=== PATIENT | male | born 1940 | race Caucasian/White ===

== ENCOUNTER → 2019-05-21 10:40 | Outpatient (CLI) | payer MEDICARE, OTHER, SELFPAY ==
[2018-10-28 12:39] VITALS: BMI 29.8
--- NOTE | 2019-05-21 10:56 | MRI_ITS ---
STUDY: MRI LUMBAR SPINE WITHOUT CONTRAST REASON FOR EXAM: Male, 78 years old. back pain radiating into R leg x 4 months TECHNIQUE: Standardized fat and water weighted pulse sequences were obtained in the sagittal and axial planes. COMPARISON: None FINDINGS: T12-L1: Normal endplates. Normal disc height, hydration and morphology. Normal bilateral facet joints. Normal central canal and bilateral lateral recesses. Normal bilateral intervertebral neural foramina. Normal lumbar lordosis. There is no substantial scoliosis. Normal conus medullaris that terminates at the L1. L1-2: Mild bilobed disc protrusion produces mild spinal stenosis and mild bilateral neural foraminal stenosis. L2-3: Markedly loss of disc height but no disc protrusion, spinal stenosis, or neural foraminal stenosis. L3-4: Mild bilateral facet hypertrophy and moderate ligament flavum hypertrophy. Mild broad disc protrusion produces mild spinal stenosis with mild bilateral lateral recess stenosis and mild bilateral neural foraminal stenosis. L4-5: Moderate bilateral facet hypertrophy and severe ligament flavum hypertrophy. Moderate broad disc protrusion produces moderate spinal stenosis with moderate bilateral lateral recess stenosis with abutment of the L5 nerve roots bilaterally and moderate bilateral neural foraminal stenosis with abutment of the exiting L4 nerve roots bilaterally. L5-S1: Moderate bilateral facet hypertrophy. Moderate broad disc protrusion produces moderate spinal stenosis with moderate bilateral lateral recess stenosis with abutment of the S1 nerve roots bilaterally and moderate bilateral neural foraminal stenosis with abutment of the exiting L5 nerve roots bilaterally. Normal visualized sacral ala. Normal visualized paraspinous soft tissue structures. MRI/Spine Lumbar (Routine) IMPRESSION: Multilevel degenerative changes, as described above. Electronically Signed: Teja Gomes MD at 16:03 EST Tel , Service support ,
== END ==
PROVIDERS: Referring Provider Orthopaedic Surgery Orthopaedic Surgery of the Spine; Visit Provider Orthopaedic Surgery Orthopaedic Surgery of the Spine
DX: M51.36 Other intervertebral disc degeneration, lumbar region (principal)
CPT/HCPCS: 72148

== ENCOUNTER 2021-12-07 11:18 | Day surgery (SDC) | payer MEDICARE, OTHER, SELFPAY ==
[2021-12-07] VITALS (9 sets, daily range): BP systolic 112–149; BP diastolic 63–75; PULSE 54–62; RESP 16; TEMP 36.2–36.4; O2SAT 99–100; BMI 27.3
[2021-12-07] MEDS: Lactated Ringers 1,000 ML 15 ML IV (11:55)
--- NOTE | 2021-12-07 11:57 | HP.PCM_ITS ---
History and Physical Date of Admission: 12/07/21 HISTORY AND PHYSICAL ? José Luis Gonsalez 1940 ? ? REFERRING PHYSICIAN: Juan Antonio Oakes, DO ? CHIEF COMPLAINT: Consult (Port placement) ? HPI: The patient is a 81 year old male with a diagnosis of Malignant neoplasm of stomach, unspecified location (hcc) (primary encounter diagnosis). José Luis is currently scheduled to undergo chemotherapy and needs vascular access for treatment. The patient denies a prior history of central venous access. ? The patient is right hand dominant. ? The patient is being seen by me today at the request of Dr. Oakes for my opinion and advice regarding Malignant neoplasm of stomach, unspecified location (hcc) (primary encounter diagnosis). ? ? PAST MEDICAL HISTORY PAST MEDICAL HISTORY Diagnosis Date ? Arthritis ? ? Betancur esophagus ? ? Diabetes (HCC) ? ? Lumbar stenosis ? ? ? PAST SURGICAL HISTORY PAST SURGICAL HISTORY Procedure Laterality Date ? EGD DIAGNOSTIC ? 11/17/2021 ? PAST SURGICAL HISTORY OF ? ? ? spine injections for pain management ? REVISE MEDIAN N/CARPAL TUNNEL SURG Bilateral 01/31/2021 ? Bilateral carpal tunnel release ? ? ? CURRENT MEDICATIONS Current Outpatient Medications Medication Sig Dispense Refill ? tamsulosin (FLOMAX) 0.4 mg Take 1 capsule by mouth daily at bedtime. 30 capsule 5 ? ondansetron orally disintegrating (ZOFRAN ODT) 4 mg disintegrating tablet Take 1 tablet by mouth every 6 hours as needed for nausea/vomiting. 30 tablet 2 ? predniSONE (DELTASONE) 2.5 mg tablet Take 4 tablets by mouth once daily. ? ? ? pantoprazole DR (PROTONIX) 40 mg tablet Take 1 tablet by mouth twice daily. 60 tablet 0 ? jtywzki-lidgwcvgj-cacadof D3 (CALCIUM 500+D) 500 mg-5 mcg (200 unit) per tablet Take 1 tablet by mouth twice daily with meals. 60 tablet 1 ? hydrocortisone 2.5 % cream Apply 1 application to affected area as needed. ? ? ? LORazepam (ATIVAN) 0.5 mg Take 0.5 mg by mouth three times daily as needed. ? ? ? aluminum & magnesium hydroxide-simethicone (MAALOX PLUS EXTRA STRENGTH) 400-400-40 mg/5 mL suspension Take 15 mL by mouth every 6 hours as needed (stomach upset). 120 mL 1 ? No current facility-administered medications for this visit. ? ? ALLERGIES: Patient has no known allergies. ? PERSONAL HISTORY: SOCIAL HISTORY Social History ? Tobacco Use ? Smoking status: Former ? ? Packs/day: 0.50 ? ? Years: 6.00 ? ? Pack years: 3.00 ? ? Types: Cigarettes ? ? Quit date: 03/24/1990 ? ? Years since quittin.7 ? Smokeless tobacco: Never Vaping Use ? Vaping Use: Never used Substance Use Topics ? Alcohol use: Yes ? ? Alcohol/week: 5.6 standard drinks ? ? Types: 3 Cans of Beer (12oz), 2 Mixed Drinks per week ? ? Comment: occ. ? Drug use: No ? FAMILY HISTORY: FAMILY HISTORY FAMILY HISTORY Problem Relation Age of Onset ? Heart disease Mother ? ? Hypertension Mother ? ? Cancer Mother ? ? Stroke Brother ? ? other (tumor on back of his tongue) Brother ? ? other (Throat Cancer) Half-brother ? ? ? REVIEW OF SYMPTOMS: The review of systems data was entered by the nurse and reviewed by me ? Nursing Notes: Lor Pritchard RN 12/04/2021 2:28 PM Signed REVIEW OF SYSTEMS: General: The patient NOTES fatigue, NOTES weight loss, denies weight gain, denies feeling hot, and denies feelings of cold. Eyes: The patient denies glaucoma, denies eye injury/surgery, does not wear glasses or contacts. Ear/Nose/Throat: The patient denies allergies, denies hayfever, denies ear infections, and denies bloody noses. Cardiovascular: The patient denies chest pain, denies heart disease, denies high blood pressure,denies cardiac stent, denies prior heart attack, denies irregular heart beat, denies high cholesterol, denies poor circulation, denies heart failure, other cardiac issues, denies claudication, denies cold feet, denies peripheral arterial stent. Respiratory: The patient denies tuberculosis, denies pneumonia, denies frequent cough, denies pulmonary embolism, denies shortness of breath, and denies coughing up blood. Gastrointestinal: The patient NOTES difficulty swallowing, denies acid reflux, denies ulcers, denies vomiting, denies jaundice/hepatitis, denies gallbladder problems, denies black or tarry stools, denies hemorrhoids, denies bleeding from rectum, denies diverticulitis, denies constipation, denies diarrhea, denies loss of stool control, and denies hernias. Kidney/Bladder: The patient denies kidney stones, denies urine infections, and denies bloody urine. Skin: The patient denies a history of skin cancer, denies bleeding/changing moles, and denies a history of skin rash. Neurologic: The patient denies a history of epilepsy/convulsions, denies headaches, denies head/spinal injuries, and denies stroke/TIA. Psychiatric: The patient denies psychiatric medications, denies depression, and denies voices, denies substance abuse. Endocrine: The patient denies thyroid disorders, NOTES diabetes, and denies hormonal problems. Hematologic: The patient denies a history of bruising, denies bleeding, and denies anemia, denies blood clots. Infections: The patient denies a history of measles and mumps, denies rheumatic fever, and denies sexually transmitted diseases. Musculoskeletal: The patient denies back pain/injury, NOTES back problems, denies sciatica, denies knee/foot trouble, NOTES arthritis, or denies gout. ? ? When was patient's last Mammogram screening? N/A ? Last Colonoscopy: 2009 ? Lor Pritchard RN PHYSICAL EXAMINATION: ? General: The patient is 81 year old male, well nourished, well hydrated in no acute distress. The patient is oriented to time, place, and person. ? VITALS: Blood pressure 116/70, pulse 73, temperature 36.8 ?C (98.3 ?F), height 177.8 cm (5' 10), weight 87.6 kg (193 lb 3.2 oz), SpO2 99 %. Body mass index is 27.72 kg/m?. ? HEENT: Normal cephalic, ataumatic, pupils are equally round, sclera are anicteric, mucous membranes are moist, oropharynx is clear. Neck has no masses, asymmetry or lymphadenopathy. Thyroid is unremarkable. ? Respiratory: Clear to auscultation and percussion. Normal respiratory excursion and pattern. ? Cardiac: Examination is regular rate and rhythm. ? Abdominal exam: Soft, nontender, with no palpable masses. No hepatosplenomegaly. No palpable hernias. ? Rectal exam: exam deferred ? Extremities: no clubbing, cyanosis or edema. No adenopathy. ? Other: ? ? LABORATORY VALUES: As Noted ? RADIOLOGIC STUDIES: As Noted ? Assessment IMPRESSION: Malignant neoplasm of stomach, unspecified location (hcc) (primary encounter diagnosis), need for IV access ? PLAN: I plan to perform a right internal jugular Port-A-Cath placement. The planned surgical procedure was discussed extensively with the patient. The risks, benefits, anticipated outcomes and possible complications were mentioned. My staff has also explained the procedure in understandable terms and the patient was given the option to take printed material concerning the planned procedure. The patient had the opportunity to ask questions concerning the planned procedure. The patient freely consents to the planned procedure. ? Planned Procedure: right Internal Jugular Portacath - [id number], Ultrasound for vascular access - 79166-113-56, and Fluoroscopic for vascular access - 82454-559-78 ? Patient Weight Last 1 Encounter Wt Readings: Date: Wt: 12/04/2021 87.6 kg (193 lb 3.2 oz) ? Antibiotic: Ancef 2gm IVPB contact lens blocker to OR ? Planned Anesthetic: MAC with local ? I will not plan to access the port at the time of surgery. ? Diagnoses: (C16.9) Malignant neoplasm of stomach, unspecified location (HCC) (primary encounter diagnosis) ? ? ? The patient is being seen by me today at the request of Dr. Oakes for my opinion and advice regarding Malignant neoplasm of stomach, unspecified location (hcc) (primary encounter diagnosis). ? COVID (Procedure Consent) Procedure Criteria ? Procedure Criteria: Yes Elective The surgeon/proceduralist and patient have discussed in detail the risk of exposure to and/or potential harm posed by the COVID-19 virus with having a surgery/procedure at this time versus the risk of? delaying the surgery/procedure. It is not possible to know either the risk of delaying the surgery or procedure or chance of getting an infection with perfect accuracy, but a joint decision was made between the patient and the surgeon/proceduralist ?to proceed at this time with the scheduled surgery/procedure as indicated on the consent form. ? Nelson Bernardo III, MD I have re-examined the patient. There are no clinical changes since date of exam.
[2021-12-07] MEDS: Bupivacaine 0.25% 30 ML Vial (12:38)
[2021-12-07] MEDS: Cefazolin 2 GM in 0.9% Normal Saline 100 ML IV (13:10)
[2021-12-07] MEDS: Lidocaine 1% (20 ml mdv) 20 ML Vial (13:38)
[2021-12-07 13:40] LABS: Bedside Glucose 125 mg/dL (74-106)
--- NOTE | 2021-12-07 13:43 | OP.PCM_ITS ---
Problems Associated Problem List Diagnoses (1) Adenocarcinoma of stomach: Report of Operation Date of Procedure: 12/07/21 Pre-Operative Diagnosis: Malignant neoplasia of stomach Post-Operative Diagnosis: Same Surgery/Procedure Performed:: Placement of a right IJ PowerPort Surgeon: Nelson Bernardo friction welding machine operator: Ghassan Cee Type of Anesthesia: Local MAC Anesthesiologist: Osito El Description of Procedure: Patient was brought into the operating room. Placed in the supine position. Under excellent MAC anesthetic I ultrasound the right neck identified the internal jugular vein marked the neck and chest appropriately. The neck and chest were then sterilely prepped and draped in the usual fashion. Local was injected into the neck. Seldinger's technique was used to gain access to the internal jugular vein on the first stick. Guidewire was placed over the needle the needle was removed. Fluoroscopy was used to confirm proper placement of the guidewire. Local was injected into the chest. Incision was made electrocautery was used to create a pocket for the port. Skin hesham was made in the neck. Dilator and sheath were placed over the guidewire removing the dilator and guidewire. Single-lumen catheter was placed over the sheath that sheath was removed fluoroscopy was used to confirm proper length. It flushed and irrigated well I tunneled from the pocket created over the collarbone into the neck and brought the catheter down. I cut the catheter to length placed the locking hub on the catheter placed the port onto the catheter and secured the tube with a locking hub. It flushed and irrigated well and was flushed with 5 cc of hep flush. The port was sutured into the pocket with 2 sutures of 2-0 Prolene. Skin incisions were brought together with deep dermal stitches of 3-0 Vicryl then a running 4-0 Monocryl. Dermabond was applied silver dressings were applied and the patient tolerated the procedure well. Portable chest x-ray was ordered. Admit VTE Documentation VTE Present on Admission: No VTE Mechan Device Prophylaxis: SCD's VTE Pharm Prophylaxis ordered?: No Reason prophylaxis not ordered:: Treatment Not Indicated
--- NOTE | 2021-12-07 13:49 | DCINST_ITS ---
Discharge Instructions Procedure Port-A-Cath Diet Discharge Diet: No restrictions (Pain medication may cause nausea. You should typically eat light foods as you take your pain medication.) Activity Discharge Activity: May Shower (with the bandage in place 1-2 days after surgery. DO NOT SHOWER WHEN YOUR PORT IS ACCESSED.) Additional Activity Instructions:: May not drive, work with heavy equipment, or sign legal documents for [address]. [address] if you are no longer taking narcotic pain medications. You may drive when you are no longer taking pain medications. Dressing / Incision Additional Dressing/Incision Instructions:: Leave the bandage on for 2-3 days. When you remove the bandage, leave the steri-strips intact until they fall off. Follow Up Care Please Follow Up With: Mahi Knapp PA-C When: Call office to schedule an appointment to be seen in 7 days. Test Results: Test results from this visit will be discussed in further detail at your follow- up appointment, if applicable. Discharge Plan Admission Attending Provider: Nelson Bernardo Primary Care Provider: Cecelia Villasenor Discharge Orders/Prescriptions Prescriptions: New oxycodone-acetaminophen [Percocet] 5-325 mg tablet 1 tab PO Q4H PRN (Reason: pain) 5 Days Qty: 20 0RF No Action prednisone 10 mg tablet 10 mg PO DAILY Label Comments: TAKE 2 TABLETS BY MOUTH ONCE DAILY ondansetron HCl 4 mg tablet 4 mg PO Q8H PRN PRN (Reason: Nausea) Label Comments: TAKE 1 TABLET BY MOUTH EVERY 8 HOURS NEEDED FOR NAUSEA AND VOMITING temazepam [Restoril] 15 mg Capsule 15 mg PO QHS PRN (Reason: Sleep) pantoprazole [Protonix] 40 mg Tablet,Delayed Release (Dr/Ec) 40 mg PO BID calcium carbonate-vitamin D3 [Oyster Shell + D3] 250 mg-3.125 mcg (125 unit) Tablet 2 tab PO BID tamsulosin 0.4 mg capsule 4 mg PO QHS Label Comments: TAKE 1 CAPSULE BY MOUTH ONCE DAILY AT BEDTIME Referrals / Follow Up: Cecelia Villasenor DO [Primary Care Provider] - Disposition Disposition (needs filled in before D/C Order can be placed): Home, Self Care
--- NOTE | 2021-12-07 14:05 | RAD_ITS ---
STUDY: X-RAY CHEST REASON FOR EXAM: Male, 81 years old. Port placement. TECHNIQUE: Single AP portable view of the chest. COMPARISON: None. FINDINGS: A right-sided portacatheter has been inserted. The tip is at the junction of the superior vena cava and right atrium. EKG electrodes are seen. The lungs are clear and expanded. There is no demonstrated pleural abnormality. Normal size heart. Normal mediastinum and darleen. Normal visualized pulmonary arteries. There is atherosclerotic calcification of the aortic arch with tortuosity. There are diffuse degenerative changes of the visualized thoracic spine. Normal visualized ribs, clavicles, and shoulders. There is no demonstrated abnormality of the visualized soft tissue structures of the upper abdomen. RAD/Chest 1 View (Portable) IMPRESSION: The tip of the right niles catheter is at the junction of the superior vena cava and right atrium. Electronically Signed: Zackary Shi MD at 14:22 EDT ,
== END 2021-12-07 15:10 | disposition home or self-care (01) ==
LOC: SDC 11:22 → AC 11:22
PROVIDERS: PCP Family Medicine; Referring Provider Surgery; Visit Provider Surgery
PROC: (CPT 36561; principal; 2021-12-07 12:45)
DX: Z45.2 Encounter for adjustment and management of vascular access device (principal); C16.9 Malignant neoplasm of stomach, unspecified; M35.3 Polymyalgia rheumatica; E11.9 Type 2 diabetes mellitus without complications; F17.210 Nicotine dependence, cigarettes, uncomplicated; Z87.19 Personal history of other diseases of the digestive system; K21.9 Gastro-esophageal reflux disease without esophagitis
CPT/HCPCS: 36561; 00532; 71045; 77001; 82962; J7120; C1788; J2405

== ENCOUNTER 2021-12-26 07:40 | Emergency (ER) | payer MEDICARE, OTHER, SELFPAY ==
[2021-12-26 07:41] VITALS: BP 126/80; PULSE 102; RESP 18; TEMP 36.4; O2SAT 98; BMI 27.3
--- NOTE | 2021-12-26 07:54 | ED.VIS.GI ---
HPI HPI - GI History of Present Illness Chief Complaint: GI Bleed Detail of Chief Complaint: Abdominal pain, diarrhea, and rectal bleeding Informant: patient Abdominal Pain/Flank Pain Current Severity: 10/31 Narrative Narrative: Patient presents to the emergency department complaint of diarrhea that started yesterday approximately 11 AM. Patient had frequent watery stools. He had some nausea but no vomiting. Patient complains of abdominal pain. Patient states that this morning he had 2 bowel movements that were purely blood. Patient has history of stomach cancer and is not a surgical candidate but is receiving chemotherapy. Last chemotherapy was 1 week ago. Patient describes some upper abdomen and chest pain as well. No prior abdominal surgeries. No recent antibiotic usage. No recent travel. Denies fever or recent illness otherwise. Prior similar symptoms: No PFSH PFSH Medical History (Updated 12/26/21 @ 11:[address] Katt Amaya, DO) Acute pain of right knee Arthritis Betancur's esophagus without dysplasia Bilateral low back pain with sciatica Cancer Diabetes mellitus Difficulty swallowing Dyspnea Dyspnea on exertion Erectile dysfunction Former smoker Gastric reflux History of steroid therapy History of stress test Injury of head and neck Myalgia Polymyalgia rheumatica Throat discomfort Wears dentures Wears hearing aid Home Medications calcium carbonate 250 mg-vitamin D3 3.125 mcg (125 unit) tablet (Oyster Shell + D3) 2 tab PO BID 12/06/21 [History Last Taken Unknown] ondansetron HCl 4 mg tablet 4 mg PO Q8H PRN PRN Nausea 12/06/21 [History Last Taken Unknown] pantoprazole 40 mg tablet,delayed release (Protonix) 40 mg PO BID GERD 12/06/21 [History Last Taken 12/07/21 07:00] prednisone 10 mg tablet 10 mg PO DAILY 12/06/21 [History Last Taken Unknown] tamsulosin 0.4 mg capsule 4 mg PO QHS urine flow 12/06/21 [History Last Taken Unknown] temazepam 15 mg capsule (Restoril) 15 mg PO QHS PRN Sleep 12/06/21 [History Last Taken Unknown] oxycodone-acetaminophen 5 mg-325 mg tablet (Percocet) 1 tab PO Q4H PRN pain 5 days #20 tabs 12/07/21 [Rx Last Taken Unknown] Allergy/AdvReac Type Severity Reaction Status Date / Time No Known Allergies Allergy Verified 12/26/21 07:42 Family History (Updated 10/28/18 @ 12:56 by Fide Marcelino) Mother CVA (cerebral vascular accident) Cancer kidney Surgical History History of carpal tunnel release of both wrists History of esophagogastroduodenoscopy (EGD) Social History (Updated 10/28/18 @ 13:[address] Juan Miguel Hodge, DO) Smoking Status: Former smoker Tobacco: How many years used: 25 how long ago did patient quit smokin, 0.5ppd second hand exposure: Yes ROS ROS ED Review of Systems ROS Unobtainable: other Constitutional Constitutional ED: Reports lethargy; Denies chills, fever(s), sweats or weight loss Eyes Eyes: Denies blurry vision, change in vision or diplopia ENT ENT ED: Denies rhinorrhea or sore throat Cardiovascular Cardiovascular: Reports chest pain; Denies orthopnea or racing heartbeat Respiratory/Chest Respiratory/Chest: Denies cough, dyspnea, dyspnea on exertion, orthopnea or sputum Gastrointestinal Gastrointestinal: Reports abdominal pain, diarrhea, nausea and other Details: Bright red blood per rectum ; Denies vomiting Genitourinary Genitourinary ED: Denies dysuria, hematuria or urinary frequency Musculoskeletal Musculoskeletal: Denies arthralgias, back pain, myalgias or neck pain Integumentary Denies abscess, Abrasions or rash Neurologic Neurologic: Denies headache(s) or weakness Psychiatric Psychiatric: Denies anxiety, depression or suicidal thoughts Endocrine Endocrinology: Denies polydipsia, polyphagia or polyuria Hematologic/Lymphatic Hematologic/Lymphatic: Denies easy bleeding, easy bruising or lymphadenopathy Allergic/Immunologic Allergic/Immunologic ED: Denies mouth swelling, tongue swelling or urticaria EXAM Physical Exam Const Vital Signs: 12/26/21 07:41 12/26/21 08:40 12/26/21 09:29 Temperature 97.6 F L Temperature Source Temporal Pulse Rate 102 H 72 82 Respiratory Rate 18 16 16 Blood Pressure 126/80 H 139/88 H 140/79 H Blood Pressure Mean 95 105 99 Pulse Ox 98 99 97 Oxygen Delivery Method Room Air Room Air Room Air Positive well nourished and well developed General Appearance ED: well developed and NAD HEENT Reports TM's clear and moist mucous membranes normocephalic and atraumatic; Negative for trauma or tenderness Tympanic Membrane ED: Yes TM's clear Eyes PERRL and EOMs intact bilaterally General Eye ED: Negative for pale conjunctiva or scleral icterus Neck no lymphadenopathy, supple and no JVD General: Negative for tenderness Chest Wall inspection of chest normal and palpation of chest normal Chest: Negative for tenderness Resp normal respiratory effort and clear to auscultation bilaterally Effort and Inspection: Negative for respiratory distress or pain with movement Auscultation: Negative for rhonchi, wheezes or diminished lung sounds Cardio regular rate, regular rhythm, S1 normal heart sound, S2 normal heart sound and no murmurs Peripheral Pulses: pulses 2+ throughout GI normal to inspection, nondistended, normoactive bowel sounds, soft to palpation, non-distended and no masses GI Narrative: Diffuse tenderness to palpation throughout. There is guarding. There is no rebound or rigidity noted. Back/Spine no CVA tenderness and no thoracic nor lumbar tenderness Extremity normal to inspection General Extremety ED: Negative for edema General Extremity: Negative for edema Neuro oriented x3, CN's II-XII intact bilaterally, no sensory deficits noted and gait normal Sensorium / Orientation: awake, alert, oriented to person, oriented to place and oriented to time Motor Exam: strength 5/5 throughout and strength abnormal Psych mental status grossly normal Skin no rashes or lesions noted and no wounds MDM MDM MDM Narrative Medical decision making narrative: IV line established on arrival. Patient placed on normal saline. Lab work-up showed a normal white count with a hemoglobin of 16. His lactate was elevated 5.9. CT CT scan of the abdomen pelvis with IV contrast ordered and was read by radiology as findings suggestive of small bowel necrosis with gas and portal venous system in the liver with free intraperitoneal air. Case was immediately discussed with general surgeon on-call Dr. Franics who will present to the emergency department to evaluate patient. I was asked to transfer for tertiary care center. I discussed case with [facility] and accepted transfer the patient to their facility. The surgeon there was made aware and patient will be transferred to their emergency department. I spoke with the emergency room physician there as well. Lab Data Attestation: I reviewed the patient's lab results. Labs: Laboratory Results - last 24 hr 12/26/21 12/26/21 12/26/21 08:11 08:11 08:11 WBC 7.6 RBC 5.44 Hgb 16.5 Hct 48.5 MCV 89.2 MCH 30.3 MCHC 34.0 RDW Std Deviation 40.0 RDW Coeff of Nancy 12.3 Plt Count 345 MPV 10.0 Immature Gran % (Auto) 0.100 Neut % (Auto) 86.6 H Lymph % (Auto) 6.4 L [place] % (Auto) 6.1 Eos % (Auto) 0.3 Baso % (Auto) 0.5 Absolute Neuts (auto) 6.6 Absolute Lymphs (auto) 0.49 L Nucleated RBC % 0 Platelet Estimate ADEQUATE RBC Morphology NORM C+C Sodium 136 Potassium 4.4 Chloride 104 Carbon Dioxide 19.0 L Anion Gap 13 BUN 50 H Creatinine 1.96 H Estim Creat Clear Calc 31.55 Est GFR (MDRD) Af Amer 43 L Est GFR (MDRD) Non-Af 35 L BUN/Creatinine Ratio 25.5 H Glucose 277 H Lactic Acid 5.9 H* Calcium 9.7 Total Bilirubin 0.60 AST 15 ALT 30 Alkaline Phosphatase 66 Troponin I High Sens 32 Total Protein 6.6 Albumin 3.0 L Globulin 3.6 Albumin/Globulin Ratio 0.8 L Lipase 47 L Urine Color Urine Clarity Urine pH Ur Specific [place] Urine Protein Urine Glucose (UA) Urine Ketones Urine Occult Blood Urine Nitrite Urine Bilirubin Urine Urobilinogen Ur Leukocyte Esterase Urine RBC Urine WBC Ur Squamous Epith Cells Urine Bacteria Hyaline Casts Urine Mucus 12/26/21 08:53 WBC RBC Hgb Hct MCV MCH MCHC RDW Std Deviation RDW Coeff of Nancy Plt Count MPV Immature Gran % (Auto) Neut % (Auto) Lymph % (Auto) [place] % (Auto) Eos % (Auto) Baso % (Auto) Absolute Neuts (auto) Absolute Lymphs (auto) Nucleated RBC % Platelet Estimate RBC Morphology Sodium Potassium Chloride Carbon Dioxide Anion Gap BUN Creatinine Estim Creat Clear Calc Est GFR (MDRD) Af Amer Est GFR (MDRD) Non-Af BUN/Creatinine Ratio Glucose Lactic Acid Calcium Total Bilirubin AST ALT Alkaline Phosphatase Troponin I High Sens Total Protein Albumin Globulin Albumin/Globulin Ratio Lipase Urine Color MARLEY Urine Clarity Clear Urine pH 5.0 Ur Specific [place] 1.025 Urine Protein 30 H Urine Glucose (UA) 100 H Urine Ketones 5 H Urine Occult Blood 10 H Urine Nitrite Negative Urine Bilirubin 1 H Urine Urobilinogen Normal Ur Leukocyte Esterase 25 H Urine RBC 0-5 SEEN Urine WBC 0-5 SEEN Ur Squamous Epith Cells 0-5 SEEN Urine Bacteria 2+ Hyaline Casts 0-5 SEEN Urine Mucus 0 SEEN Radiography Diagnostic Testing: Clinical Impression(s) from Imaging Studies Abdomen/Pelvis CT 12/26/21 09:00 IMPRESSION: Findings suggestive of a small bowel necrosis with gas in the portal venous system in the liver. Free intraperitoneal and retroperitoneal air. Free fluid in the pelvis. N.B. : The above Results were Read Back by Zackary Shi MD to Katt Amaya MD, and understanding confirmed on 12/26/2021 09:47:57 (ET). Electronically Signed: Zackary Shi MD at 9:49 EDT , ADDENDUM: 12/26/21 0956 IMPRESSION: Findings suggestive of a small bowel necrosis with gas in the portal venous system in the liver. Free intraperitoneal and retroperitoneal air. Free fluid in the pelvis. N.B. : The above Results were Read Back by Zackary Shi MD to Katt Amaya MD, and understanding confirmed on 12/26/2021 09:47:57 (ET). Electronically Signed: Zackary Shi MD at 9:49 EDT , ADDENDUM: 12/26/21 1009 IMPRESSION: undefined EKG Initial EKG: Attestation: I personally reviewed and interpreted this EKG as follows: Comments: Sinus rhythm with a ventricular rate of 90 bpm with right bundle branch block Critical Care Time Critical care time (excluding procedures): 30-74 minutes, Including time spent:, Discussing w/Patient &/or Family/Shoe Caser, Discussing w/Consultants, Arranging Admission or Transfer, Performing Direct Patient Care at Bedside and - (30 minutes) Discharge Plan Triage Chief Complaint: GI Bleed ED Provider: Katt Amaya Dx/Rx/DC Orders Clinical Impression: Abdominal pain, Perforated small intestine, GI bleed, History of diabetes mellitus, Gastric cancer Prescriptions: No Action prednisone 10 mg tablet 10 mg PO DAILY Label Comments: TAKE 2 TABLETS BY MOUTH ONCE DAILY ondansetron HCl 4 mg tablet 4 mg PO Q8H PRN PRN (Reason: Nausea) Label Comments: TAKE 1 TABLET BY MOUTH EVERY 8 HOURS NEEDED FOR NAUSEA AND VOMITING temazepam [Restoril] 15 mg Capsule 15 mg PO QHS PRN (Reason: Sleep) pantoprazole [Protonix] 40 mg Tablet,Delayed Release (Dr/Ec) 40 mg PO BID calcium carbonate-vitamin D3 [Oyster Shell + D3] 250 mg-3.125 mcg (125 unit) Tablet 2 tab PO BID tamsulosin 0.4 mg capsule 4 mg PO QHS Label Comments: TAKE 1 CAPSULE BY MOUTH ONCE DAILY AT BEDTIME oxycodone-acetaminophen [Percocet] 5-325 mg tablet 1 tab PO Q4H PRN (Reason: pain) 5 Days Qty: 20 0RF Primary Care Provider: Cecelia Villasenor Referrals: Cecelia Villasenor DO [Primary Care Provider] - Disposition Disposition: DC/Tx to Another Type of HCF
--- NOTE | 2021-12-26 07:57 | NURSING ---
NO OLD EKGS
[2021-12-26] MEDS: Morphine 4 MG/ML Syringe IV ×2 (08:07→10:47)
[2021-12-26] MEDS: Ondansetron 4 MG/2 ML Vial IV ×2 (08:07→12:08)
[2021-12-26] MEDS: 0.9% Normal Saline 1,000 ML 125 ML IV (08:08)
[2021-12-26 08:26] LABS: Absolute Lymphocyte Count 0.49 X10^3/uL (0.83-4.51); Absolute Neutrophil Count 6.6 X10^3/uL (2.0-7.7); Basophil# 0.04 X10^3/uL; Basophil% 0.5 % (0-1); Eosinophil# 0.02 X10^3/uL; Eosinophils% 0.3 % (0-5); Hematocrit 48.5 % (40-54); Hemoglobin 16.5 g/dL (13.0-16.5); Lymphocyte # 0.49 X10^3/ul (0.83-4.51); Lymphocyte % 6.4 % (19-41); Mean Corpuscular Hgb 30.3 pg (27.0-32.0); Mean Corpuscular Volume 89.2 fL (80-94); Monocyte# 0.46 X10^3/uL; Monocyte% 6.1 % (0-10); NRBC Flagged by Analyzer 0 % (0-5); Neutrophil # 6.58 X10^3/uL (2.7-7.7); Neutrophil % 86.6 % (47-70); POSITIVE DIFFERENTIAL YES; Platelet Count 345 K/mm3 (150-450); RBC Distribution Width CV 12.3 % (11.6-14.6); Red Blood Count 5.44 M/mm3 (4.6-6.2); White Blood Count 7.6 K/mm3 (4.4-11.0)
[2021-12-26 08:31] LABS: Differential Indicated SCAN CRITERIA MET
[2021-12-26 08:40] VITALS: BP 139/88; PULSE 72; RESP 16; O2SAT 99
[2021-12-26 08:48] LABS: ALB/GLOB Ratio 0.8 RATIO (0.9-2.4); AST(SGOT) 15 U/L (15-37); Alanine Aminotransfer ALT/SGPT 30 U/L (16-61); Alkaline Phosphatase 66 U/L (45-117); Anion Gap 13 (5-15); BUN 50 mg/dL (7-18); BUN/Creat Ratio 25.5 RATIO (10-20); Calcium,Total 9.7 mg/dL (8.5-10.1); Chloride 104 mmol/L (98-107); Creatinine, Serum 1.96 mg/dL (0.70-1.30); EST Glomerular Filtration Rate 35 mL/min (>60); Est Glom Filt Rate - Afr Amer 43 mL/min (>60); Estimated Creatinine Clearance 31.55 ml/min; Globulin 3.6 g/dL (2.2-4.2); Glucose 277 mg/dL (74-106); Lipase 47 U/L (73-393); Potassium 4.4 mmol/L (3.5-5.1); Protein, Total 6.6 g/dL (6.4-8.2); Sodium Level 136 mmol/L (136-145); Troponin-I HS 32 pg/mL (3.0-78.0)
[2021-12-26 08:49] LABS: Lactic Acid 5.9 mmol/L (0.4-1.9)
[2021-12-26 08:55] LABS: Platelet Estimate ADEQUATE (ADEQ); Red Cell Morphology NORM C+C NORMAL (NORM C&C)
[2021-12-26 08:59] LABS: Mucous, Urine 0 SEEN /hpf (<or=2+)
--- NOTE | 2021-12-26 09:00 | CT_ITS ---
STUDY: CT ABDOMEN AND PELVIS WITH CONTRAST REASON FOR EXAM: Male, 81 years old. History of colon carcinoma. Currently on oral chemotherapy. RADIATION DOSAGE (If Supplied By Facility): CTDIvol = ( 14.08 ) mGy, DLP = ( 862.99 ) mGycm TECHNIQUE: Transaxial images were obtained from the dome of the diaphragm to the symphysis pubis without oral contrast. IV 100mL Isovue-300 was administered. Sagittal and coronal images were reconstructed. Individualized dose optimization techniques were used for this CT. COMPARISON: None. FINDINGS: There is evidence of a atelectasis at the lung bases. There is evidence of a pneumomediastinum. An air-fluid level is seen within the esophagus. Coronary artery calcification. There is evidence of free intraperitoneal and retroperitoneal air. Gas is seen within the periphery of the liver suggestive of a portal venous gas from a bilateral infarction. There is evidence of a abnormal small bowel loops with air in the wall in keeping with diffuse small bowel necrosis. Gas and fecal material is seen in the colon. Normal gallbladder and extrahepatic biliary system. Normal spleen. Normal pancreas. Normal bilateral adrenal glands. Normal right kidney. Normal left kidney. Normal visualized stomach. Normal small intestine. There are multiple colonic diverticula consistent with diverticulosis. There is a calcified appendicolith. There is diffuse atherosclerotic calcification of the abdominal aorta, without a demonstrated aneurysm. Normal inferior vena cava. Normal retroperitoneum. Normal urinary bladder. Free fluid in the pelvis. Bilateral inguinal hernias worse on the right side. Air is seen within the hernias. Normal osseous structures. CT/Abdomen/Pelvis W IV Cont ONLY IMPRESSION: Findings suggestive of a small bowel necrosis with gas in the portal venous system in the liver. Free intraperitoneal and retroperitoneal air. Free fluid in the pelvis. N.B. : The above Results were Read Back by Zackary Shi MD to Katt Amaya MD, and understanding confirmed on 12/26/2021 09:47:57 (ET). Electronically Signed: Zackary Shi MD at 9:49 EDT ,
[2021-12-26 09:08] LABS: Color, Urine AMBER (Yellow); Glucose, Dipstick 100 mg/dl (Normal); Ketone-Dipstick 5 mg/dl (Negative); Leukocyte Esterase-Dipstick 25 /ul (Negative); Nitrite-Dipstick Negative (Negative); Occult Blood-Urine 10 /ul (Negative); Protein-Dipstick 30 mg/dl (Negative); Specific Gravity, Urine 1.025 (1.002-1.030); Urine Bilirubin Dipstick 1 mg/dL (Negative); Urine Clarity Clear (Clear); Urine Urobilinogen Normal (Normal)
[2021-12-26 09:22] LABS: Bacteria 2+ /hpf (None Seen); Hyaline Cast 0-5 SEEN /lpf (0-5); Red Blood Cells-Urine 0-5 SEEN /hpf (0-5); Squamous Epithelial Cells - UA 0-5 SEEN /hpf (0-5); White Blood Cells 0-5 SEEN /hpf (0-5)
[2021-12-26 09:29] VITALS: BP 140/79; PULSE 82; RESP 16; O2SAT 97
--- NOTE | 2021-12-26 10:15 | PCM.HP.STD ---
[facility] - General General Date of Service: 12/26/21 Chief Complaint: Right red blood per rectum [facility] Narrative TRISTAN GONSALEZ, is a 81 M with history of diabetes mellitus, polymyalgia rheumatica on chronic prednisone, Betancur's esophagus, and gastric adenocarcinoma currently receiving chemotherapy who presents to [facility] with complaints of abdominal pain, diarrhea, and bright red blood per rectum. Patient presents with his who provides majority of the history. She states that yesterday her began with diarrhea at approximately 11 AM. She notified his oncology office of this change and was advised to begin some Imodium. Patient then had additional episode at 11 PM and this was associated with some bright red blood per rectum. On seeing this, she became concerned but her seem to be otherwise okay and a retired to bed for the night. On awakening this morning he described more abdominal pain it was at this point they decided to present for further evaluation. Patient's ER work-up is notable for normal white blood cell count but left shift is present. Lactic acid is elevated at 5.9. CT imaging of the abdomen pelvis found pneumoperitoneum, portal venous gas, pneumomediastinum, pneumoretroperitoneum, pneumo intestinalis, and free fluid within the abdomen. Mrs. Gonsalez states that her was first diagnosed with gastric adenocarcinoma 4 to 5 weeks ago after complaints of difficulty swallowing. It initially been suspected to be related to his pre-existing diagnosis of Betancur's esophagus, but EGD confirmed the former on biopsy. Additionally, during staging he was told he is not a surgical candidate because the cancer was too advanced. We thus underwent a laparoscopic J-tube placement and port placement last month to begin enteral nutrition and palliative chemotherapy. Patient's states that this chemotherapy was initiated 1 week ago. She also reports that her 's prednisone dose was doubled secondary to more complaints with his polymyalgia and that he is now taking 20 mg daily. Patient's prior surgical history consists of carpal tunnel release and EGD. [facility] Medical History (Updated 12/26/21 @ 11:[address] Myles Francis MD) Acute pain of right knee Arthritis Betancur's esophagus without dysplasia Bilateral low back pain with sciatica Cancer Diabetes mellitus Difficulty swallowing Dyspnea Dyspnea on exertion Erectile dysfunction Former smoker Gastric reflux History of steroid therapy History of stress test Injury of head and neck Myalgia Polymyalgia rheumatica Throat discomfort Wears dentures Wears hearing aid Home Medications calcium carbonate 250 mg-vitamin D3 3.125 mcg (125 unit) tablet (Oyster Shell + D3) 2 tab PO BID 12/06/21 [History Last Taken Unknown] ondansetron HCl 4 mg tablet 4 mg PO Q8H PRN PRN Nausea 12/06/21 [History Last Taken Unknown] pantoprazole 40 mg tablet,delayed release (Protonix) 40 mg PO BID GERD 12/06/21 [History Last Taken 12/07/21 07:00] prednisone 10 mg tablet 10 mg PO DAILY 12/06/21 [History Last Taken Unknown] tamsulosin 0.4 mg capsule 4 mg PO QHS urine flow 12/06/21 [History Last Taken Unknown] temazepam 15 mg capsule (Restoril) 15 mg PO QHS PRN Sleep 12/06/21 [History Last Taken Unknown] oxycodone-acetaminophen 5 mg-325 mg tablet (Percocet) 1 tab PO Q4H PRN pain 5 days #20 tabs 12/07/21 [Rx Last Taken Unknown] Allergy/AdvReac Type Severity Reaction Status Date / Time No Known Allergies Allergy Verified 12/26/21 07:42 Family History (Updated 10/28/18 @ 12:56 by Fide Marcelino) Mother CVA (cerebral vascular accident) Cancer kidney Surgical History History of carpal tunnel release of both wrists History of esophagogastroduodenoscopy (EGD) Social History (Updated 10/28/18 @ 13:[address] Juan Miguel Hodge, DO) Smoking Status: Former smoker Tobacco: How many years used: 25 how long ago did patient quit smokin, 0.5ppd second hand exposure: Yes ROS Constitutional Constitutional: Denies fever(s) Cardiovascular Cardiovascular: Denies chest pain Gastrointestinal Gastrointestinal: Reports abdominal pain, diarrhea and hematochezia Integumentary Integumentary: Denies rash Vital Signs Vital Signs Vital Signs: 12/26/21 07:41 12/26/21 08:40 12/26/21 09:29 Temperature 97.6 F L Temperature Source Temporal Pulse Rate 102 H 72 82 Respiratory Rate 18 16 16 Blood Pressure 126/80 H 139/88 H 140/79 H Blood Pressure Mean 95 105 99 Pulse Ox 98 99 97 Oxygen Delivery Method Room Air Room Air Room Air Weight Weight: 190 lb 7.67 oz Body Mass Index (BMI) 27.3 Physical Exam Const alert and oriented x3 General Appearance: cooperative Chest Chest Narrative: No crepitus palpable along sternum Resp normal respiratory effort GI GI Narrative: Patient with well approximated port site incisions from her recent laparoscopy and jejunostomy is secured at the skin with a nylon suture in the left abdomen. There is a small amount of erythema around this tube. Patient's abdomen is nondistended. He is overall soft, but with very focal tenderness in the supraumbilical position with palpation. Results Lab / Micro Data Result Diagrams: 12/26/21 08:11 12/26/21 08:11 Labs: Laboratory Results - last 24 hr 12/26/21 08:11: WBC 7.6, RBC 5.44, Hgb 16.5, Hct 48.5, MCV 89.2, MCH 30.3, MCHC 34.0, RDW Std Deviation 40.0, RDW Coeff of Nancy 12.3, Plt Count 345, MPV 10.0, Immature Gran % (Auto) 0.100, Neut % (Auto) 86.6 H, Lymph % (Auto) 6.4 L, [place] % (Auto) 6.1, Eos % (Auto) 0.3, Baso % (Auto) 0.5, Absolute Neuts (auto) 6.6, Absolute Lymphs (auto) 0.49 L, Nucleated RBC % 0, Platelet Estimate ADEQUATE, RBC Morphology NORM C+C 12/26/21 08:11: Sodium 136, Potassium 4.4, Chloride 104, Carbon Dioxide 19.0 L, Anion Gap 13, BUN 50 H, Creatinine 1.96 H, Estim Creat Clear Calc 31.55, Est GFR (MDRD) Af Amer 43 L, Est GFR (MDRD) Non-Af 35 L, BUN/Creatinine Ratio 25.5 H, Glucose 277 H, Calcium 9.7, Total Bilirubin 0.60, AST 15, ALT 30, Alkaline Phosphatase 66, Troponin I High Sens 32, Total Protein 6.6, Albumin 3.0 L, Globulin 3.6, Albumin/Globulin Ratio 0.8 L, Lipase 47 L 12/26/21 08:11: Lactic Acid 5.9 H* 12/26/21 08:53: Urine Color MARLEY, Urine Clarity Clear, Urine pH 5.0, Ur Specific [place] 1.025, Urine Protein 30 H, Urine Glucose (UA) 100 H, Urine Ketones 5 H, Urine Occult Blood 10 H, Urine Nitrite Negative, Urine Bilirubin 1 H, Urine Urobilinogen Normal, Ur Leukocyte Esterase 25 H, Urine RBC 0-5 SEEN, Urine WBC 0-5 SEEN, Ur Squamous Epith Cells 0-5 SEEN, Urine Bacteria 2+, Hyaline Casts 0-5 SEEN, Urine Mucus 0 SEEN Micro: Microbiology 12/26/21 08:00 Stool Stool Occult Blood (SONI) - Final Occult Blood Positive Radiology Impression Abdomen/Pelvis CT 12/26/21 09:00 IMPRESSION: Findings suggestive of a small bowel necrosis with gas in the portal venous system in the liver. Free intraperitoneal and retroperitoneal air. Free fluid in the pelvis. N.B. : The above Results were Read Back by Zackary Shi MD to Katt Amaya MD, and understanding confirmed on 12/26/2021 09:47:57 (ET). Electronically Signed: Zackary Shi MD at 9:49 EDT , ADDENDUM: 12/26/21 0956 IMPRESSION: Findings suggestive of a small bowel necrosis with gas in the portal venous system in the liver. Free intraperitoneal and retroperitoneal air. Free fluid in the pelvis. N.B. : The above Results were Read Back by Zackary Shi MD to Katt Amaya MD, and understanding confirmed on 12/26/2021 09:47:57 (ET). Electronically Signed: Zackary Shi MD at 9:49 EDT , ADDENDUM: 12/26/21 1009 IMPRESSION: undefined Assessment & Plan Assessment/Plan (1) Adenocarcinoma of stomach: (2) Diabetes mellitus: (3) Chronic use of steroids: (4) Pneumoperitoneum: (5) Pneumatosis intestinalis: PLAN: Plan This is an elderly gentleman with complex past medical history?including recent diagnosis of gastric adenocarcinoma actively receiving palliative chemotherapy who presents with signs and symptoms of perforated viscus. He is currently hemodynamically stable, but his emergency room work-up and exam are very concerning for a significant intraperitoneal insult. With a history of gastric adenocarcinoma, presence of pneumatosis intestinalis on CT, and a history of bright red blood per rectum all 3 portions of patient's GI tract are implicated. Additionally, with concurrent chemotherapy use, chronic steroid use, and history of diabetes he is at a very high risk for anastomotic failure. With the degree of small bowel involved on CT imaging, patient would be at a very high risk for requiring total parenteral nutrition. I have advised the patient's , who is a retired RN, of this impression and that patient would require a emergency exploratory laparotomy with probable bowel resection and possible open abdomen management. She clearly states this is something they would like done. She questions whether it is best to be done here at [place] or at [facility] where he has had his prior care. I have suggested the latter may be a better option given his numerous risk factors and foreseeable need for ongoing intensive care management plus special dietary needs. This impression is also been shared to emergency medicine. They will begin to seek emergent transfer at this time. In the interim I recommend ongoing IV fluid support and initiation of empiric antibiotic therapy with intensive hemodynamic monitoring. Charges/Coding Visit Charges Inpatient E&M: 34179 Init Hosp L2
[2021-12-26] MEDS: 0.9% Normal Saline 1,000 ML 200 ML IV (11:10)
--- NOTE | 2021-12-26 11:10 | NURSING ---
CALLED [facility], TALKED TO MATTIE. SHE WILL REPAGE THE SURGEON AND CALL US BACK
--- NOTE | 2021-12-26 11:35 | NURSING ---
CALLED [facility], ETA IS 20 MIN LIGHT AND KELY
[2021-12-26 11:58] VITALS: BP 151/78; PULSE 84; RESP 16; TEMP 36.8; O2SAT 97
[2021-12-26 12:18] LABS: Reflex Lactate? Y
== END 2021-12-26 12:09 | disposition other institution (70) ==
PROVIDERS: Emergency Provider Emergency Medicine; PCP Family Medicine; Visit Provider Emergency Medicine
DX: R10.9 Unspecified abdominal pain (principal); C16.9 Malignant neoplasm of stomach, unspecified; M35.3 Polymyalgia rheumatica; E11.9 Type 2 diabetes mellitus without complications; K63.89 Other specified diseases of intestine; R19.7 Diarrhea, unspecified; K92.2 Gastrointestinal hemorrhage, unspecified; R18.8 Other ascites; Z87.891 Personal history of nicotine dependence; R11.0 Nausea
CPT/HCPCS: 74177; 80053; 81001; 82274; 83605; 83690; 84484; 85025; 87811; 93005; 96361; 96365; 96375; 96376; 99285; J7030; Q9967; A4216; J2405

== ENCOUNTER 2022-02-27 11:18 | Emergency (ER) | payer MEDICARE, OTHER, SELFPAY ==
[2022-02-27 11:18] VITALS: BP 92/45; PULSE 84; RESP 16; TEMP 37.2; O2SAT 99; BMI 26.5
--- NOTE | 2022-02-27 12:06 | EDS_ITS ---
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 Oakes with oncology because of reported fever. They state that early this morning, patient had a fever as high as 102 ?F. He was administered Tylenol. His states that he was confused earlier this morning and may have lost control of his bladder, but has returned to normal. He was supposed to undergo his fifth dose of chemotherapy tomorrow that he receives every 2 to 3 weeks. Patient denies shortness of breath but has had a cough. He saw oncology yesterday and was told this is secondary to the chemotherapy. He denies any dysuria or hematuria. No other symptoms currently. His confusion has reportedly resolved. 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 Bilateral low back pain with sciatica Cancer Diabetes mellitus Difficulty swallowing Dyspnea Dyspnea on exertion Erectile dysfunction Former smoker Gastric reflux History of steroid therapy History of stress test Injury of head and neck Myalgia Polymyalgia rheumatica Throat discomfort Wears dentures Wears hearing aid Home Medications calcium carbonate 250 mg-vitamin D3 3.125 mcg (125 unit) tablet (Oyster Shell + D3) 2 tab PO BID 12/06/21 [History Last Taken Unknown] ondansetron HCl 4 mg tablet 4 mg PO Q8H PRN PRN Nausea 12/06/21 [History Last Taken Unknown] pantoprazole 40 mg tablet,delayed release (Protonix) 40 mg PO BID GERD 12/06/21 [History Last Taken 12/07/21 07:00] prednisone 10 mg tablet 10 mg PO DAILY 12/06/21 [History Last Taken Unknown] tamsulosin 0.4 mg capsule 4 mg PO QHS urine flow 12/06/21 [History Last Taken Unknown] temazepam 15 mg capsule (Restoril) 15 mg PO QHS PRN Sleep 12/06/21 [History Last Taken Unknown] oxycodone-acetaminophen 5 mg-325 mg tablet (Percocet) 1 tab PO Q4H PRN pain 5 days #20 tabs 12/07/21 [Rx Last Taken Unknown] levofloxacin 750 mg tablet 750 mg PO DAILY #10 tabs 02/27/22 [Rx Last Taken Unknown] levofloxacin 750 mg tablet 750 mg PO DAILY #7 tabs 02/27/22 [Rx Last Taken Unknown] Allergy/AdvReac Type Severity Reaction Status Date / Time No Known Allergies Allergy Verified 02/27/22 11:21 Family History Mother CVA (cerebral vascular accident) Cancer kidney Surgical History History of carpal tunnel release of both wrists History of esophagogastroduodenoscopy (EGD) Social History Smoking Status: Former smoker Tobacco: How many years used: 25 how long ago did patient quit smokin, 0.5ppd second hand exposure: Yes ROS ROS ED ROS Narrative Constitutional: Positive fever, no chills. HEENT: No sore throat. No neck pain. No loss of vision. No rhinorrhea. Cardiovascular: No chest pain. No palpitations. No pedal edema. Respiratory: Positive dry cough, no shortness of breath. Abdominal: No abdominal pain. No nausea. No vomiting. Genitourinary: No dysuria. No hematuria. Lost control of bladder this morning, resolved. Musculoskeletal: No myalgias. No arthralgias. Neurologic: No headaches. No dizziness. No lightheadedness. Skin: No rash. No change in color. Psychiatric: No depression. No anxiety. Reported confusion-resolved EXAM Physical Exam Narrative Exam Narrative: Afebrile. Vital signs noted. Nontoxic-appearing. HEENT: Normocephalic. Atraumatic. PERRL, EOMI. Neck soft and supple. No point tenderness or step off. Cardiovascular: Regular rate and rhythm. No murmurs, rubs, or gallops appreciated. Respiratory: No tachypnea. Lungs clear to auscultation bilaterally. Slightly diminished sounds right lower lobe. Gastrointestinal: Abdomen soft, nontender, with normoactive bowel sounds. No rebound or guarding. Neurological: Awake. Alert. Oriented. Nonfocal, nonlateralizing. Skin: No rash. Normal color. No pallor. Musculoskeletal: No pedal edema. Full range of motion extremities. Const Vital Signs: 02/27/22 11:18 02/27/22 12:20 02/27/22 12:20 Temperature 98.9 F 98.3 F 98.3 F Temperature Source Temporal Oral Oral Pulse Rate 84 70 70 Respiratory Rate 16 19 H 19 H Blood Pressure 92/45 L 98/53 L 98/53 L Blood Pressure Mean 60 68 68 Pulse Ox 99 97 97 Oxygen Delivery Method Room Air Room Air Room Air 02/27/22 13:07 02/27/22 13:53 Temperature 98.4 F 98.2 F Temperature Source Oral Temporal Pulse Rate 64 65 Respiratory Rate 18 19 H Blood Pressure 100/52 L 106/53 L Blood Pressure Mean 68 70 Pulse Ox 97 99 Oxygen Delivery Method Room Air Room Air MDM MDM MDM Narrative Medical decision making narrative: Neutropenic fever work-up was pursued. Patient has an elevated white count of 20.8, hemoglobin stable at 10.3, platelet count normal at 203. Respiratory swabs are negative. Electrolyte panel is grossly unremarkable. Although he has a slightly elevated lactate of 2.3, I do feel this may be secondary to slight dehydration. He was bolused normal saline 1 L intravenously and now has normal blood pressure above 100 systolic. Chest x-ray interpreted by myself shows a right-sided pneumonia and right upper and lower lobe. Urinalysis shows 10-25 WBCs. He had been given a dose of Zosyn initially intravenously. I believe the source of his fever is his pneumonia on the right side. Patient feels well and does not want admission. I am not concerned for septic shock although he has slightly elevated white count of 20 and elevated lactic acid. He is afebrile here. He is not tachycardic. 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 I discussed the patient with Dr. Parker who agrees with outpatient treatment of his pneumonia and postponing his chemotherapy. He will contact Dr. Oakes next week to see when he will receive his next dose. Pulse ox is 99% on room air without evidence of hypoxia. I do feel he can be discharged safely home with follow-up. He states he will be more comfortable at home. Return instructions were reviewed. Disposition is discharged home in stable condition. Lab Data Attestation: I reviewed the patient's lab results. Labs: Laboratory Results - last 24 hr 02/27/22 02/27/22 02/27/22 12:03 12:03 12:03 WBC 20.8 H RBC 3.52 L Hgb 10.3 L Hct 32.3 L MCV 91.8 MCH 29.3 MCHC 31.9 L RDW Std Deviation 47.8 H RDW Coeff of Nancy 14.4 Plt Count 203 MPV 9.6 Immature Gran % (Auto) 0.700 Neut % (Auto) 89.6 H Lymph % (Auto) 3.2 L [place] % (Auto) 6.3 Eos % (Auto) 0.0 Baso % (Auto) 0.2 Absolute Neuts (auto) 18.6 H Absolute Lymphs (auto) 0.67 L Nucleated RBC % 0 Sodium 139 Potassium 3.7 Chloride 107 Carbon Dioxide 27.0 Anion Gap 5 BUN 20 H Creatinine 1.06 Estim Creat Clear Calc 60.18 Est GFR (MDRD) Af Amer 87 Est GFR (MDRD) Non-Af 72 BUN/Creatinine Ratio 18.9 Glucose 171 H Lactic Acid 2.3 H* Calcium 8.9 Total Bilirubin 0.50 AST 13 L ALT 18 Alkaline Phosphatase 54 Total Protein 5.6 L Albumin 3.0 L Globulin 2.6 Albumin/Globulin Ratio 1.2 Urine Color Urine Clarity Urine pH Ur Specific [place] Urine Protein Urine Glucose (UA) Urine Ketones Urine Occult Blood Urine Nitrite Urine Bilirubin Urine Urobilinogen Ur Leukocyte Esterase Urine RBC Urine WBC Ur Squamous Epith Cells Urine Bacteria Urine Mucus 02/27/22 12:15 WBC RBC Hgb Hct MCV MCH MCHC RDW Std Deviation RDW Coeff of Nancy Plt Count MPV Immature Gran % (Auto) Neut % (Auto) Lymph % (Auto) [place] % (Auto) Eos % (Auto) Baso % (Auto) Absolute Neuts (auto) Absolute Lymphs (auto) Nucleated RBC % Sodium Potassium Chloride Carbon Dioxide Anion Gap BUN Creatinine Estim Creat Clear Calc Est GFR (MDRD) Af Amer Est GFR (MDRD) Non-Af BUN/Creatinine Ratio Glucose Lactic Acid Calcium Total Bilirubin AST ALT Alkaline Phosphatase Total Protein Albumin Globulin Albumin/Globulin Ratio Urine Color Yellow Urine Clarity Sl. Cloudy Urine pH 5.0 Ur Specific [place] 1.025 Urine Protein 30 H Urine Glucose (UA) Normal Urine Ketones 5 H Urine Occult Blood 250 H Urine Nitrite Negative Urine Bilirubin 1 H Urine Urobilinogen 1 H Ur Leukocyte Esterase 100 H Urine RBC 25-50 SEEN Urine WBC 10-25 SEEN Ur Squamous Epith Cells 0-5 SEEN Urine Bacteria 0 SEEN Urine Mucus 2+ Radiography Diagnostic Testing: Clinical Impression(s) from Imaging Studies Chest X-Ray 02/27/22 12:25 IMPRESSION: Patchy infiltrate in the right upper and right lower lobes. Follow-up is recommended. Electronically Signed: Zackary Shi MD at 12:46 EST , Discharge Plan Triage Chief Complaint: Fever ED Provider: Nick Alcocer Dx/Rx/DC Orders Clinical Impression: Pneumonia, Adenocarcinoma of stomach Prescriptions: New levofloxacin 750 mg tablet 750 mg PO DAILY Qty: 7 0RF levofloxacin 750 mg tablet 750 mg PO DAILY Qty: 10 0RF No Action prednisone 10 mg tablet 10 mg PO DAILY Label Comments: TAKE 2 TABLETS BY MOUTH ONCE DAILY ondansetron HCl 4 mg tablet 4 mg PO Q8H PRN PRN (Reason: Nausea) Label Comments: TAKE 1 TABLET BY MOUTH EVERY 8 HOURS NEEDED FOR NAUSEA AND VOMITING temazepam [Restoril] 15 mg Capsule 15 mg PO QHS PRN (Reason: Sleep) pantoprazole [Protonix] 40 mg Tablet,Delayed Release (Dr/Ec) 40 mg PO BID calcium carbonate-vitamin D3 [Oyster Shell + D3] 250 mg-3.125 mcg (125 unit) Tablet 2 tab PO BID tamsulosin 0.4 mg capsule 4 mg PO QHS Label Comments: TAKE 1 CAPSULE BY MOUTH ONCE DAILY AT BEDTIME oxycodone-acetaminophen [Percocet] 5-325 mg tablet 1 tab PO Q4H PRN (Reason: pain) 5 Days Qty: 20 0RF Primary Care Provider: Cecelia Villasenor Referrals: Cecelia Villasenor DO [Primary Care Provider] - Juan Antonio Oakes DO [Med Staff - Active Staff] - 1 Week Activity Restrictions/Additional Instructions: No chemotherapy tomorrow. Contact Dr. Oakes in the future next week to see when your next dose should be. Disposition Disposition: Home, Self Care
[2022-02-27] MEDS: 0.9% Normal Saline 1,000 ML 999 ML IV ×2 (12:10→13:36)
[2022-02-27 12:15] LABS: Absolute Lymphocyte Count 0.67 X10^3/uL (0.83-4.51); Absolute Neutrophil Count 18.6 X10^3/uL (2.0-7.7); Basophil# 0.04 X10^3/uL; Basophil% 0.2 % (0-1); Hematocrit 32.3 % (40-54); Hemoglobin 10.3 g/dL (13.0-16.5); Lymphocyte # 0.67 X10^3/ul (0.83-4.51); Lymphocyte % 3.2 % (19-41); Mean Corp Hgb Conc 31.9 g/dL (32-36); Mean Corpuscular Hgb 29.3 pg (27.0-32.0); Mean Corpuscular Volume 91.8 fL (80-94); Mean Platelet Vol. 9.6 fl (6.2-12.0); Monocyte% 6.3 % (0-10); NRBC Flagged by Analyzer 0 % (0-5); Neutrophil # 18.64 X10^3/uL (2.7-7.7); Neutrophil % 89.6 % (47-70); Platelet Count 203 K/mm3 (150-450); RBC Distribution Width CV 14.4 % (11.6-14.6); RBC Distribution Width SD 47.8 fl (35.1-43.9); Red Blood Count 3.52 M/mm3 (4.6-6.2); White Blood Count 20.8 K/mm3 (4.4-11.0)
[2022-02-27 12:20] VITALS: BP 98/53; PULSE 70; RESP 19; TEMP 36.8; O2SAT 97
--- NOTE | 2022-02-27 12:25 | RAD_ITS ---
STUDY: X-RAY CHEST REASON FOR EXAM: Male, 81 years old. Fever TECHNIQUE: PA and lateral views of the chest. COMPARISON: Comparison is made with prior study dated 12/07/2021. FINDINGS: A right-sided portacatheter is seen with the tip at the junction of the superior vena cava and right atrium. EKG electrodes are seen. There now is evidence of patchy infiltrates in the right upper and right lower. Left lung is clear. There is no demonstrated pleural abnormality. Normal size heart. Normal mediastinum and darleen. Normal visualized pulmonary arteries. There is atherosclerotic calcification of the aortic arch with tortuosity. There are diffuse degenerative changes of the visualized thoracic spine. Normal visualized ribs, clavicles, and shoulders. There is no demonstrated abnormality of the visualized soft tissue structures of the upper abdomen. RAD/Chest PA and Lateral IMPRESSION: Patchy infiltrate in the right upper and right lower lobes. Follow-up is recommended. Electronically Signed: Zackary Shi MD at 12:46 EST ,
[2022-02-27 12:27] LABS: ALB/GLOB Ratio 1.2 RATIO (0.9-2.4); AST(SGOT) 13 U/L (15-37); Alanine Aminotransfer ALT/SGPT 18 U/L (16-61); Alkaline Phosphatase 54 U/L (45-117); Anion Gap 5 (5-15); BUN 20 mg/dL (7-18); BUN/Creat Ratio 18.9 RATIO (10-20); Calcium,Total 8.9 mg/dL (8.5-10.1); Chloride 107 mmol/L (98-107); Creatinine, Serum 1.06 mg/dL (0.70-1.30); EST Glomerular Filtration Rate 72 mL/min (>60); Est Glom Filt Rate - Afr Amer 87 mL/min (>60); Estimated Creatinine Clearance 60.18 ml/min; Globulin 2.6 g/dL (2.2-4.2); Glucose 171 mg/dL (74-106); Potassium 3.7 mmol/L (3.5-5.1); Protein, Total 5.6 g/dL (6.4-8.2); Sodium Level 139 mmol/L (136-145)
[2022-02-27 12:29] LABS: Bacteria 0 SEEN /hpf (None Seen)
[2022-02-27 12:36] LABS: Color, Urine Yellow (Yellow); Glucose, Dipstick Normal (Normal); Ketone-Dipstick 5 mg/dl (Negative); Leukocyte Esterase-Dipstick 100 /ul (Negative); Nitrite-Dipstick Negative (Negative); Occult Blood-Urine 250 /ul (Negative); Protein-Dipstick 30 mg/dl (Negative); Specific Gravity, Urine 1.025 (1.002-1.030); Urine Bilirubin Dipstick 1 mg/dL (Negative); Urine Clarity Sl. Cloudy (Clear); Urine Urobilinogen 1 mg/dl (Normal)
[2022-02-27 12:42] LABS: Mucous, Urine 2+ /hpf (<or=2+); Red Blood Cells-Urine 25-50 SEEN /hpf (0-5); Squamous Epithelial Cells - UA 0-5 SEEN /hpf (0-5); White Blood Cells 10-25 SEEN /hpf (0-5)
[2022-02-27 12:43] LABS: Lactic Acid 2.3 mmol/L (0.4-1.9)
--- NOTE | 2022-02-27 12:50 | ED.RN ---
CALLED PHARMACY ABOUT ZOSYN ORDER, STILL NOT IN ED
[2022-02-27 13:07] VITALS: BP 100/52; PULSE 64; RESP 18; TEMP 36.9; O2SAT 97
[2022-02-27 13:53] VITALS: BP 106/53; PULSE 65; RESP 19; TEMP 36.8; O2SAT 99
[2022-02-27 15:34] VITALS: BP 112/67; PULSE 68; PULSE 74; RESP 16; TEMP 36.8; O2SAT 98; O2SAT 99
[2022-02-27 16:07] LABS: Reflex Lactate? Y
== END 2022-02-27 15:38 | disposition home or self-care (01) ==
PROVIDERS: Emergency Provider Emergency Medicine; PCP Family Medicine; Visit Provider Emergency Medicine
DX: J18.9 Pneumonia, unspecified organism (principal); C16.9 Malignant neoplasm of stomach, unspecified; E11.9 Type 2 diabetes mellitus without complications; R50.81 Fever presenting with conditions classified elsewhere; Z87.891 Personal history of nicotine dependence; Z92.21 Personal history of antineoplastic chemotherapy
CPT/HCPCS: 36591; 71046; 80053; 81001; 83605; 85025; 87040; 87086; 87088; 87428; 87807; 96361; 96365; 99284; J7030; J7050; A4216

== ENCOUNTER 2022-04-18 22:32 | Inpatient (IN) | payer MEDICARE, OTHER, SELFPAY ==
[2022-04-18 22:33] VITALS: BP 182/91; PULSE 103; RESP 18; TEMP 36.8; O2SAT 100; BMI 25.7
[2022-04-18 23:28] LABS: Mucous, Urine 0 SEEN /hpf (<or=2+); Squamous Epithelial Cells - UA 0 SEEN /hpf (0-5)
[2022-04-18 23:37] LABS: Glucose, Dipstick NEGATIVE (Normal); Ketone-Dipstick Negative (Negative); Leukocyte Esterase-Dipstick 25 /ul (Negative); Protein-Dipstick 30 mg/dl (Negative); Urine Bilirubin Dipstick Negative (Negative); Urine Urobilinogen Normal (Normal)
[2022-04-18 23:38] LABS: Color, Urine Yellow (Yellow); Occult Blood-Urine 250 /ul (Negative); Urine Clarity Cloudy (Clear)
[2022-04-18 23:43] LABS: Bacteria 4+ /hpf (None Seen); Nitrite-Dipstick Positive (Negative); Red Blood Cells-Urine 25-50 SEEN /hpf (0-5); White Blood Cells 10-25 SEEN /hpf (0-5)
[2022-04-19] VITALS (9 sets, daily range): BP systolic 103–146; BP diastolic 44–63; PULSE 72–100; RESP 16–18; TEMP 36.9–39.5; O2SAT 94–98; BMI 26.5
--- NOTE | 2022-04-19 00:06 | CT_ITS ---
INDICATION: confusion EXAMINATION: CT BRAIN - CT Head or Brain W/O Contrast Injection TECHNIQUE: Multiple axial images were obtained of the head without intravenous contrast. A radiation dose optimization technique was used for this scan. IV Contrast dosage and agent: None. COMPARISON: None FINDINGS: BRAIN PARENCHYMA: No intra- or extra-axial hemorrhage. No evidence of acute infarct. No intracranial mass or mass effect. Posterior fossa structures are unremarkable. Volume loss with low attenuation of the periventricular white matter typical of chronic small vessel disease. CSF SPACES: Appropriate for age. No hydrocephalus. Basal cisterns are patent. CALVARIUM, SKULL BASE, PARANASAL SINUSES AND MASTOID AIR CELLS: Clear. No discrete lytic or blastic abnormalities. CT/Brain/Head without Contrast IMPRESSION: Volume loss with chronic white matter changes. No acute intracranial findings. Electronically Signed: Pb Orlando MD at 0:46 EST ,
[2022-04-19 00:30] LABS: Absolute Lymphocyte Count 1.88 X10^3/uL (0.83-4.51); Absolute Neutrophil Count 10.5 X10^3/uL (2.0-7.7); Basophil# 0.03 X10^3/uL; Basophil% 0.2 % (0-1); Eosinophil# 0.06 X10^3/uL; Eosinophils% 0.4 % (0-5); Hemoglobin 11.1 g/dL (13.0-16.5); Lymphocyte # 1.88 X10^3/ul (0.83-4.51); Lymphocyte % 14.1 % (19-41); Mean Corp Hgb Conc 31.7 g/dL (32-36); Mean Corpuscular Hgb 28.5 pg (27.0-32.0); Mean Platelet Vol. 9.3 fl (6.2-12.0); Monocyte# 0.72 X10^3/uL; Monocyte% 5.4 % (0-10); NRBC Flagged by Analyzer 0.1 % (0-5); Neutrophil # 10.47 X10^3/uL (2.7-7.7); Neutrophil % 78.6 % (47-70); Platelet Count 232 K/mm3 (150-450); RBC Distribution Width CV 14.8 % (11.6-14.6); Red Blood Count 3.89 M/mm3 (4.6-6.2); White Blood Count 13.3 K/mm3 (4.4-11.0)
[2022-04-19] MEDS: Ceftriaxone 1 GM/50 ML BAG IV ×2 (00:45→23:57)
[2022-04-19] MEDS: Acetaminophen 500 MG Tablet 1000 MG PO (00:51)
[2022-04-19 00:53] LABS: Lactic Acid 1.7 mmol/L (0.4-1.9)
[2022-04-19 01:00] LABS: Anion Gap 7 (5-15); BUN 20 mg/dL (7-18); BUN/Creat Ratio 17.5 RATIO (10-20); Calcium,Total 8.1 mg/dL (8.5-10.1); Chloride 107 mmol/L (98-107); Creatinine, Serum 1.14 mg/dL (0.70-1.30); EST Glomerular Filtration Rate 66 mL/min (>60); Est Glom Filt Rate - Afr Amer 80 mL/min (>60); Estimated Creatinine Clearance 55.96 ml/min; Glucose 115 mg/dL (74-106); Potassium 4.2 mmol/L (3.5-5.1); Sodium Level 141 mmol/L (136-145); Thyroid Stim Hormone (TSH) 3.66 uIU/mL (0.358-3.74)
--- NOTE | 2022-04-19 01:17 | HP.PCM.HOS_ITS ---
HPI - General General Date of Admission: 04/19/22 Date of Service: 04/19/22 Chief Complaint: Acute on chronic urinary retention, Confusion. HPI Narrative The patient is a 81 y/o M w/ PMHx: Polymyalgia rheumatica on chronic prednisone, GERD w/ Betancur's esophagus, BPH, Adenocarcinoma of the stomach s/p port placement 12/07/21 and initiation of chemotherapy at that time, Former tobacco use who presents to the [facility] ED on 04/19/22 with history of chronic urinary retention with neurogenic bladder requiring straight catheterization (TID since Friday); however, tonight he was only able to do so with progressively worsening urinary retention, pain and onset of confusion 42 hours prior to ED presentation per spouse with last chemotherapy per report approximately 1 week prior to current presentation prompting to bring him in for evaluation. Work-up in the ED included T98.2-->T max onset in the ED 103, heart rate 103, BP 182/91, respiratory rate 18, 100% on room air, urinalysis with specific remedy 1.020, protein 30, positive nitrite, leukocyte Estrace 25, urine RBC 25-50, urine WC is 10-25 with 4+ urine bacteria, urine culture pending per ED with no prior urine cultures upon review of past microbiology results with marked growth, CBC with WC 13.3, hemoglobin 11.1, platelet 232 with left shift, BMP not marked appearing aside BUN/Cr 20/1.14, glucose 115, Ca 8.1, ammonia 13, TSH 3.66, lactic acid 1.7, CT of the head with volume loss with chronic white matter changes with no acute intracranial findings, blood culture x 2 also pending per ED. In the ED patient ministered IV Rocephin, tylenol 1,[address] [facility] Medical History (Updated 04/19/22 @ 01:[address] Francisca Yan MD) Arthritis Betancur's esophagus without dysplasia Bilateral low back pain with sciatica Cancer Diabetes mellitus Difficulty swallowing Erectile dysfunction Former smoker Gastric reflux History of steroid therapy Polymyalgia rheumatica Wears dentures Wears hearing aid Home Medications ondansetron HCl 4 mg tablet 8 mg PO Q8H PRN PRN Nausea 12/06/21 [History Last Taken Unknown] pantoprazole 40 mg tablet,delayed release (Protonix) 40 mg PO BID GERD 12/06/21 [History Last Taken 12/07/21 07:00] prednisone 10 mg tablet 10 mg PO DAILY 12/06/21 [History Last Taken Unknown] tamsulosin 0.4 mg capsule 4 mg PO QHS urine flow 12/06/21 [History Last Taken Unknown] temazepam 15 mg capsule (Restoril) 15 mg PO QHS PRN Sleep 12/06/21 [History Last Taken Unknown] olanzapine 10 mg tablet (Zyprexa) 10 mg PO DAILY 04/19/22 [History Last Taken Unknown] Allergy/AdvReac Type Severity Reaction Status Date / Time No Known Allergies Allergy Verified 04/18/22 22:33 Family History Mother CVA (cerebral vascular accident) Cancer kidney other (Patient father in WWII, no medical history prior to this including HD, DM, CA.) Surgical History History of carpal tunnel release of both wrists History of esophagogastroduodenoscopy (EGD) Social History (Updated 04/19/22 @ 01:[address] Francisca Yan MD) household members: spouse Smoking Status: Former smoker Tobacco: How many years used: 25 how long ago did patient quit smokin, 0.5ppd second hand exposure: Yes ROS Review of Systems ROS Unobtainable: due to encephalopathy Vital Signs Vital Signs Vital Signs: 04/18/22 22:33 04/19/22 00:24 Temperature 98.2 F 103 F H Temperature Source Temporal Oral Pulse Rate 103 H Respiratory Rate 18 Blood Pressure 182/91 H Blood Pressure Mean 121 Pulse Ox 100 Oxygen Delivery Method Room Air Weight Weight: 185 lb Body Mass Index (BMI) 25.7 Physical Exam Narrative Physical Examination: General: Awakens to some stimuli, not markedly alert, unable to answer orientation questions, significantly encephalopathic, not following commands currently, seated upright in ED bed, ill-appearing. Skin: Normal color, normal turgor, no icterus, no cyanosis except occasional staged ecchymoses. HEENT: AT/NC, EOM unable to be assessed well given encephalopathy, PERRLA, dry MM, no carotid bruits or JVD noted, frequent throat clearing during evaluation which is chronic for patient. Lungs: Diminished, greater bases, no obvious evidence of any distress, no rales, ronchi or wheezing. Heart: Currently regular rate and rhythm; no gallop, rub audible. Abdomen: Soft, overweight, NTTP, not markedly distended, mildly tympanitic, mildly hyperactive BS, no HSM. Extremities: No cyanosis, clubbing, or edema. Neurological: Awakens to some stimuli, not markedly alert, unable to answer orientation questions, significantly encephalopathic, not following commands currently, seated upright in ED bed, ill-appearing, cognitive function not baseline intact; pupils equally reactive to light and accommodation, cranial nerves difficult to assess given encephalopathy but appear grossly normal, moving all 4 extremities, strength severely global decrease secondary to acute presentation. Psychiatric: Affect appears flat, ill-appearing, no acute evidence of depressive or anxiety feelings. Results Lab / Micro Data Result Diagrams: 04/19/22 00:20 04/19/22 00:20 Labs: Laboratory Results - last 24 hr 04/18/22 23:25: Urine Color Yellow, Urine Clarity Cloudy, Urine pH 5.0, Ur Specific [place] 1.020, Urine Protein 30 H, Urine Glucose (UA) NEGATIVE, Urine Ketones Negative, Urine Occult Blood 250, Urine Nitrite Positive H, Urine Bilirubin Negative, Urine Urobilinogen Normal, Ur Leukocyte Esterase 25 H, Urine RBC 25-50 SEEN, Urine WBC 10-25 SEEN, Ur Squamous Epith Cells 0 SEEN, Urine Bacteria 4+, Urine Mucus 0 SEEN 04/19/22 00:20: WBC 13.3 H, RBC 3.89 L, Hgb 11.1 L, Hct 35.0 L, MCV 90.0, MCH 28.5, MCHC 31.7 L, RDW Std Deviation 48.0 H, RDW Coeff of Nancy 14.8 H, Plt Count 232, MPV 9.3, Immature Gran % (Auto) 1.300 H, Neut % (Auto) 78.6 H, Lymph % (Auto) 14.1 L, [place] % (Auto) 5.4, Eos % (Auto) 0.4, Baso % (Auto) 0.2, Absolute Neuts (auto) 10.5 H, Absolute Lymphs (auto) 1.88, Nucleated RBC % 0.1 04/19/22 00:20: Sodium 141, Potassium 4.2, Chloride 107, Carbon Dioxide 27.0, Anion Gap 7, BUN 20 H, Creatinine 1.14, Estim Creat Clear Calc 55.96, Est GFR (MDRD) Af Amer 80, Est GFR (MDRD) Non-Af 66, BUN/Creatinine Ratio 17.5, Glucose 115 H, Calcium 8.1 L, TSH 3.66 04/19/22 00:20: Ammonia 13.0 04/19/22 00:20: Lactic Acid 1.[address] 04/19/22 00:06 IMPRESSION: Volume loss with chronic white matter changes. No acute intracranial findings. Electronically Signed: Pb Orlando MD at 0:46 EST , Assessment & Plan Assessment/Plan (1) Urinary retention: (2) Complicated UTI (urinary tract infection): (3) Acute encephalopathy: PLAN: Plan The patient is a 81 y/o M w/ PMHx: Polymyalgia rheumatica on chronic prednisone, GERD w/ Betancur's esophagus, BPH, Adenocarcinoma of the stomach s/p port placement 12/07/21 and initiation of chemotherapy at that time, Former tobacco use who presents to the [facility] ED on 04/19/22 with history of chronic urinary retention with neurogenic bladder requiring straight catheterization however tonight he was only able to do so with progressively worsening urinary retention, pain and onset of confusion 42 hours prior to ED presentation per spouse with last chemotherapy per report approximately 1 week prior to current presentation prompting to bring him in for evaluation. #1. Acute infectious encephalopathy secondary to acute urinary retention with associated acute complicated urinary tract infection with underlying history of neurogenic bladder with self-catheterization: We will admit to medical surgical floor, will maintain Ortiz catheter in place given recent history with de- escalation as able to self-catheterization once infection treated and urinary retention has abated, UA upon ED evaluation remarkable, pending UCx, will contin ue IVFs, monitor I/Os, continue IV Rocephin w/ transition as able pending sensitivities and speciation. PT/OT/case management consultation for discharge planning. #2. Adenocarcinoma of the stomach: Patient following with [facility], status post port placement following diagnosis 12/07/2021 with initiation of chemotherapy at that time, last chemotherapy approximately 1 week prior to current presentation, encourage continued outpatient follow-up with oncology, magnesium and phosphorus levels requested with supplementation if appropriate. #3. Anxiety and depression/chronic insomnia: We will continue patient home olanzapine and temazepam regimen. From review of prior medication list patient had in the past utilized Ativan as needed for anxiety. #4. Chronic anemia, associate with ongoing chemotherapy: Admission hemoglobin 11.1, baseline hemoglobin noted prior 02/28/2020 to 10.3, will continue to trend. #5. Polymyalgia rheumatica: Given history will continue low-dose steroids to avoid relapse. #6. BPH: We will continue patient on Flomax and finasteride regimen. #7. GERD with history of Betancur's esophagus: We will continue patient on PPI. #8. Former tobacco use: Encourage continued tobacco cessation. #9. DVT prophylaxis: SCDs, lovenox. #10. CODE status: Patient HCPOA is the patient's who is present and living will is currently in place. Discussed CODE status at length including difference between FULL code, DNR-CCA and DNR-CC status. Following discussions about the differences in these status, requested DNR-CCA, no intubation, no aggressive interventions. Advanced Care Planning Face to Face Time: 16 minutes. Admission Evaluation Time spent evaluating chart, patient history, patient evaluation, care planning and discussion with specialists: 75 minutes. Charges/Coding Visit Charges Inpatient E&M: 09212 Init Hosp L3 Procedures Hospitalists Procedures: 97651 Advncd Care Plan 30 Min
[2022-04-19 01:36] LABS: Magnesium 1.4 mg/dL (1.6-2.6); Phosphorus 2.5 mg/dL (2.5-4.9)
--- NOTE | 2022-04-19 01:40 | EDS_ITS ---
HPI History of Present Illness Chief Complaint: Complaint Narrative Narrative: Patient is a 81-year-old male with past medical history of polymyalgia rheumatica diabetes and adenocarcinoma of the stomach. He has been doing chemotherapy now for approximately 6 rounds. Patient and report in the past week he has been unable to urinate on his own and so she has been performing self catheterizations on him 3 times a day which she states she started doing on Friday. Today she had difficulty getting the catheter in this evening and then noted that the patient was having confusion. She states that he has had chemo brain before but this is different than those episodes and s econdary to his inability urinate and the change in mental status he was brought in for evaluation. [facility] Medical History (Updated 04/19/22 @ 01:[address] Sylvain Goodwin DO) Arthritis Betancur's esophagus without dysplasia Bilateral low back pain with sciatica Cancer Diabetes mellitus Difficulty swallowing Erectile dysfunction Former smoker Gastric reflux History of steroid therapy Polymyalgia rheumatica Wears dentures Wears hearing aid Home Medications ondansetron HCl 4 mg tablet 8 mg PO Q8H PRN PRN Nausea 12/06/21 [History Last Taken Unknown] pantoprazole 40 mg tablet,delayed release (Protonix) 40 mg PO BID GERD 12/06/21 [History Last Taken 12/07/21 07:00] prednisone 10 mg tablet 10 mg PO DAILY 12/06/21 [History Last Taken Unknown] tamsulosin 0.4 mg capsule 4 mg PO QHS urine flow 12/06/21 [History Last Taken Unknown] temazepam 15 mg capsule (Restoril) 15 mg PO QHS PRN Sleep 12/06/21 [History Last Taken Unknown] olanzapine 10 mg tablet (Zyprexa) 10 mg PO DAILY 04/19/22 [History Last Taken Unknown] Allergy/AdvReac Type Severity Reaction Status Date / Time No Known Allergies Allergy Verified 04/18/22 22:33 Family History Mother CVA (cerebral vascular accident) Cancer kidney Surgical History History of carpal tunnel release of both wrists History of esophagogastroduodenoscopy (EGD) Social History (Updated 04/19/22 @ 01:[address] Francisca Yan MD) household members: spouse Smoking Status: Former smoker Tobacco: How many years used: 25 how long ago did patient quit smokin, 0.5ppd second hand exposure: Yes ROS ROS ED ROS Narrative Please note review of systems may be unreliable as patient has confusion Constitutional Constitutional ED: Denies chills or fever(s) ENT ENT ED: Denies sore throat Cardiovascular Cardiovascular: Denies chest pain Respiratory/Chest Respiratory/Chest: Denies cough or dyspnea Gastrointestinal Gastrointestinal: Reports abdominal pain; Denies diarrhea, nausea or vomiting Genitourinary Genitourinary ED: Reports other Details: Positive urinary retention ; Denies dysuria Musculoskeletal Musculoskeletal: Denies myalgias Integumentary Denies rash Neurologic Neurologic: Denies headache(s) Hematologic/Lymphatic Hematologic/Lymphatic: Denies easy bleeding or easy bruising EXAM Physical Exam Const Vital Signs: 04/18/22 22:33 04/19/22 00:24 Temperature 98.2 F 103 F H Temperature Source Temporal Oral Pulse Rate 103 H Respiratory Rate 18 Blood Pressure 182/91 H Blood Pressure Mean 121 Pulse Ox 100 Oxygen Delivery Method Room Air Positive well nourished and well developed General Appearance ED: well developed HEENT Reports dry mucous membranes Mouth ED: Yes dry mucous membranes Mouth: dry mucous membranes Eyes PERRL and EOMs intact bilaterally Neck supple Neck Narrative: No nuchal rigidity or meningeal signs noted Resp normal respiratory effort and clear to auscultation bilaterally Cardio regular rate and regular rhythm Rate: other Other Details: Radial pulses are +2-4 bilaterally are equal and symmetric GI GI Narrative: Abdomen is distended with organomegaly in the lower mid abdomen consistent with a distended bladder. The area of the abdomen above this is soft and nontender and bowel sounds are normoactive. No pulsatile mass or fluid wave noted. Auscultation: normoactive bowel sounds Palpation: soft Narrative: No blood or discharge noted from the urethral meatus no secondary soft tissue changes to suggest Leticia's gangrene Extremity normal to inspection Neuro oriented x3 and CN's II-XII intact bilaterally Neuro Narrative: Patient is awake alert and oriented to person place and time. However he has difficulty following simple commands such as [id number] or sticking out his tongue and events such as trying to sit on the bedside toilet are difficult for him to perform. However his stroke scale score remains 0 as he technically is awake alert and oriented person place and time without obvious focal neurologic deficit Sensorium / Orientation: alert Psych Psych Narrative: Patient has a depressed/flat affect Skin no rashes or lesions noted MDM MDM MDM Narrative Medical decision making narrative: Patient presented to the ER hypertensive but afebrile. His exam is consistent with acute urinary retention and therefore Ortiz catheter was placed. Initially because of the mild confusion a urine sample was obtained which did show changes consistent with infection. On reevaluation the patient's mental status seems to be declining more than when upon arrival and repeat vitals now show his temperature is elevated. Secondary to the worsening mental status and now fever and history of chemo there is concern for neutropenic fever as well as possible metastatic cancer leading to brain tumor so a CT of the head was obtained along with blood work. CT showed no acute findings and labs revealed no clinically significant findings such as elevated lactic acid value acute kidney injury or severe electrolyte derangement. Patient was started on Rocephin secondary to UTI and with his immunosuppression and now development of fever as well as worse megan mental status he will be admitted to the hospital for further care. The case was discussed with the patient and his who agreed to hospitalization for treatment and therefore medicine was contacted and will accept the patient for further care Lab Data Attestation: I reviewed the patient's lab results. Labs: Laboratory Results - last 24 hr 04/18/22 04/19/22 04/19/22 23:25 00:20 00:20 WBC 13.3 H RBC 3.89 L Hgb 11.1 L Hct 35.0 L MCV 90.0 MCH 28.5 MCHC 31.7 L RDW Std Deviation 48.0 H RDW Coeff of Nancy 14.8 H Plt Count 232 MPV 9.3 Immature Gran % (Auto) 1.300 H Neut % (Auto) 78.6 H Lymph % (Auto) 14.1 L [place] % (Auto) 5.4 Eos % (Auto) 0.4 Baso % (Auto) 0.2 Absolute Neuts (auto) 10.5 H Absolute Lymphs (auto) 1.88 Nucleated RBC % 0.1 Sodium 141 Potassium 4.2 Chloride 107 Carbon Dioxide 27.0 Anion Gap 7 BUN 20 H Creatinine 1.14 Estim Creat Clear Calc 55.96 Est GFR (MDRD) Af Amer 80 Est GFR (MDRD) Non-Af 66 BUN/Creatinine Ratio 17.5 Glucose 115 H Lactic Acid Calcium 8.1 L Phosphorus Magnesium Ammonia TSH 3.66 Urine Color Yellow Urine Clarity Cloudy Urine pH 5.0 Ur Specific [place] 1.020 Urine Protein 30 H Urine Glucose (UA) NEGATIVE Urine Ketones Negative Urine Occult Blood 250 Urine Nitrite Positive H Urine Bilirubin Negative Urine Urobilinogen Normal Ur Leukocyte Esterase 25 H Urine RBC 25-50 SEEN Urine WBC 10-25 SEEN Ur Squamous Epith Cells 0 SEEN Urine Bacteria 4+ Urine Mucus 0 SEEN 04/19/22 04/19/22 04/19/22 00:20 00:20 00:20 WBC RBC Hgb Hct MCV MCH MCHC RDW Std Deviation RDW Coeff of Nancy Plt Count MPV Immature Gran % (Auto) Neut % (Auto) Lymph % (Auto) [place] % (Auto) Eos % (Auto) Baso % (Auto) Absolute Neuts (auto) Absolute Lymphs (auto) Nucleated RBC % Sodium Potassium Chloride Carbon Dioxide Anion Gap BUN Creatinine Estim Creat Clear Calc Est GFR (MDRD) Af Amer Est GFR (MDRD) Non-Af BUN/Creatinine Ratio Glucose Lactic Acid 1.7 Calcium Phosphorus 2.5 Magnesium 1.4 L Ammonia 13.0 TSH Urine Color Urine Clarity Urine pH Ur Specific [place] Urine Protein Urine Glucose (UA) Urine Ketones Urine Occult Blood Urine Nitrite Urine Bilirubin Urine Urobilinogen Ur Leukocyte Esterase Urine RBC Urine WBC Ur Squamous Epith Cells Urine Bacteria Urine Mucus Radiography Diagnostic Testing: Clinical Impression(s) from Imaging Studies Brain CT 04/19/22 00:06 IMPRESSION: Volume loss with chronic white matter changes. No acute intracranial findings. Electronically Signed: Pb Orlando MD at 0:46 EST , Discharge Plan Triage Chief Complaint: Complaint Other Complaint: Confusion ED Provider: Sylvain Goodwin Dx/Rx/DC Orders Clinical Impression: Urinary tract infection, Diabetes mellitus, Adenocarcinoma of stomach, Acute metabolic encephalopathy, Acute urinary retention Primary Care Provider: Cecelia Villasenor Disposition Disposition: [facility] Care [facility]
[2022-04-19] MEDS: 0.9% Normal Saline 1,000 ML 100 ML IV (03:11)
[2022-04-19 06:10] LABS: Absolute Lymphocyte Count 2.48 X10^3/uL (0.83-4.51); Absolute Neutrophil Count 9.5 X10^3/uL (2.0-7.7); Basophil# 0.03 X10^3/uL; Basophil% 0.2 % (0-1); Eosinophil# 0.05 X10^3/uL; Eosinophils% 0.4 % (0-5); Hematocrit 31.9 % (40-54); Hemoglobin 10.1 g/dL (13.0-16.5); Lymphocyte # 2.48 X10^3/ul (0.83-4.51); Lymphocyte % 18.7 % (19-41); Mean Corp Hgb Conc 31.7 g/dL (32-36); Mean Corpuscular Hgb 28.7 pg (27.0-32.0); Mean Corpuscular Volume 90.6 fL (80-94); Mean Platelet Vol. 9.8 fl (6.2-12.0); Monocyte# 1.04 X10^3/uL; Monocyte% 7.9 % (0-10); NRBC Flagged by Analyzer 0 % (0-5); Neutrophil # 9.47 X10^3/uL (2.7-7.7); Neutrophil % 71.6 % (47-70); Platelet Count 221 K/mm3 (150-450); RBC Distribution Width CV 15.1 % (11.6-14.6); Red Blood Count 3.52 M/mm3 (4.6-6.2); White Blood Count 13.2 K/mm3 (4.4-11.0)
[2022-04-19 06:35] LABS: ALB/GLOB Ratio 1.3 RATIO (0.9-2.4); AST(SGOT) 13 U/L (15-37); Alanine Aminotransfer ALT/SGPT 16 U/L (16-61); Albumin, Serum 2.7 g/dL (3.2-5.0); Alkaline Phosphatase 60 U/L (45-117); Anion Gap 7 (5-15); BUN 21 mg/dL (7-18); BUN/Creat Ratio 20.8 RATIO (10-20); Calcium,Total 7.6 mg/dL (8.5-10.1); Chloride 107 mmol/L (98-107); Creatinine, Serum 1.01 mg/dL (0.70-1.30); EST Glomerular Filtration Rate 76 mL/min (>60); Est Glom Filt Rate - Afr Amer 92 mL/min (>60); Estimated Creatinine Clearance 63.16 ml/min; Globulin 2.1 g/dL (2.2-4.2); Glucose 101 mg/dL (74-106); Potassium 3.6 mmol/L (3.5-5.1); Protein, Total 4.8 g/dL (6.4-8.2); Sodium Level 140 mmol/L (136-145)
[2022-04-19] MEDS: Menthol/Lanolin/Calamine/Znox 113 GM Tube 1 APPLIC TOPICAL ×2 (08:42→23:51)
[2022-04-19] MEDS: Pantoprazole Sodium 40 MG Tablet PO (08:42)
[2022-04-19] MEDS: predniSONE 10 MG Tablet PO (08:42)
[2022-04-19] MEDS: Enoxaparin 40 MG/0.4 ML Syringe SC (08:43)
--- NOTE | 2022-04-19 09:17 | PCM.PN.HOSP ---
Subjective Subjective Patient is a 81-year-old gentleman admitted with altered mental status. Diagnosed with acute cystitis please on a monitored bed for further management Objective Data Objective Data Vital Signs: Vital Signs Temp Pulse Resp BP Pulse Ox O2 Del Method 100 F H 82 18 125/55 H 95 Room Air 04/19/22 02:50 04/19/22 02:50 04/19/22 02:50 04/19/22 02:50 04/19/22 06:58 04/19/22 06:58 Oxygen Delivery Method Room Air Weight: 86.4 kg Body Mass Index (BMI) 26.5 Intake & Output: Intake and Output for Last 24 Hours 04/17/22 04/18/22 04/19/22 23:59 23:59 23:59 Intake Total 50 / 50 Output Total 1150 / 1150 Balance -1100 / -1100 Lab / Micro Data Result Diagrams: 04/19/22 04:54 04/19/22 04:54 Labs: Laboratory Results - last 24 hr 04/18/22 23:25: Urine Color Yellow, Urine Clarity Cloudy, Urine pH 5.0, Ur Specific Leon 1.020, Urine Protein 30 H, Urine Glucose (UA) NEGATIVE, Urine Ketones Negative, Urine Occult Blood 250, Urine Nitrite Positive H, Urine Bilirubin Negative, Urine Urobilinogen Normal, Ur Leukocyte Esterase 25 H, Urine RBC 25-50 SEEN, Urine WBC 10-25 SEEN, Ur Squamous Epith Cells 0 SEEN, Urine Bacteria 4+, Urine Mucus 0 SEEN 04/19/22 00:20: WBC 13.3 H, RBC 3.89 L, Hgb 11.1 L, Hct 35.0 L, MCV 90.0, MCH 28.5, MCHC 31.7 L, RDW Std Deviation 48.0 H, RDW Coeff of Nancy 14.8 H, Plt Count 232, MPV 9.3, Immature Gran % (Auto) 1.300 H, Neut % (Auto) 78.6 H, Lymph % (Auto) 14.1 L, [place] % (Auto) 5.4, Eos % (Auto) 0.4, Baso % (Auto) 0.2, Absolute Neuts (auto) 10.5 H, Absolute Lymphs (auto) 1.88, Nucleated RBC % 0.1 04/19/22 00:20: Sodium 141, Potassium 4.2, Chloride 107, Carbon Dioxide 27.0, Anion Gap 7, BUN 20 H, Creatinine 1.14, Estim Creat Clear Calc 55.96, Est GFR (MDRD) Af Amer 80, Est GFR (MDRD) Non-Af 66, BUN/Creatinine Ratio 17.5, Glucose 115 H, Calcium 8.1 L, TSH 3.66 04/19/22 00:20: Ammonia 13.0 04/19/22 00:20: Lactic Acid 1.7 04/19/22 00:20: Phosphorus 2.5, Magnesium 1.4 L 04/19/22 04:54: WBC 13.2 H, RBC 3.52 L, Hgb 10.1 L, Hct 31.9 L, MCV 90.6, MCH 28.7, MCHC 31.7 L, RDW Std Deviation 49.0 H, RDW Coeff of Nancy 15.1 H, Plt Count 221, MPV 9.8, Immature Gran % (Auto) 1.200 H, Neut % (Auto) 71.6 H, Lymph % (Auto) 18.7 L, [place] % (Auto) 7.9, Eos % (Auto) 0.4, Baso % (Auto) 0.2, Absolute Neuts (auto) 9.5 H, Absolute Lymphs (auto) 2.48, Nucleated RBC % 0 04/19/22 04:54: Sodium 140, Potassium 3.6, Chloride 107, Carbon Dioxide 26.0, Anion Gap 7, BUN 21 H, Creatinine 1.01, Estim Creat Clear Calc 63.16, Est GFR (MDRD) Af Amer 92, Est GFR (MDRD) Non-Af 76, BUN/Creatinine Ratio 20.8 H, Glucose 101, Calcium 7.6 L, Total Bilirubin 0.30, AST 13 L, ALT 16, Alkaline Phosphatase 60, Total Protein 4.8 L, Albumin 2.7 L, Globulin 2.1 L, Albumin/Globulin Ratio 1.3 Radiography Diagnostic Testing: Radiology Impression Brain CT 04/19/22 00:06 IMPRESSION: Volume loss with chronic white matter changes. No acute intracranial findings. Electronically Signed: Pb Orlando MD at 0:46 EST , Physical Exam Narrative GENERAL: cooperative HEENT: Atraumatic; normocephalic EYES; Anicteric, Normal Conjunctiva NECK; supple, normal thyroid, RESPIRATORY: Diminished to auscultation CARDIOVASCULAR: Regular S1 S2, GI: soft, normoactive bowel sounds, : No Renal angle tenderness; EXTREMITIES: No edema, no clubbing, MUSCULOSKELETAL: no muscle wasting NEURO: Awake; no lateralizing signs. SKIN: No Rash PSYCH; Flat affect Assessment & Plan Assessment/Plan (1) Urinary retention: (2) Complicated UTI (urinary tract infection): (3) Acute encephalopathy: PLAN: Plan Patient is a 81-year-old gentleman admitted with altered mental status. Diagnosed with acute cystitis please on a monitored bed for further management 1. Acute metabolic encephalopathy ? Secondary to acute cystitis admitted to a monitored bed with treatment of the underlying condition 2. Acute cystitis Psych secondary to self-catheterization. Patient apparently went into urinary retention prior to being admitted. Urine culture sent patient started on broad-spectrum antibiotic therapy with Rocephin 3. Adenocarcinoma of the stomach ? Currently undergoing chemotherapy at the [facility] last chemo was a week prior to his admission 4. Anemia - Secondary to chronic disorder monitoring H&H and transfuse if patient becomes symptomatic or hemoglobin falls below 7 5. Polymyalgia rheumatica ? Patient is on low-dose prednisone did continue 6. BPH ? Patient is on tamsulosin as well as finasteride did continue 7. GERD with complications including Betancur's esophagus ? Patient is on PPI did continue 8.Chronic back pain ? With history of lumbar degenerative joint disease 9. Diabetes mellitus type 2 ? Per history managed with diet 10. DVT prophylaxis ? SC Lovenox Time spent in the patient's overall evaluation,decision-making process, review of diagnostic data, adjustment of management, discussion with other providers, nursing nursing and ancillary staff involved in patient's care documentation, as well as discussion with patient's family?; 55 Minutes Charges/Coding Visit Charges Inpatient E&M: 10762 [facility] Hosp L3
--- NOTE | 2022-04-19 12:15 | CASEMGMT ---
RN?CM?PANEL EDGE SEALER?CM?to room to meet with patient and for initial transition planning/care coordination?assessment.?RN?CM?introduced self and role at [facility].? Pt resting in bed. Initially pt was awake, but then he fell asleep shortly after assess started. answere all of the following questions.? Care providers, pharmacy, and demographics verified/updated at this time. PCP: Cecelia Villasenor Specialists: Dr Oakes-oncology, RENE Pittman, -urology/Megha Preferred Pharmacy: [facility] Insurance: [facility] Prescription Benefit:?Yes Living Will/HPOA:?Has both LW and HCPOA, who is his , Kristyn LNOK: , Kristyn. Son, Jose. 2 other children. Living Arrangements: Lives w/ in bi-level home. FFSU, but does have 12-14 steps to enter. Independent w/ADL's and IADL's @ baseline. Does not use AD to ambulate. Pt straight caths himself @ home. Supplies are delivered to the home and they have all the supplies needed. Transportation:?Pt and both drive. DME: Has grab bars in shower. Uses no AD to ambulate. HHC/SNF: No hx SNF. Had [facility] in the past when he had J-tube. states they do want wish for pt to go to a SNF, stating, We wouldn't do that. She states they have a great support system. She is a retired nurse and son, Jose, is a [employer]. They also have grandchildren that can assist, if needed. She stated initially they may be interested in HHC for nurse for straight cathing. QUINTON REA informed her that SN would mostly come weekly and therapy would be 2-3 x's/week. She states then that she is hoping pt will return close to his baseline and if so, does not think pt will need HHC. She states if he did need therapy, she thinks she would be able to take him to OP therapy, but she is not sure if he will even need that. She is aware PT/OT evals are pending. QUINTON REA informed her, if HHC is desired, it cannot be set up over the w/e and if pt discharges home over the weekend and she decides, once he returns home, they would like HHC, to contact PCP. She voices understanding. PLAN:??Home. Follow PT/OT evals. Possible HHC vs OP therapy. Juanpablo JENNINGSN?RN?CM
[2022-04-19] MEDS: guaiFENesin/Codeine 5 ML UDC 10 ML PO (17:18)
--- NOTE | 2022-04-19 19:00 | NURSING ---
emergency documentation effective since 04/19/2022, 1900
[2022-04-20 03:45] VITALS: BP 113/50; PULSE 73; RESP 20; TEMP 37.6; O2SAT 95
[2022-04-20 03:47] VITALS: RESP 20
--- NOTE | 2022-04-20 05:55 | RAD_ITS ---
STUDY: X-RAY CHEST REASON FOR EXAM: Male, 81 years old. Dyspnea TECHNIQUE: Single AP portable view of the chest. COMPARISON: February 27, 2022 chest x-ray FINDINGS: There is a right-sided portacatheter tip is in the superior vena cava. Interstitial markings are mildly prominent in the right lung base probably similar to the prior study. There is no demonstrated pleural abnormality. Normal size heart. Normal mediastinum and darleen. Normal visualized pulmonary arteries. Normal visualized aortic arch and descending thoracic aorta. There are diffuse degenerative changes of the visualized thoracic spine. Normal visualized ribs, clavicles, and shoulders. There is no demonstrated abnormality of the visualized soft tissue structures of the upper abdomen. RAD/Chest 1 View (Portable) IMPRESSION: Relatively stable lung markings. Findings suggest minimal atelectasis and/or fibrotic change versus scarring. Right-sided Port-A-Cath tip in the superior vena cava. Electronically Signed: Davina Chavez MD at 7:40 EST ,
[2022-04-20 07:07] LABS: Absolute Lymphocyte Count 1.86 X10^3/uL (0.83-4.51); Absolute Neutrophil Count 14.4 X10^3/uL (2.0-7.7); Basophil# 0.04 X10^3/uL; Basophil% 0.2 % (0-1); Eosinophil# 0.09 X10^3/uL; Eosinophils% 0.5 % (0-5); Hematocrit 33.6 % (40-54); Hemoglobin 10.6 g/dL (13.0-16.5); Lymphocyte # 1.86 X10^3/ul (0.83-4.51); Lymphocyte % 10.6 % (19-41); Mean Corp Hgb Conc 31.5 g/dL (32-36); Mean Corpuscular Hgb 28.6 pg (27.0-32.0); Mean Corpuscular Volume 90.6 fL (80-94); Mean Platelet Vol. 9.8 fl (6.2-12.0); Monocyte% 6.2 % (0-10); NRBC Flagged by Analyzer 0 % (0-5); Neutrophil # 14.42 X10^3/uL (2.7-7.7); Neutrophil % 81.9 % (47-70); Platelet Count 191 K/mm3 (150-450); RBC Distribution Width SD 49.4 fl (35.1-43.9); Red Blood Count 3.71 M/mm3 (4.6-6.2); White Blood Count 17.6 K/mm3 (4.4-11.0)
[2022-04-20 07:31] VITALS: O2SAT 98
[2022-04-20 07:47] LABS: AST(SGOT) 11 U/L (15-37); Alanine Aminotransfer ALT/SGPT 16 U/L (16-61); Albumin, Serum 2.7 g/dL (3.2-5.0); Alkaline Phosphatase 51 U/L (45-117); Anion Gap 9 (5-15); BUN 19 mg/dL (7-18); Bilirubin, Direct 0.15 mg/dL (0.00-0.30); Calcium,Total 8.4 mg/dL (8.5-10.1); Chloride 106 mmol/L (98-107); EST Glomerular Filtration Rate 77 mL/min (>60); Est Glom Filt Rate - Afr Amer 93 mL/min (>60); Globulin 3.1 g/dL (2.2-4.2); Glucose 115 mg/dL (74-106); Magnesium 1.9 mg/dL (1.6-2.6); Phosphorus 3.8 mg/dL (2.5-4.9); Protein, Total 5.8 g/dL (6.4-8.2); Sodium Level 140 mmol/L (136-145)
--- NOTE | 2022-04-20 08:50 | PN.HOSP_ITS ---
Subjective Subjective Patient continues to spike fever with temperature maximum over the past 24 hours being 103.1. Objective Data Objective Data Vital Signs: Vital Signs Temp Pulse Resp BP Pulse Ox O2 Del Method 99.7 F H 73 20 H 113/50 L 98 Room Air 04/20/22 03:45 04/20/22 03:45 04/20/22 03:47 04/20/22 03:45 04/20/22 07:31 04/20/22 07:31 Oxygen Delivery Method Room Air Weight: 87.3 kg Body Mass Index (BMI) 26.5 Intake & Output: Intake and Output for Last 24 Hours 04/18/22 04/19/22 04/20/22 23:59 23:59 23:59 Intake Total 1490 / 1490 50 / 50 Output Total 2700 / 2700 250 / 250 Balance -1210 / -1210 -200 / -200 Lab / Micro Data Result Diagrams: 04/20/22 06:23 04/20/22 06:23 Labs: Laboratory Results - last 24 hr 04/20/22 06:23: WBC 17.6 H, RBC 3.71 L, Hgb 10.6 L, Hct 33.6 L, MCV 90.6, MCH 28.6, MCHC 31.5 L, RDW Std Deviation 49.4 H, RDW Coeff of Nancy 15.0 H, Plt Count 191, MPV 9.8, Immature Gran % (Auto) 0.600, Neut % (Auto) 81.9 H, Lymph % (Auto) 10.6 L, [place] % (Auto) 6.2, Eos % (Auto) 0.5, Baso % (Auto) 0.2, Absolute Neuts (auto) 14.4 H, Absolute Lymphs (auto) 1.86, Nucleated RBC % 0 04/20/22 06:23: Sodium 140, Potassium 4.0, Chloride 106, Carbon Dioxide 25.0, Anion Gap 9, BUN 19 H, Creatinine 1.00, Estim Creat Clear Calc 63.80, Est GFR (M DRD) Af Amer 93, Est GFR (MDRD) Non-Af 77, BUN/Creatinine Ratio 19.0, Glucose 115 H, Calcium 8.4 L, Phosphorus 3.8, Magnesium 1.9, Total Bilirubin 0.80, D irect Bilirubin 0.15, AST 11 L, ALT 16, Alkaline Phosphatase 51, Total Protein 5.8 L, Albumin 2.7 L, Globulin 3.1 Radiography Diagnostic Testing: Radiology Impression Chest X-Ray 04/20/22 05:55 IMPRESSION: Relatively stable lung markings. Findings suggest minimal atelectasis and/or fibrotic change versus scarring. Right-sided Port-A-Cath tip in the superior vena cava. Electronically Signed: Davina Chavez MD at 7:40 EST , Physical Exam Narrative GENERAL: cooperative HEENT: Atraumatic; normocephalic EYES; Anicteric, Normal Conjunctiva NECK; supple, normal thyroid, RESPIRATORY: Diminished to auscultation CARDIOVASCULAR: Regular S1 S2, GI: soft, normoactive bowel sounds, : No Renal angle tenderness; EXTREMITIES: No edema, no clubbing, MUSCULOSKELETAL: no muscle wasting NEURO: Awake; no lateralizing signs. SKIN: No Rash PSYCH; Flat affect Assessment & Plan Assessment/Plan (1) Urinary retention: (2) Complicated UTI (urinary tract infection): (3) Acute encephalopathy: PLAN: Plan Patient is a 81-year-old gentleman admitted with altered mental status. Sophy gnosed with acute cystitis please on a monitored bed for further management 1. Acute metabolic encephalopathy ? Secondary to acute cystitis admitted to a monitored bed with treatment of the underlying condition 2. Acute cystitis Psych secondary to self-catheterization. Patient apparently went into urinary retention prior to being admitted. Urine culture sent patient started on broad-spectrum antibiotic therapy with Rocephin -04/20/2022; Patient continues to spike fever with temperature maximum over the past 24 hours being 103.1. 3. Adenocarcinoma of the stomach ? Currently undergoing chemotherapy at the [facility] last chemo was a week prior to his admission 4. Anemia - Secondary to chronic disorder monitoring H&H and transfuse if patient becomes symptomatic or hemoglobin falls below 7 5. Polymyalgia rheumatica ? Patient is on low-dose prednisone did continue 6. BPH ? Patient is on tamsulosin as well as finasteride did continue 7. GERD with complications including Betancur's esophagus ? Patient is on PPI did continue 8.Chronic back pain ? With history of lumbar degenerative joint disease 9. Diabetes mellitus type 2 ? Per history managed with diet 10. DVT prophylaxis ? SC Lovenox Time spent in the patient's overall evaluation,decision-making process, review of diagnostic data, adjustment of management, discussion with other providers, nursing nursing and ancillary staff involved in patient's care documentation, 36 Minutes Charges/Coding Visit Charges Inpatient E&M: 92442 Subs Hosp L2
--- NOTE | 2022-04-20 10:34 | CASEMGMT ---
Addendum entered by Gokul Hutchinson 04/20/22 10:38: confirms they do have a walker @ home for pt to use. Original Note: QUINTON REA NOTE: Per therapy, additional therapy recommended. RN CM to room to talk w/pt, who is sitting up in chair in room, and , who is at bedside. states she is interested in pt getting HHC and prefers [facility]. She declines wanting list of other options. Discussed [facility]'s homebound requirements for HHC. Currently, pt would be homebound, but if he improves and getting closer to his baseline by discharge, he may not qualify for HHC. voices understanding. She states, if he does improve and is does not meet criteria for being homebound @ d/c, then she would be willing to take him to OP therapy. Order placed for HHC: PT/OT and [facility]. VM left re: referral. CM to f/u on Friday w/[facility] re: acceptance. Juanpablo MURPHY RN, CM
[2022-04-20 11:27] VITALS: BP 110/49; PULSE 67; RESP 18; TEMP 36.8; O2SAT 94
[2022-04-20] MEDS: Enoxaparin 40 MG/0.4 ML Syringe SC (11:29)
[2022-04-20] MEDS: Menthol/Lanolin/Calamine/Znox 113 GM Tube 1 APPLIC TOPICAL ×2 (11:29→22:22)
[2022-04-20 16:33] VITALS: BP 142/60; PULSE 73; RESP 16; TEMP 37.8; O2SAT 94
[2022-04-20] MEDS: Acetaminophen 650 MG Suppository RC (16:51)
[2022-04-20] MEDS: Ceftriaxone 1 GM/50 ML BAG IV (22:21)
[2022-04-20 22:22] VITALS: BP 115/63; PULSE 79; RESP 18; TEMP 37.3; O2SAT 94
[2022-04-20] MEDS: 0.9% Saline Lock 10 ML Syringe IV (22:22)
[2022-04-21 03:35] VITALS: BP 148/71; PULSE 77; RESP 16; TEMP 37.6; O2SAT 97
[2022-04-21 06:36] LABS: Absolute Neutrophil Count 6.8 X10^3/uL (2.0-7.7); Basophil# 0.02 X10^3/uL; Basophil% 0.2 % (0-1); Eosinophil# 0.15 X10^3/uL; Eosinophils% 1.7 % (0-5); Hematocrit 32.4 % (40-54); Hemoglobin 10.3 g/dL (13.0-16.5); Lymphocyte % 11.6 % (19-41); Mean Corp Hgb Conc 31.8 g/dL (32-36); Mean Corpuscular Hgb 28.9 pg (27.0-32.0); Mean Platelet Vol. 9.6 fl (6.2-12.0); Monocyte# 0.68 X10^3/uL; Monocyte% 7.9 % (0-10); NRBC Flagged by Analyzer 0 % (0-5); Neutrophil # 6.75 X10^3/uL (2.7-7.7); Neutrophil % 78.3 % (47-70); Platelet Count 150 K/mm3 (150-450); RBC Distribution Width CV 14.8 % (11.6-14.6); RBC Distribution Width SD 49.1 fl (35.1-43.9); Red Blood Count 3.56 M/mm3 (4.6-6.2); White Blood Count 8.6 K/mm3 (4.4-11.0)
[2022-04-21 07:05] LABS: Anion Gap 9 (5-15); BUN 23 mg/dL (7-18); BUN/Creat Ratio 24.6 RATIO (10-20); Calcium,Total 8.5 mg/dL (8.5-10.1); Chloride 103 mmol/L (98-107); Creatinine, Serum 0.94 mg/dL (0.70-1.30); EST Glomerular Filtration Rate 83 mL/min (>60); Est Glom Filt Rate - Afr Amer 100 mL/min (>60); Estimated Creatinine Clearance 67.87 ml/min; Glucose 78 mg/dL (74-106); Potassium 4.1 mmol/L (3.5-5.1); Sodium Level 137 mmol/L (136-145)
[2022-04-21 10:33] VITALS: BP 116/59; PULSE 73; RESP 16; TEMP 36.8; O2SAT 95
[2022-04-21] MEDS: Enoxaparin 40 MG/0.4 ML Syringe SC (10:35)
--- NOTE | 2022-04-21 10:47 | PCM.PN.HOSP ---
Subjective Subjective Patient seen urine cultures did reveal Klebsiella pneumonia adjusted antibiotics. Patient is scheduled to undergo modified barium swallow on 04/22/2022; Objective Data Objective Data Vital Signs: Vital Signs Temp Pulse Resp BP Pulse Ox O2 Del Method 99.7 F H 77 16 148/71 H 97 Room Air 04/21/22 03:35 04/21/22 03:35 04/21/22 03:35 04/21/22 03:35 04/21/22 03:35 04/21/22 03:40 Oxygen Delivery Method Room Air Weight: 86.2 kg Body Mass Index (BMI) 26.5 Intake & Output: Intake and Output for Last 24 Hours 04/19/22 04/20/22 04/21/22 23:59 23:59 23:59 Intake Total 1490 / 1490 220 / 220 Output Total 2700 / 2700 775 / 975 400 / 400 Balance -1210 / -1210 -555 / -755 -400 / -400 Lab / Micro Data Result Diagrams: 04/21/22 05:45 04/21/22 05:45 Labs: Laboratory Results - last 24 hr 04/21/22 05:45: WBC 8.6, RBC 3.56 L, Hgb 10.3 L, Hct 32.4 L, MCV 91.0, MCH 28.9, MCHC 31.8 L, RDW Std Deviation 49.1 H, RDW Coeff of Nancy 14.8 H, Plt Count 150, MPV 9.6, Immature Gran % (Auto) 0.300, Neut % (Auto) 78.3 H, Lymph % (Auto) 11.6 L, [place] % (Auto) 7.9, Eos % (Auto) 1.7, Baso % (Auto) 0.2, Absolute Neuts (auto) 6.8, Absolute Lymphs (auto) 1.00, Nucleated RBC % 0 04/21/22 05:45: Sodium 137, Potassium 4.1, Chloride 103, Carbon Dioxide 25.0, Anion Gap 9, BUN 23 H, Creatinine 0.94, Estim Creat Clear Calc 67.87, Est GFR (MDRD) Af Amer 100, Est GFR (MDRD) Non-Af 83, BUN/Creatinine Ratio 24.6 H, Glucose 78, Calcium 8.5 Micro: Microbiology 04/18/22 23:25 Urine, Catheterized Urine Culture - Final Klebsiella pneumoniae sp pneum 04/19/22 00:44 Blood Culture (Wb) - Anticubital Right Blood Culture - Preliminary No growth in 48 hours. 04/19/22 00:20 Blood Culture (Wb) - Port Blood Culture - Preliminary No growth in 48 hours. Physical Exam Narrative GENERAL: cooperative HEENT: Oral candidiasis EYES; Anicteric, Normal Conjunctiva NECK; supple, normal thyroid, RESPIRATORY: Diminished to auscultation CARDIOVASCULAR: Regular S1 S2, GI: soft, normoactive bowel sounds, : No Renal angle tenderness; EXTREMITIES: No edema, no clubbing, MUSCULOSKELETAL: no muscle wasting NEURO: Awake; no lateralizing signs. SKIN: No Rash PSYCH; Flat affect Assessment & Plan Assessment/Plan (1) Urinary retention: (2) Complicated UTI (urinary tract infection): (3) Acute encephalopathy: PLAN: Plan Patient is a 81-year-old gentleman admitted with altered mental status. Diagnosed with acute cystitis please on a monitored bed for further management 1. Acute metabolic encephalopathy ? Secondary to acute cystitis admitted to a monitored bed with treatment of the underlying condition ? 04/21/2022; back to baseline with regards to level of sensorium 2. Acute cystitis secondary to Klebsiella pneumonia Psych secondary to self-catheterization. Patient apparently went into urinary retention prior to being admitted. Urine culture sent patient started on broad-spectrum antibiotic therapy with Rocephin -04/20/2022; Patient continues to spike fever with temperature maximum over the past 24 hours being 103.1. 04/21/2022; urine cultures resulted did reveal Klebsiella pneumonia patient is on ceftriaxone discontinued started on p.o. cefdinir 3. Adenocarcinoma of the stomach ? Currently undergoing chemotherapy at the [facility] last chemo was a week prior to his admission 4. Anemia - Secondary to chronic disorder monitoring H&H and transfuse if patient becomes symptomatic or hemoglobin falls below 7 5. Polymyalgia rheumatica ? Patient is on low-dose prednisone did continue 6. BPH ? Patient is on tamsulosin as well as finasteride did continue 7. GERD with complications including Betancur's esophagus ? Patient is on PPI did continue 8.Chronic back pain ? With history of lumbar degenerative joint disease 9. Diabetes mellitus type 2 ? Per history managed with diet 10. DVT prophylaxis ? SC Lovenox 11. Oral candidiasis ? Patient started on nystatin 12. Dysphagia ? Patient scheduled to undergo modified barium swallow on 04/22/2022. Time spent in the patient's overall evaluation,decision-making process, review of diagnostic data, adjustment of management, discussion with other providers, nursing nursing and ancillary staff involved in patient's care documentation, 36 Minutes Charges/Coding Visit Charges Inpatient E&M: 97869 Subs Hosp L2
[2022-04-21 16:51] VITALS: BP 130/64; PULSE 77; RESP 16; TEMP 37.3; O2SAT 96
[2022-04-21] MEDS: Menthol/Lanolin/Calamine/Znox 113 GM Tube 1 APPLIC TOPICAL (21:36)
[2022-04-21] MEDS: 0.9% Saline Lock 10 ML Syringe IV (21:37)
[2022-04-21 21:44] VITALS: BP 125/77; PULSE 79; RESP 18; TEMP 37.3; O2SAT 97
[2022-04-22] VITALS (8 sets, daily range): BP systolic 110–146; BP diastolic 52–80; PULSE 64–68; RESP 16–18; TEMP 36.4–36.8; O2SAT 95–100
[2022-04-22 05:15] LABS: Absolute Lymphocyte Count 1.48 X10^3/uL (0.83-4.51); Absolute Neutrophil Count 3.7 X10^3/uL (2.0-7.7); Basophil# 0.02 X10^3/uL; Basophil% 0.3 % (0-1); Eosinophil# 0.16 X10^3/uL; Eosinophils% 2.6 % (0-5); Hemoglobin 9.8 g/dL (13.0-16.5); Lymphocyte # 1.48 X10^3/ul (0.83-4.51); Lymphocyte % 23.7 % (19-41); Mean Corp Hgb Conc 30.6 g/dL (32-36); Mean Corpuscular Volume 91.4 fL (80-94); Mean Platelet Vol. 9.5 fl (6.2-12.0); Monocyte# 0.84 X10^3/uL; Monocyte% 13.4 % (0-10); NRBC Flagged by Analyzer 0 % (0-5); Neutrophil # 3.71 X10^3/uL (2.7-7.7); Neutrophil % 59.4 % (47-70); Platelet Count 167 K/mm3 (150-450); RBC Distribution Width CV 14.6 % (11.6-14.6); RBC Distribution Width SD 48.6 fl (35.1-43.9); White Blood Count 6.3 K/mm3 (4.4-11.0)
[2022-04-22 05:47] LABS: Anion Gap 11 (5-15); BUN 27 mg/dL (7-18); BUN/Creat Ratio 32.5 RATIO (10-20); Calcium,Total 8.2 mg/dL (8.5-10.1); Chloride 105 mmol/L (98-107); Creatinine, Serum 0.83 mg/dL (0.70-1.30); EST Glomerular Filtration Rate 95 mL/min (>60); Est Glom Filt Rate - Afr Amer 115 mL/min (>60); Estimated Creatinine Clearance 76.86 ml/min; Glucose 71 mg/dL (74-106); Potassium 3.9 mmol/L (3.5-5.1); Sodium Level 138 mmol/L (136-145)
[2022-04-22] MEDS: Enoxaparin 40 MG/0.4 ML Syringe SC (08:45)
[2022-04-22] MEDS: Menthol/Lanolin/Calamine/Znox 113 GM Tube 1 APPLIC TOPICAL (08:46)
--- NOTE | 2022-04-22 08:59 | PCM.PN.HOSP ---
Subjective Subjective Mental status improved, still has dysphagia, for barium swallow today Objective Data Objective Data Vital Signs: Vital Signs Temp Pulse Resp BP Pulse Ox O2 Del Method 98.2 F 68 18 126/61 H 96 Room Air 04/22/22 03:11 04/22/22 03:11 04/22/22 03:11 04/22/22 03:11 04/22/22 03:11 04/22/22 03:15 Oxygen Delivery Method Room Air Weight: 86.2 kg Body Mass Index (BMI) 26.5 Intake & Output: Intake and Output for Last 24 Hours 04/20/22 04/21/22 04/22/22 23:59 23:59 23:59 Intake Total 220 / 220 Output Total 775 / 975 1250 / 1250 250 / 250 Balance -555 / -755 -1250 / -1250 -250 / -250 Lab / Micro Data Result Diagrams: 04/22/22 04:56 04/22/22 04:56 Labs: Laboratory Results - last 24 hr 04/22/22 04:56: WBC 6.3, RBC 3.50 L, Hgb 9.8 L, Hct 32.0 L, MCV 91.4, MCH 28.0, MCHC 30.6 L, RDW Std Deviation 48.6 H, RDW Coeff of Nancy 14.6, Plt Count 167, MPV 9.5, Immature Gran % (Auto) 0.600, Neut % (Auto) 59.4, Lymph % (Auto) 23.7, [place] % (Auto) 13.4 H, Eos % (Auto) 2.6, Baso % (Auto) 0.3, Absolute Neuts (auto) 3.7, Absolute Lymphs (auto) 1.48, Nucleated RBC % 0 04/22/22 04:56: Sodium 138, Potassium 3.9, Chloride 105, Carbon Dioxide 22.0, Anion Gap 11, BUN 27 H, Creatinine 0.83, Estim Creat Clear Calc 76.86, Est GFR (MDRD) Af Amer 115, Est GFR (MDRD) Non-Af 95, BUN/Creatinine Ratio 32.5 H, Glucose 71 L, Calcium 8.2 L Micro: Microbiology 04/18/22 23:25 Urine, Catheterized Urine Culture - Final Klebsiella pneumoniae sp pneum 04/19/22 00:44 Blood Culture (Wb) - Anticubital Right Blood Culture - Preliminary No growth in 48 hours. 04/19/22 00:20 Blood Culture (Wb) - Port Blood Culture - Preliminary No growth in 48 hours. Physical Exam Narrative General: Alert, oriented, no apparent distress HEENT: Atraumatic, normocephalic Eyes: Anicteric, normal conjunctiva, extraocular movements grossly intact Neck: Supple Respiratory: Clear to auscultation bilaterally, normal respiratory effort Cardiovascular: Regular rate and rhythm GI: Soft, nontender, nondistended Extremities: No edema Musculoskeletal: Moving all extremities Neuro: No overt focal neurological deficits Skin: No rashes appreciated Psych: Cooperative Assessment & Plan Assessment/Plan (1) Urinary retention: (2) Complicated UTI (urinary tract infection): (3) Acute encephalopathy: PLAN: Plan #Acute cystitis secondary to Klebsiella pneumonia in the setting of recent onset urinary retention Started on PO cefdinir Has Ortiz catheter in place, contacted his urologist office to assess continuing Ortiz until outpatient follow-up versus DC with attempts to self cath again as this was only started 2 days before presentation when they were no longer able to cath him Awaiting further determination Mental status significantly improved, likely DC home tomorrow after discussing with urology #Dysphagia Modified barium swallow completed and recommended regular texture diet with thin liquids but multiple compensatory strategies: Small bites, small sips, hard/effortful swallows, slow rate, multiple swallows (double swallow on each sip), sitting upright and remaining upright for least 30 minutes. Close one-to-one supervision. Needs outpatient monitoring #Acute metabolic encephalopathy resolved #Adenocarcinoma of stomach Currently undergoing chemo at [facility] with last chemo week prior to admission #Polymyalgia rheumatica On low-dose prednisone chronically which was continued #GERD with complication of Betancur's esophagus On PPI #BPH Tamsulosin #Oral candidiasis Nystatin #DVT ppx: Subcu Lovenox Nazia Diaz MD time spent in the patient's overall evaluation,decision-making process, review of diagnostic data, adjustment of management, discussion with other providers, nursing nursing and ancillary staff involved in patient's care documentation, 30 minutes Charges/Coding Visit Charges Inpatient E&M: 97214 Subs Hosp L2
--- NOTE | 2022-04-22 14:15 | ST.MBS ---
Modified Barium Swallow - Patient Information Study Date: 04/22/22 Study Time: 13:30 Direct Billable Minutes: 100 Total Minutes procedure & reportin Diagnosis: Complicated UTI (N39.0), Adenocarcinoma of stomach (C16.9) Referring Physician: Nazia Diaz Reason for Referral: Objectively assess swallow function, assess risk for aspiration, and determine recommendations for least restrictive diet textures and compensatory strategies to improve safety of swallow. Medical History: The patient is a 81 y/o M w/ PMH including DM, GERD w/ Betancur's esophagus, Arthritis, Adenocarcinoma of the stomach s/p port placement 12/07/21 and initiation of chemotherapy at that time, Former tobacco use (SEE EMR for full PMH). Pt presented to [facility] ED on 04/19/22 with history of chronic urinary retention with neurogenic bladder requiring straight catheterization with progressively worsening urinary retention, pain, and onset of confusion ~42 hours prior to ED presentation. Pt was admitted for management of urinary retention, complicated UTI, and acute encephalopathy. ST was consulted to assess swallow function and pt was recommended NPO with plan for MBSS prior to diet advancement. Pt and , Kristyn, provided further history just prior to MBSS. Pt's swallowing difficulty onset just this past week. He did have 30 lbs of weight loss due to poor digestion prior to cancer diagnosis; however, he gained 20 lbs back since chemotherapy began via oral intake and use of J-tube. J-tube was recently removed as he was no longer requiring it. Current Diet Ordered: NPO Dentition: Upper Dentures, Lower Dentures Mental Status: WNL - Per , she has noticed no further confusion from UTI. Respiratory Status: Oxygenating on Room Air - Penetration-Aspiration Scale Penetration-Aspiration Scale: OBJECTIVE ASSESSMENT OF SWALLOW FUNCTION (QUANTITATIVE ? PER TRIAL): PENETRATION / ASPIRATION SCALE (ALLAN): 1 = does not enter airway 2 = enters airway/above vocal folds/ejected 3 = enters airway/above vocal folds/not ejected 4 = enters airway/contacts vocal folds/ejected 5 = enters airway/contacts vocal folds/not ejected 6 = enters airway/below vocal folds/ejected 7 = enters airway/below vocal folds/not ejected despite effort 8 = enters airway/below vocal folds/no effort VIDEOFLOROSCOPIC SCALE SCORE (ALLNA): Grade I = aspiration of material that has penetrated into the laryngeal vestibule, intact cough reflex Grade II = aspiration < 10 % of the bolus, intact cough reflex Grade III = aspiration of < 10 % of the bolus, reduced cough reflex or aspiration of > 10 % of the bolus, intact cough reflex Grade IV = aspiration of > 10 % of the bolus, reduced cough reflex - Penetration-Aspiration Scale Score Thin Liquid via teaspoon Result: 2= enter airway/above vocal folds/ejected Thin Liquid via teaspoon Trial 2 Result: 2= enter airway/above vocal folds/ejected Thin Liquid via sequential sips from cup Result: 4= enters airway/contacts vocal folds/ejected Thin Liquid via small single sip from cup Result: 1= does not enter airway [place] Thick Liquid via small single sip from cup Result: 1= does not enter airway - POST PRANDIAL ASPIRATION OF PREVIOUS TRIAL OF THIN LIQUID BY CUP, LIKELY SPILLING FROM PHARYNGEAL RESIDUE IN THE PYRIFORMS [place] Thick Liquid via small single sip from cup Trial 2 Result: 1= does not enter airway Pudding via teaspoon with esophageal screen Result: 1= does not enter airway 1/2 Cookie Result: 1= does not enter airway Thin Liquid via single sip from straw Result: 7= enters airways/below vocal folds/not ejected despite effort Thin Liquid via small single sip from cup Effortful swallow Result: 1= does not enter airway Thin Liquid via small single sip from cup Effortful swallow Trial 2 Result: 1= does not enter airway - Oral Phase Labial Seal: No Labial Escape Tongue Control During Bolus Hold: Posterior escape of less than half of bolus Bolus Preparation/Mastication: Slow prolonged chewing/mashing with complete recollection Bolus Transport/Lingual Motion: Delayed initiation of tongue motion Oral Residue: Residue collection on oral structures - Pharyngeal Phase Initiation of Pharyngeal Swallow: Bolus head in pyriforms Soft Palate Elevation: Trace column of contrast/air between soft palate and pharyngeal wall Laryngeal Elevation: Partial superior movement thyroid cart/partial apprx aryt-epig petiole Anterior Hyoid Excursion: Partial anterior movement Epiglottic Movement: Partial inversion Laryngeal Vestibule Closure at Height of Swallow: Incomplete; narrow column of air/contrast in laryngeal vestibule Pharyngeal Stripping Wave: Present - diminished Pharyngoesophageal Segment Opening: Parital distension and partial duration; parital obstruction of flow Tongue Base Retraction: Wide column of contrast between tongue base & post. pharyngeal wall Pharyngeal Residue: Collection of residue within or on pharyngeal structures - Esophageal Phase Esophageal Clearance: Esophageal retention - Treatment Strategies Effects of treatment strategies attemped:: Effortful swallow = effective. Double swallow = effective. - Diagnosis/Impression Diagnosis: Mild oropharyngeal phase dysphagia (R13.12) Impression: The oral phase is primarily marked by... -Decreased bolus control with <1/2 of the bolus spilling posteriorly to the pyriforms prior to swallow onset observed with thin liquids via straw. -Mild oral residue after the swallow with large sips and cookie, which mostly cleared with independent initiation of a second swallow as needed. -Prolonged, but adequate mastication of cookie trial. The pharyngeal phase is primarily marked by... -Decreased airway closure during the swallow due to mildly decreased anterior hyoid excursion, partial epiglottic inversion, and mildly decreased laryngeal elevation. -Moderately decreased tongue base retraction, mildly decreased UES opening/duration, and mildly decreased pharyngeal stripping wave with resulting mild-moderate pharyngeal residues after the swallow. Use of effortful swallows improved clearance of pharyngeal residue. -SILENT post prandial aspiration of residue thin liquids via cup, which likely spilled between swallows from residue in the pyriforms. Aspiration of thin liquids via straw. The esophageal phase is primarily marked by... -Trace esophageal retention of thin liquids in the upper esophagus. - Recommendations Diet: Regular Textures, Thin Liquids Compensatory Strategies: Small Bites, Small Sips - HARD/EFFORTFUL SWALLOWS, Slow Rate, Multiple Swallows - DOUBLE SWALLOWS ON EACH SIP, Sitting upright, Remain sitting upright for 30 minutes after PO intake Supervision: 1:1 Close Supervision - ok to provide supervision if present Recommend Repeat Modified Barium Swallow: TBD Need for Skilled Speech Therapy Services: Yes Comment: Will recommend the patient for continued dysphagia therapy at this level of care and upon discharge with ST to address deficits in oropharyngeal swallow function. Will recommend the patient for oropharyngeal strengthening to improve tongue base retraction, laryngeal elevation, hyoid excursion, pharyngeal contraction, and duration of UES opening (CTAR, Negar, Effortful, Samra). The patient would benefit from thorough education regarding diet recommendations and recommended compensatory strategies. Education Completed: 1. Described result of evaluation., 2. Pt understands evaluation & agrees with goals and treatment plan., 4. Family/caregivers understand evaluation & agree w/ goals & tx plan., 6. Family/caregivers demonstrate recommended strategies., 7. Pt requires further education on strategies & risks. - Status Active ST Patient: Active - Contact Information [facility] Speech Therapy:: Joseline Stubbs M.A. [facility] Speech-Language Pathologist [facility] [address] [place] [address] [email or web address] [phone] 04/22/22 14:33
--- NOTE | 2022-04-22 16:41 | NURSING ---
Report called to Lizbeth on MS3 at this time.
[2022-04-22] MEDS: Tamsulosin HCl 0.4 MG Capsule PO (22:41)
[2022-04-22] MEDS: Pantoprazole Sodium 40 MG Tablet PO (22:41)
[2022-04-22] MEDS: Cefdinir 300 MG Capsule PO (22:41)
[2022-04-22] MEDS: OLANZapine 10 MG Tablet 5 MG PO (22:45)
[2022-04-22] MEDS: guaiFENesin/Codeine 5 ML UDC 10 ML PO (23:05)
[2022-04-22] MEDS: MELATONIN 3 MG TABLET PO (23:05)
[2022-04-23 05:10] VITALS: BP 163/70; PULSE 89; RESP 16; TEMP 36.6; O2SAT 99
[2022-04-23 07:00] LABS: Absolute Lymphocyte Count 1.07 X10^3/uL (0.83-4.51); Absolute Neutrophil Count 4.5 X10^3/uL (2.0-7.7); Basophil# 0.02 X10^3/uL; Basophil% 0.3 % (0-1); Eosinophil# 0.11 X10^3/uL; Eosinophils% 1.7 % (0-5); Hemoglobin 10.1 g/dL (13.0-16.5); Lymphocyte # 1.07 X10^3/ul (0.83-4.51); Lymphocyte % 16.3 % (19-41); Mean Corp Hgb Conc 31.6 g/dL (32-36); Mean Corpuscular Hgb 28.2 pg (27.0-32.0); Mean Corpuscular Volume 89.4 fL (80-94); Mean Platelet Vol. 9.6 fl (6.2-12.0); Monocyte# 0.83 X10^3/uL; Monocyte% 12.6 % (0-10); NRBC Flagged by Analyzer 0 % (0-5); Neutrophil # 4.51 X10^3/uL (2.7-7.7); Neutrophil % 68.5 % (47-70); Platelet Count 194 K/mm3 (150-450); RBC Distribution Width CV 14.4 % (11.6-14.6); RBC Distribution Width SD 46.3 fl (35.1-43.9); Red Blood Count 3.58 M/mm3 (4.6-6.2); White Blood Count 6.6 K/mm3 (4.4-11.0)
[2022-04-23 07:25] LABS: ALB/GLOB Ratio 0.7 RATIO (0.9-2.4); AST(SGOT) 20 U/L (15-37); Alanine Aminotransfer ALT/SGPT 17 U/L (16-61); Albumin, Serum 2.5 g/dL (3.2-5.0); Alkaline Phosphatase 52 U/L (45-117); Anion Gap 7 (5-15); BUN 23 mg/dL (7-18); BUN/Creat Ratio 24.8 RATIO (10-20); Calcium,Total 8.4 mg/dL (8.5-10.1); Chloride 107 mmol/L (98-107); Creatinine, Serum 0.93 mg/dL (0.70-1.30); EST Glomerular Filtration Rate 83 mL/min (>60); Est Glom Filt Rate - Afr Amer 101 mL/min (>60); Globulin 3.4 g/dL (2.2-4.2); Glucose 139 mg/dL (74-106); Protein, Total 5.9 g/dL (6.4-8.2); Sodium Level 140 mmol/L (136-145)
[2022-04-23 07:50] VITALS: O2SAT 97
[2022-04-23 08:18] VITALS: BP 131/68; PULSE 66; RESP 16; TEMP 36.6; O2SAT 99
[2022-04-23] MEDS: NYSTATIN 500,000 UNIT/5 ML UDC 500000 UNIT PO ×2 (09:02→13:25)
[2022-04-23] MEDS: predniSONE 10 MG Tablet PO (09:02)
[2022-04-23] MEDS: Cefdinir 300 MG Capsule PO (09:02)
[2022-04-23] MEDS: Pantoprazole Sodium 40 MG Tablet PO (09:03)
[2022-04-23] MEDS: Menthol/Lanolin/Calamine/Znox 113 GM Tube 1 APPLIC TOPICAL (09:04)
[2022-04-23] MEDS: Enoxaparin 40 MG/0.4 ML Syringe SC (09:05)
--- NOTE | 2022-04-23 09:05 | PN.HOSP_ITS ---
Objective Data Objective Data Vital Signs: Vital Signs Temp Pulse Resp BP Pulse Ox O2 Del Method 97.8 F 66 16 131/68 H 99 Room Air 04/23/22 08:18 04/23/22 08:18 04/23/22 08:18 04/23/22 08:18 04/23/22 08:18 04/23/22 08:18 Oxygen Delivery Method Room Air Weight: 86.2 kg Body Mass Index (BMI) 26.5 Intake & Output: Intake and Output for Last 24 Hours 04/21/22 04/22/22 04/23/22 23:59 23:59 23:59 Output Total 1250 / 1250 500 / 750 500 / 500 Balance -1250 / -1250 -500 / -750 -500 / -500 Lab / Micro Data Result Diagrams: 04/23/22 06:52 04/23/22 06:52 Labs: Laboratory Results - last 24 hr 04/23/22 06:52: WBC 6.6, RBC 3.58 L, Hgb 10.1 L, Hct 32.0 L, MCV 89.4, MCH 28.2, MCHC 31.6 L, RDW Std Deviation 46.3 H, RDW Coeff of Nancy 14.4, Plt Count 194, MPV 9.6, Immature Gran % (Auto) 0.600, Neut % (Auto) 68.5, Lymph % (Auto) 16.3 L, [place] % (Auto) 12.6 H, Eos % (Auto) 1.7, Baso % (Auto) 0.3, Absolute Neuts (auto) 4.5, Absolute Lymphs (auto) 1.07, Nucleated RBC % 0 04/23/22 06:52: Sodium 140, Potassium 4.0, Chloride 107, Carbon Dioxide 26.0, Anion Gap 7, BUN 23 H, Creatinine 0.93, Estim Creat Clear Calc 68.60, Est GFR (MDRD) Af Amer 101, Est GFR (MDRD) Non-Af 83, BUN/Creatinine Ratio 24.8 H, Glucose 139 H, Calcium 8.4 L, Total Bilirubin 0.50, AST 20, ALT 17, Alkaline Phosphatase 52, Total Protein 5.9 L, Albumin 2.5 L, Globulin 3.4, Albumin/Globulin Ratio 0.7 L Micro: Microbiology 04/18/22 23:25 Urine, Catheterized Urine Culture - Final Klebsiella pneumoniae sp pneum 04/19/22 00:44 Blood Culture (Wb) - Anticubital Right Blood Culture - Preliminary No growth in 48 hours. 04/19/22 00:20 Blood Culture (Wb) - Port Blood Culture - Preliminary No growth in 48 hours. Physical Exam Narrative General: Alert, oriented, no apparent distress HEENT: Atraumatic, normocephalic Eyes: Anicteric, normal conjunctiva, extraocular movements grossly intact Neck: Supple Respiratory: Clear to auscultation bilaterally, normal respiratory effort Cardiovascular: Regular rate and rhythm GI: Soft, nontender, nondistended Extremities: No edema Musculoskeletal: Moving all extremities Neuro: No overt focal neurological deficits Skin: No rashes appreciated Psych: Cooperative Assessment & Plan Assessment/Plan (1) Urinary retention: (2) Complicated UTI (urinary tract infection): (3) Acute encephalopathy: PLAN: Plan #Acute cystitis secondary to Klebsiella pneumonia in the setting of recent onset urinary retention Started on PO cefdinir Has Ortiz catheter in place, contacted his urologist office to assess continuing Ortiz until outpatient follow-up versus DC with attempts to self cath again as this was only started 2 days before presentation when they were no longer able to cath him Awaiting further determination Mental status significantly improved, likely DC home tomorrow after discussing with urology #Dysphagia Modified barium swallow completed and recommended regular texture diet with thin liquids but multiple compensatory strategies: Small bites, small sips, hard/effortful swallows, slow rate, multiple swallows (double swallow on each sip), sitting upright and remaining upright for least 30 minutes. Close one-to-one supervision. Needs outpatient monitoring #Acute metabolic encephalopathy resolved #Adenocarcinoma of stomach Currently undergoing chemo at [facility] with last chemo week prior to admission #Polymyalgia rheumatica On low-dose prednisone chronically which was continued #GERD with complication of Betancur's esophagus On PPI #BPH Tamsulosin #Oral candidiasis Nystatin #DVT ppx: Subcu Lovenox Nazia Diaz MD time spent in the patient's overall evaluation,decision-making process, review of diagnostic data, adjustment of management, discussion with other providers, nursing nursing and ancillary staff involved in patient's care documentation, 30 minutes
--- NOTE | 2022-04-23 09:34 | CASEMGMT ---
Pt accepted by [facility] for therapy per Deja.
[2022-04-23 10:32] VITALS: O2SAT 97
--- NOTE | 2022-04-23 11:51 | CASEMGMT ---
Social Work Pt has a HCPOA on file, naming Kristyn Vergaraaugustinron as agent. The LW is included in the document on file. VÍCTOR Ellsworth
--- NOTE | 2022-04-23 11:56 | CASEMGMT ---
Addendum entered by Deborah Morris 04/23/22 14:00: Pt to dc with a juan manuel, added SN to referral. Pt aware and agreeable. Original Note: QUINTON REA verified with Deja at [facility], they have accepted pt for services. Made aware that pt will need to be seen within 30 days by to have orders signed. TC to office, appt scheduled for May 03 at 2:20pm, [facility] aware and placed on dc instructions. Pt aware.
[2022-04-23 14:18] VITALS: BP 104/62; PULSE 64; RESP 16; TEMP 36.8; O2SAT 98
--- NOTE | 2022-04-23 14:19 | DCINST_ITS ---
Discharge Instructions Diet Discharge Diet: - (egular texture diet with thin liquids but multiple compensatory strategies: Small bites, small sips, hard/effortful swallows, slow rate, multiple swallows (double swallow on each sip), sitting upright and remaining upright for least 30 minutes. Close one-to-one supervision.) Activity Discharge Activity: Return to Normal Activity Follow Up Care Test Results: Test results from this visit will be discussed in further detail at your follow- up appointment, if applicable. Discharge Plan Admission Admit Date/Time: 04/19/22 01:19 Primary Reason for Your Visit: Confusion and urinary retention Attending Provider: Nazia Diaz Primary Care Provider: Cecelia Villasenor Consulting Providers: Francisca Yan ; Malik Weinberg Instructions Patient Instructions: ED Ortiz Catheter, Care Additional Instructions / Restrictions: *Please take this with you to your next doctors appointment* DISCHARGE INSTRUCTIONS PLEASE READ ?You were admitted with a urinary tract infection and you will be discharged on an antibiotic, cefdinir 300 mg every 12 hours with first dose starting this evening and you will take this through 04/27. ?You had persistent retention of urine and were unable to pass the straight cath prior to your hospital admission so you will be discharged with a Ortiz catheter and close follow-up with urology ? You have an appointment with Jose Sims in the urology office on April 26 at 1 PM and they asked that you arrive 15 minutes early. If there are any questions or scheduling problems please call their office ? Olanzapine was on your home medication list, please discuss with your prescribing physician as this may contribute to urinary retention ? Both temazepam (Restoril) and hydrocodone?Homatropine are in your medication list. The combination of these medications can increase confusion and cause falls and would not recommend taking both arms. Would recommend discussing with your prescribing physician ? Your diet recommendations from speech therapy are as follows regular texture diet with thin liquids but multiple compensatory strategies: Small bites, small sips, hard/effortful swallows, slow rate, multiple swallows (double swallow on each sip), sitting upright and remaining upright for least 30 minutes. Close one-to-one supervision. And we will continue to follow with speech therapy on an outpatient basis ?You have an appointment in your primary care physician office. Please keep this appointment in order for Dr. Villasenor to sign for the home health orders. Please arrive at 2:05pm. -Please call your primary care provider's office upon discharge to schedule a hospital follow up within 1 week. -For any concerning signs or symptoms please call 911 or proceed to the nearest emergency department Discharge Orders/Prescriptions Prescriptions: New cefdinir 300 mg Capsule 300 mg PO Q12 9 Days Qty: 18 0RF Continued prednisone 10 mg tablet 10 mg PO DAILY Label Comments: TAKE 2 TABLETS BY MOUTH ONCE DAILY ondansetron HCl 4 mg tablet 8 mg PO Q8H PRN PRN (Reason: Nausea) Label Comments: TAKE 1 TABLET BY MOUTH EVERY 8 HOURS NEEDED FOR NAUSEA AND VOMITING pantoprazole [Protonix] 40 mg Tablet,Delayed Release (Dr/Ec) 40 mg PO BID tamsulosin 0.4 mg capsule 0.4 mg PO QHS Label Comments: TAKE 1 CAPSULE BY MOUTH ONCE DAILY AT BEDTIME olanzapine [Zyprexa] 10 mg Tablet 10 mg PO DAILY hydrocodone-homatropine 5-1.5 mg/5 mL syrup 5 ml PO Q6H PRN (Reason: Cough) Label Comments: TAKE 5 ML BY MOUTH EVERY 6 HOURS NEEDED UP TO 7 DAYS Held temazepam [Restoril] 15 mg Capsule 15 mg PO QHS PRN (Reason: Sleep) Hold Instructions: Resume on 05/01/22. Would advise holding until discussing with your prescribing physician Referrals / Follow Up: Jose Sims PA-C [Other] - 04/26/22 1:00 pm Cecelia Villasenor DO [Primary Care Provider] - 05/03/22 2:20 pm (Please keep this appointment in order for to sign for the home health orders. Please arrive at 2:05pm. ) Disposition Disposition (needs filled in before D/C Order can be placed): Home Health Service
--- NOTE | 2022-04-23 14:33 | PCM.DC.SUM ---
Providers Date of Admission: 04/19/22 Date of Discharge: 04/23/22 Primary Care Physician: Dr. Cecelia Villasenor DO Reason For Visit: ENCEPHALOPATHY, URINARY RETENTION, UTI Diagnosis Discharge Diagnosis (1) Urinary retention: Status: Acute Code(s): R33.9 - Retention of urine, unspecified (2) Complicated UTI (urinary tract infection): Status: Acute Code(s): N39.0 - Urinary tract infection, site not specified (3) Acute encephalopathy: Status: Acute Code(s): G93.40 - Encephalopathy, unspecified Plan #Acute cystitis secondary to Klebsiella pneumonia in the setting of recent onset urinary retention #Dysphagia #Acute metabolic encephalopathy resolved #Adenocarcinoma of stomach #Polymyalgia rheumatica #GERD with complication of Betancur's esophagus #BPH Medications at Discharge Home Medications ondansetron HCl 4 mg tablet 8 mg PO Q8H PRN PRN Nausea 12/06/21 pantoprazole 40 mg tablet,delayed release (Protonix) 40 mg PO BID GERD 12/06/21 prednisone 10 mg tablet 10 mg PO DAILY 12/06/21 tamsulosin 0.4 mg capsule 0.4 mg PO QHS urine flow 12/06/21 temazepam 15 mg capsule (Restoril) 15 mg PO QHS PRN Sleep 12/06/21 hydrocodone-homatropine 5 mg-1.5 mg/5 mL oral syrup 5 ml PO Q6H PRN Cough 04/19/22 olanzapine 10 mg tablet (Zyprexa) 10 mg PO DAILY 04/19/22 cefdinir 300 mg capsule 300 mg PO Q12 9 days #18 caps 04/23/22 Hospital Course Summary of Care Provided Minutes Spent on Discharge: 30 Hospital Course: 81-year-old male with history of polymyalgia rheumatica on chronic prednisone, GERD with Betancur's esophagus, BPH, adenocarcinoma of the stomach status post port placement 12/07/2021 and initiation of chemo at that time who presented to [facility] ED 04/19/2022 with urinary retention and confusion. He had started having difficulty urinating and was seen in the urology office several days prior to presentation and was instructed on how to self catheterize and is educated as well. At home they done it without difficulty initially but then was unable to pass catheter and due to his increasing confusion he was brought to the hospital. Did have a T-max of 103 and was found to have a UA suggestive of UTI and urine culture ordered and Ortiz placed. Patient was started on Rocephin and urine culture grew Klebsiella pneumonia. He was transitioned to p.o. cefdinir and mental status significantly improved. Did discuss with urology office about leaving Ortiz in versus going back to self cath and discussed with patient and his and ultimately will DC with Ortiz in place and he will follow-up in the office on 26 April at 1 PM which but the patient and are aware of. Additionally during his hospital stay he began having Wilmes swallowing and had a modified barium swallow completed and was given compensatory strategies and tolerated diet on the day of discharge well. Day of discharge denied any complaints and was feeling well he and were comfortable with discharge home. Discharge instructions as followed: *Please take this with you to your next doctors appointment* DISCHARGE INSTRUCTIONS PLEASE READ -You had persistent retention of urine and were unable to pass the straight cath prior to your hospital admission so you will be discharged with a Ortiz catheter and close follow-up with urology - You have an appointment with Jose Sims in the urology office on April 26 at 1 PM and they asked that you arrive 15 minutes early. If there are any questions or scheduling problems please call their office - Olanzapine was on your home medication list, please discuss with your prescribing physician as this may contribute to urinary retention - Both temazepam (Restoril) and hydrocodone-Homatropine are in your medication list. The combination of these medications can increase confusion and cause falls and would not recommend taking both arms. Would recommend discussing with your prescribing physician -Your admitted with a urinary tract infection and you will be discharged on an antibiotic, cefdinir 300 mg every 12 hours with first dose starting this evening and you will take this through 04/27. - Your diet recommendations from speech therapy are as follows regular texture diet with thin liquids but multiple compensatory strategies: Small bites, small sips, hard/effortful swallows, slow rate, multiple swallows (double swallow on each sip), sitting upright and remaining upright for least 30 minutes. Close one-to-one supervision. And we will continue to follow with speech therapy on an outpatient basis -You have an appointment in your primary care physician office. Please keep this appointment in order for Dr. Villasenor to sign for the home health orders. Please arrive at 2:05pm. -Please call your primary care provider's office upon discharge to schedule a hospital follow up within 1 week. -For any concerning signs or symptoms please call 911 or proceed to the nearest emergency department Physical Exam Narrative General: Alert, oriented, no apparent distress HEENT: Atraumatic, normocephalic Eyes: Anicteric, normal conjunctiva, extraocular movements grossly intact Neck: Supple Respiratory: Clear to auscultation bilaterally, normal respiratory effort Cardiovascular: Regular rate and rhythm GI: Soft, nontender, nondistended Extremities: No edema Musculoskeletal: Moving all extremities Neuro: No overt focal neurological deficits Skin: No rashes appreciated Psych: Cooperative Weight / BMI Weight Weight: 86.2 kg Body Mass Index (BMI) 26.5 ABG / Lab / Microbiology Data Result Diagrams: 04/23/22 06:52 04/23/22 06:52 Laboratory: Laboratory Results - last 24 hr 04/23/22 06:52: WBC 6.6, RBC 3.58 L, Hgb 10.1 L, Hct 32.0 L, MCV 89.4, MCH 28.2, MCHC 31.6 L, RDW Std Deviation 46.3 H, RDW Coeff of Nancy 14.4, Plt Count 194, MPV 9.6, Immature Gran % (Auto) 0.600, Neut % (Auto) 68.5, Lymph % (Auto) 16.3 L, Wilcox % (Auto) 12.6 H, Eos % (Auto) 1.7, Baso % (Auto) 0.3, Absolute Neuts (auto) 4.5, Absolute Lymphs (auto) 1.07, Nucleated RBC % 0 04/23/22 06:52: Sodium 140, Potassium 4.0, Chloride 107, Carbon Dioxide 26.0, Anion Gap 7, BUN 23 H, Creatinine 0.93, Estim Creat Clear Calc 68.60, Est GFR (MDRD) Af Amer 101, Est GFR (MDRD) Non-Af 83, BUN/Creatinine Ratio 24.8 H, Glucose 139 H, Calcium 8.4 L, Total Bilirubin 0.50, AST 20, ALT 17, Alkaline Phosphatase 52, Total Protein 5.9 L, Albumin 2.5 L, Globulin 3.4, Albumin/Globulin Ratio 0.7 L Microbiology: Microbiology 04/18/22 23:25 Urine, Catheterized Urine Culture - Final Klebsiella pneumoniae sp pneum 04/19/22 00:44 Blood Culture (Wb) - Anticubital Right Blood Culture - Preliminary No growth in 48 hours. 04/19/22 00:20 Blood Culture (Wb) - Port Blood Culture - Preliminary No growth in 48 hours. D/C Instructions Discharge Diet: - (egular texture diet with thin liquids but multiple compensatory strategies: Small bites, small sips, hard/effortful swallows, slow rate, multiple swallows (double swallow on each sip), sitting upright and remaining upright for least 30 minutes. Close one-to-one supervision.) Meaningful Use Info Meaningful Use Diagnoses (Choose all that apply): None applicable Discharge Plan Admission Admit Date/Time: 04/19/22 01:19 Primary Reason for Your Visit: Confusion and urinary retention Attending Provider: Nazia Diaz Primary Care Provider: Cecelia Villasenor Consulting Providers: Francisca Yan ; Malik Weinberg Instructions Patient Instructions: Urinary Catheter Bag Empty Clean, Leg Bag Care Dc, ED Ortiz Catheter, Care Additional Instructions / Restrictions: *Please take this with you to your next doctors appointment* DISCHARGE INSTRUCTIONS PLEASE READ ?You were admitted with a urinary tract infection and you will be discharged on an antibiotic, cefdinir 300 mg every 12 hours with first dose starting this evening and you will take this through 04/27. ?You had persistent retention of urine and were unable to pass the straight cath prior to your hospital admission so you will be discharged with a Ortiz catheter and close follow-up with urology ? You have an appointment with Jose Sims in the urology office on April 26 at 1 PM and they asked that you arrive 15 minutes early. If there are any questions or scheduling problems please call their office ? Olanzapine was on your home medication list, please discuss with your prescribing physician as this may contribute to urinary retention ? Both temazepam (Restoril) and hydrocodone?Homatropine are in your medication list. The combination of these medications can increase confusion and cause falls and would not recommend taking both arms. Would recommend discussing with your prescribing physician ? Your diet recommendations from speech therapy are as follows regular texture diet with thin liquids but multiple compensatory strategies: Small bites, small sips, hard/effortful swallows, slow rate, multiple swallows (double swallow on each sip), sitting upright and remaining upright for least 30 minutes. Close one-to-one supervision. And we will continue to follow with speech therapy on an outpatient basis ?You have an appointment in your primary care physician office. Please keep this appointment in order for Dr. Villasenor to sign for the home health orders. Please arrive at 2:05pm. -Please call your primary care provider's office upon discharge to schedule a hospital follow up within 1 week. -For any concerning signs or symptoms please call 911 or proceed to the nearest emergency department Discharge Orders/Prescriptions Prescriptions: New cefdinir 300 mg Capsule 300 mg PO Q12 9 Days Qty: 18 0RF Continued prednisone 10 mg tablet 10 mg PO DAILY Label Comments: TAKE 2 TABLETS BY MOUTH ONCE DAILY ondansetron HCl 4 mg tablet 8 mg PO Q8H PRN PRN (Reason: Nausea) Label Comments: TAKE 1 TABLET BY MOUTH EVERY 8 HOURS NEEDED FOR NAUSEA AND VOMITING pantoprazole [Protonix] 40 mg Tablet,Delayed Release (Dr/Ec) 40 mg PO BID tamsulosin 0.4 mg capsule 0.4 mg PO QHS Label Comments: TAKE 1 CAPSULE BY MOUTH ONCE DAILY AT BEDTIME olanzapine [Zyprexa] 10 mg Tablet 10 mg PO DAILY hydrocodone-homatropine 5-1.5 mg/5 mL syrup 5 ml PO Q6H PRN (Reason: Cough) Label Comments: TAKE 5 ML BY MOUTH EVERY 6 HOURS NEEDED UP TO 7 DAYS Held temazepam [Restoril] 15 mg Capsule 15 mg PO QHS PRN (Reason: Sleep) Hold Instructions: Resume on 05/01/22. Would advise holding until discussing with your prescribing physician Referrals / Follow Up: Jose Sims PA-C [Other] - 04/26/22 1:00 pm Cecelia Villasenor DO [Primary Care Provider] - 05/03/22 2:20 pm (Please keep this appointment in order for to sign for the home health orders. Please arrive at 2:05pm. ) Disposition Disposition (needs filled in before D/C Order can be placed): Home Health Service Charges/Coding Visit Charges Inpatient E&M: 94431 Disch Hosp >30min
[2022-04-23] MEDS: 0.9% Saline Lock 10 ML Syringe IV (15:31)
== END 2022-04-23 15:30 | disposition home health service (06) | DRG 689 ==
LOC: ED 04-19 01:30 → PCU 04-19 01:37 → MS3 04-22 17:09
PROVIDERS: Internal Medicine; Admitting Provider Family Medicine; Emergency Provider Emergency Medicine; PCP Family Medicine; Visit Provider Internal Medicine
DX: N30.00 Acute cystitis without hematuria (principal); G93.41 Metabolic encephalopathy; B37.0 Candidal stomatitis; C16.9 Malignant neoplasm of stomach, unspecified; E11.9 Type 2 diabetes mellitus without complications; B96.1 Klebsiella pneumoniae [K. pneumoniae] as the cause of diseases classified elsewhere; M35.3 Polymyalgia rheumatica; K21.9 Gastro-esophageal reflux disease without esophagitis; K22.70 Barrett's esophagus without dysplasia; F32.A Depression, unspecified; M54.50 Low back pain, unspecified; Z92.21 Personal history of antineoplastic chemotherapy; R33.9 Retention of urine, unspecified; Z87.891 Personal history of nicotine dependence; Z79.52 Long term (current) use of systemic steroids; N40.1 Benign prostatic hyperplasia with lower urinary tract symptoms
CPT/HCPCS: 36415; 36591; 51702; 70450; 71045; 74230; 80048; 80053; 80076; 81001; 82140; 83605; 83735; 84100; 84443; 85025; 87040; 87077; 87086; 87088; 87186; 92507; 92526; 92610; 92611; 94668; 97110; 97116; 97162; 97166; 97530; 97535; 99252; 99284; J7030; A4216; G0463

== ENCOUNTER 2022-04-28 21:13 | Inpatient (IN) | payer MEDICARE, OTHER, SELFPAY ==
[2022-04-28] VITALS (7 sets, daily range): BP systolic 127–163; BP diastolic 77–103; PULSE 96–110; RESP 19–28; TEMP 38.8–39.6; O2SAT 94–100; BMI 26.4
--- NOTE | 2022-04-28 21:51 | EKG12_ITS ---
Test Reason : FEVER Blood Pressure : / mmHG Vent. Rate : 110 BPM Atrial Rate : 110 BPM P-R Int : 162 ms QRS Dur : 128 ms QT Int : 336 ms P-R-T Axes : 020 068 014 degrees QTc Int : 454 ms Sinus tachycardia Right bundle branch block Abnormal ECG Confirmed by CARLTON HARO MD ([id number]), metropolitan editor NITA ACEVEDO ([id number]) on 04/29/2022 1:11:41 PM Referred By: LIZBETH Confirmed By:CARLTON HARO MD
--- NOTE | 2022-04-28 22:07 | EX.ED.DYSGE1 ---
HPI History of Present Illness Chief Complaint: Fever Detail of Chief Complaint: Abrupt onset of change in mental status after coughing. Informant: spouse/S.O. Limited: other (Acute encephalopathy) Onset/Context/Timing Onset: Hours Context: Sudden Onset Timing: Continuous Quality: Patient does not know his age, date or whereabouts. Location: Prior to arrival symptoms started at home Current Severity: Severe Maximum Severity: Severe Worsened by: Patient is on chemotherapy and recent admission for complicated urinary tra Relieved by: Nothing Associated Symptoms Associated Symptoms: Fever, decreased p.o. intake, cough and altered mental status Narrative Narrative: Patient is a 81-year-old male who receives chemo weekly. He has history of gastric carcinoma. Patient was admitted for acute encephalopathy due to complicated urinary tract infection and urinary retention. Patient was discharged from the hospital on April 23. He is presently on an antibiotic. is the primary informant. She states he began to cough. He had altered mental status and was not making sense. She called the squad to bring him to the emergency department. 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 He receives chemo weekly per . Prior similar symptoms: Yes Recent Illness/Hospitalization: Yes (Acute encephalopathy due to urinary tract and) [facility] Medical History Arthritis Betancur's esophagus without dysplasia Bilateral low back pain with sciatica Cancer Diabetes mellitus Difficulty swallowing Erectile dysfunction Former smoker Gastric reflux History of steroid therapy Polymyalgia rheumatica Wears dentures Wears hearing aid Home Medications ondansetron HCl 4 mg tablet 8 mg PO Q8H PRN PRN Nausea 12/06/21 [History Last Taken Unknown] pantoprazole 40 mg tablet,delayed release (Protonix) 40 mg PO BID GERD 12/06/21 [History Last Taken 12/07/21 07:00] prednisone 10 mg tablet 10 mg PO DAILY 12/06/21 [History Last Taken Unknown] tamsulosin 0.4 mg capsule 0.4 mg PO QHS urine flow 12/06/21 [History Last Taken Unknown] hydrocodone-homatropine 5 mg-1.5 mg/5 mL oral syrup 5 ml PO Q6H PRN Cough 04/19/22 [History Last Taken Unknown] olanzapine 10 mg tablet (Zyprexa) 10 mg PO DAILY 04/19/22 [History Last Taken Unknown] cefdinir 300 mg capsule 300 mg PO Q12 9 days #18 caps 04/23/22 [Rx Last Taken Unknown] finasteride 5 mg tablet 5 mg PO DAILY 04/28/22 [History Last Taken Unknown] Allergy/AdvReac Type Severity Reaction Status Date / Time No Known Allergies Allergy Verified 04/18/22 22:33 Family History Mother CVA (cerebral vascular accident) Cancer kidney Surgical History History of carpal tunnel release of both wrists History of esophagogastroduodenoscopy (EGD) Social History household members: spouse Smoking Status: Former smoker Tobacco: How many years used: 25 how long ago did patient quit smokin, 0.5ppd second hand exposure: Yes ROS ROS ED Review of Systems ROS Unobtainable: due to mental status Constitutional Constitutional ED: Reports chills and fever(s) Respiratory/Chest Respiratory/Chest: Reports cough Neurologic Neurologic: Reports other Details: Acute altered mental status Hematologic/Lymphatic Hematologic/Lymphatic: Reports systems reviewed and no addt'l complaints, except as documented EXAM Physical Exam Const Vital Signs: 04/28/22 21:15 04/28/22 21:40 04/28/22 21:48 Temperature 101.9 F H 102.9 F H 102.8 F H Temperature Source Temporal Oral Oral Pulse Rate 109 H 105 H 109 H Respiratory Rate 19 H 26 H 27 H Respiratory Effort Respiratory Pattern Blood Pressure 153/80 H 143/103 H 143/103 H Blood Pressure Mean 104 116 116 Pulse Ox 100 98 96 Oxygen Delivery Method Room Air Room Air Room Air 04/28/22 22:00 04/28/22 22:19 04/28/22 22:31 Temperature 103.2 F H Temperature Source Oral Pulse Rate 110 H Respiratory Rate 28 H Respiratory Effort Short of Breath Respiratory Pattern Tachypnea Blood Pressure 153/77 H Blood Pressure Mean 102 Pulse Ox 98 94 Oxygen Delivery Method Room Air Room Air 04/28/22 22:53 Temperature 103.2 F H Temperature Source Oral Pulse Rate 105 H Respiratory Rate 26 H Respiratory Effort Respiratory Pattern Blood Pressure 163/96 H Blood Pressure Mean 118 Pulse Ox 94 Oxygen Delivery Method Room Air Positive well nourished and well developed Constitutional Narrative: Patient appears flushed. He is disoriented. He has difficulty following simple commands. General Appearance ED: well developed and NAD; Negative for cyanotic or diaphoretic HEENT Reports dry mucous membranes HEENT Narrative: Head is atraumatic normocephalic. Ears normal. Nares patent. Mucosa is dry. Posterior pharynx out erythema or or exudate. Uvula is midline. Mouth ED: Yes dry mucous membranes Mouth: dry mucous membranes Eyes PERRL and EOMs intact bilaterally General Eye ED: Negative for pale conjunctiva or scleral icterus Chest Wall inspection of chest normal and palpation of chest normal Chest Narrative: Patient has a port right infraclavicular area. There is no erythema, warmth or induration. There is no fluctuance. Resp normal respiratory effort and No clear to auscultation bilaterally Auscultation: rales bilateral lower and wheezes expiratory wheezes and throughout Cardio regular rhythm, S1 normal heart sound, S2 normal heart sound and no murmurs Rate: tachycardic GI normal to inspection, nondistended, normoactive bowel sounds, non-tender, non-distended and no masses; Negative for hepatosplenomegaly Back/Spine no CVA tenderness Extremity normal to inspection Neuro No oriented x3 and CN's II-XII intact bilaterally Sensorium / Orientation: orientation impaired; Negative for alert Psych Psych Narrative: Difficult to assess Skin Skin Narrative: Patient is flushed. He is very warm to touch. Sepsis Attestation Sepsis Alert: Yes Sepsis Attestation: Agree w/Sepsis Date exam was performed: 04/28/22 Time exam was performed: 21:30 Possible Source of Sepsis: Other Sepsis Organ Dysfunction Criteria Present: Lactic Acid > 2 mmol/L and New/Unexplained change in mental status Fluid Resuscitation Fluid resuscitation indicated?: Yes (Fluids were not administered since patient is not hypotensive.) MDM MDM MDM Narrative Medical decision making narrative: Concern patient is septic. His acute mental status is in all likelihood due to infectious encephalopathy. With recent admission, complicated urinary tract infection now with cough and history of chemotherapy with port we will treat with Zosyn and vancomycin. Sepsis order set was initiated. was told he will require admission to the hospital. Records from prior admission were reviewed and summarized in the HPI narrative. I was informed by nurse that his temperature now is 103.8. P.o. acetaminophen was ordered. His lactate is elevated as well. Lab Data Attestation: I reviewed the patient's lab results. Lab results narrative: CBC is remarkable for shift with bands, metamyelocytes and myelocytes. White count is normal, which is concerning for coags are normal. Comprehensive metabolic panel is unremarkable. Glucose is slight elevated 108. Lactate is elevated 2.7. Labs: Laboratory Results - last 24 hr 04/28/22 04/28/22 04/28/22 21:55 21:55 21:55 WBC 7.3 RBC 4.00 L Hgb 11.3 L Hct 36.8 L MCV 92.0 MCH 28.3 MCHC 30.7 L RDW Std Deviation 51.1 H RDW Coeff of Nancy 15.4 H Plt Count 404 MPV 9.1 Neut % (Auto) Not Reportable Absolute Neuts (auto) 6.6 Absolute Lymphs (auto) 0.22 L Total Counted 100 Neutrophils % (Manual) 83 H Band Neutrophils % 1 Lymphocytes % (Manual) 3 L Monocytes % (Manual) 6 Eosinophils % (Manual) 1 Metamyelocytes % 3 H Myelocytes % 3 H Diff Path Review May foll Platelet Estimate ADEQUATE RBC Morphology N CYTIC Polychromasia RARE PT 13.0 INR 1.0 APTT 28.2 Sodium 138 Potassium 4.3 Chloride 102 Carbon Dioxide 29.0 Anion Gap 7 BUN 13 Creatinine 1.12 Estim Creat Clear Calc 56.96 Est GFR (MDRD) Af Amer 81 Est GFR (MDRD) Non-Af 67 BUN/Creatinine Ratio 11.6 Glucose 108 H Lactic Acid Calcium 8.9 Total Bilirubin 0.20 AST 21 ALT 24 Alkaline Phosphatase 70 Total Protein 7.1 Albumin 3.4 Globulin 3.7 Albumin/Globulin Ratio 0.9 Urine Color Urine Clarity Urine pH Ur Specific [place] Urine Protein Urine Glucose (UA) Urine Ketones Urine Occult Blood Urine Nitrite Urine Bilirubin Urine Urobilinogen Ur Leukocyte Esterase Urine RBC Urine WBC Ur Squamous Epith Cells Calcium Oxalate Crystal Amorphous Sediment Urine Bacteria Urine Mucus 04/28/22 04/28/22 21:55 22:10 WBC RBC Hgb Hct MCV MCH MCHC RDW Std Deviation RDW Coeff of Nancy Plt Count MPV Neut % (Auto) Absolute Neuts (auto) Absolute Lymphs (auto) Total Counted Neutrophils % (Manual) Band Neutrophils % Lymphocytes % (Manual) Monocytes % (Manual) Eosinophils % (Manual) Metamyelocytes % Myelocytes % Diff Path Review Platelet Estimate RBC Morphology Polychromasia PT INR APTT Sodium Potassium Chloride Carbon Dioxide Anion Gap BUN Creatinine Estim Creat Clear Calc Est GFR (MDRD) Af Amer Est GFR (MDRD) Non-Af BUN/Creatinine Ratio Glucose Lactic Acid 2.7 H* Calcium Total Bilirubin AST ALT Alkaline Phosphatase Total Protein Albumin Globulin Albumin/Globulin Ratio Urine Color Yellow Urine Clarity Sl. Cloudy Urine pH 6.0 Ur Specific [place] 1.010 Urine Protein 30 H Urine Glucose (UA) Normal Urine Ketones Negative Urine Occult Blood 250 H Urine Nitrite Negative Urine Bilirubin Negative Urine Urobilinogen Normal Ur Leukocyte Esterase 25 H Urine RBC 50-100 SEEN Urine WBC 0-5 SEEN Ur Squamous Epith Cells 0-5 SEEN Calcium Oxalate Crystal RARE Amorphous Sediment 1+ URATE Urine Bacteria 0 SEEN Urine Mucus 0 SEEN Radiography Chest X-Ray - ED: 1 View and Read by ED Physician (Port noted on the right side. Patient is slightly rotated. Cardiac silhouette and size unremarkable. Lung parenchyma is unremarkable. Osseous structures are unremarkable. This is nontender reviewed interpreted by me at 2240.) Diagnostic Testing: Clinical Impression(s) from Imaging Studies Chest X-Ray 04/28/22 22:10 IMPRESSION: 1. No change central line. 2. Minimal patchy opacity right lung base improved compared to the previous exam. Electronically Signed: Myles Mayberry MD at 22:45 EST , EKG Initial EKG: Attestation: I personally reviewed and interpreted this EKG as follows: Interpretation: Sinus Tachycardia (Ventricular rate is 110. There is evidence of right bundle branch block. There is artifact due to coughing. MD interval is 160 ms. Cures duration 128 ms. QT duration 236 ms.) Critical Care Time Critical Care Time: Yes Critical care time (excluding procedures): 30-74 minutes (33), Including time spent: (History, physical, documentation, review of prior records interpretation laboratory results initiation of therapy), Discussing w/Patient &/or Family/[employer] Associate, Discussing w/Consultants, Arranging Admission or Transfer (Case was discussed with hospitalist. She requested admission to [facility]) and Performing Direct Patient Care at Bedside (Repeat examination and reassessment) Discharge Plan Dx/Rx/DC Orders Clinical Impression: Infectious encephalopathy, Fever and chills, Adenocarcinoma of stomach, Sinus tachycardia, Immunosuppression due to drug therapy, Acidosis, lactic, Sepsis, Elevated blood pressure reading Disposition Disposition: Acute Care [facility]
[2022-04-28 22:10] LABS: Hematocrit 36.8 % (40-54); Hemoglobin 11.3 g/dL (13.0-16.5); Mean Corp Hgb Conc 30.7 g/dL (32-36); Mean Corpuscular Hgb 28.3 pg (27.0-32.0); Mean Platelet Vol. 9.1 fl (6.2-12.0); POSITIVE COUNT YES; POSITIVE MORPHOLOGY YES; Platelet Count 404 K/mm3 (150-450); RBC Distribution Width CV 15.4 % (11.6-14.6); RBC Distribution Width SD 51.1 fl (35.1-43.9); White Blood Count 7.3 K/mm3 (4.4-11.0)
--- NOTE | 2022-04-28 22:10 | RAD_ITS ---
EXAM: XR CHEST, 1 VIEW CLINICAL INDICATION: Cough, fever and bilateral rales TECHNIQUE: Frontal view of the chest. This report was created using [employer] report generation technology. COMPARISON: 04/12/2022. FINDINGS: LUNGS AND PLEURAL SPACES: Minimal patchy opacity right lung base improved compared to the previous exam. No pneumothorax. No effusion. HEART: Unremarkable. Cardiac silhouette not enlarged. MEDIASTINUM: Central airways and mediastinal contour are unremarkable. BONES/JOINTS: Unremarkable. SOFT TISSUES: Unremarkable. TUBES, LINES AND DEVICES: No change central line. RAD/Chest 1 View (Portable) IMPRESSION: 1. No change central line. 2. Minimal patchy opacity right lung base improved compared to the previous exam. Electronically Signed: Myles Mayberry MD at 22:45 EST ,
[2022-04-28 22:21] LABS: Bacteria 0 SEEN /hpf (None Seen); Mucous, Urine 0 SEEN /hpf (<or=2+)
[2022-04-28 22:22] LABS: Partial Thromboplast Time 28.2 Seconds (24.1-36.2)
[2022-04-28 22:23] LABS: Differential Indicated MANUAL DIFF
[2022-04-28 22:25] LABS: Color, Urine Yellow (Yellow); Glucose, Dipstick Normal (Normal); Ketone-Dipstick Negative (Negative); Leukocyte Esterase-Dipstick 25 /ul (Negative); Nitrite-Dipstick Negative (Negative); Occult Blood-Urine 250 /ul (Negative); Protein-Dipstick 30 mg/dl (Negative); Urine Bilirubin Dipstick Negative (Negative); Urine Clarity Sl. Cloudy (Clear); Urine Urobilinogen Normal (Normal)
[2022-04-28 22:26] LABS: ALB/GLOB Ratio 0.9 RATIO (0.9-2.4); AST(SGOT) 21 U/L (15-37); Alanine Aminotransfer ALT/SGPT 24 U/L (16-61); Albumin, Serum 3.4 g/dL (3.2-5.0); Alkaline Phosphatase 70 U/L (45-117); Anion Gap 7 (5-15); BUN 13 mg/dL (7-18); BUN/Creat Ratio 11.6 RATIO (10-20); Calcium,Total 8.9 mg/dL (8.5-10.1); Chloride 102 mmol/L (98-107); Creatinine, Serum 1.12 mg/dL (0.70-1.30); EST Glomerular Filtration Rate 67 mL/min (>60); Est Glom Filt Rate - Afr Amer 81 mL/min (>60); Estimated Creatinine Clearance 56.96 ml/min; Globulin 3.7 g/dL (2.2-4.2); Glucose 108 mg/dL (74-106); Potassium 4.3 mmol/L (3.5-5.1); Protein, Total 7.1 g/dL (6.4-8.2); Sodium Level 138 mmol/L (136-145)
[2022-04-28] MEDS: 0.9% Normal Saline 1,000 ML 150 ML IV (22:30)
[2022-04-28 22:34] LABS: Eosinophil 1 % (0-5); Lymphocyte 3 % (19-41); Metamyelocyte 3 % (0-1); Monocyte 6 % (0-10); Myelocyte 3 % (0-0); Neutrophil-Band 1 % (0-5); Neutrophil-Segmented 83 % (47-70); Total Cells Counted 100 (MANUAL DIFF)
[2022-04-28 22:36] LABS: Absolute Neutrophil Count 6.6 X10^3/uL (2.0-7.7)
[2022-04-28 22:37] LABS: Absolute Lymphocyte Count 0.22 X10^3/uL (0.83-4.51); Lymphocyte # 0.22 X10^3/ul (0.83-4.51); Platelet Estimate ADEQUATE (ADEQ)
[2022-04-28 22:38] LABS: Lactic Acid 2.7 mmol/L (0.4-1.9); Polychromasia RARE
[2022-04-28 22:39] LABS: Red Cell Morphology N CYTIC NORMAL (NORM C&C)
[2022-04-28 22:45] LABS: Red Blood Cells-Urine 50-100 SEEN /hpf (0-5); Squamous Epithelial Cells - UA 0-5 SEEN /hpf (0-5); White Blood Cells 0-5 SEEN /hpf (0-5)
[2022-04-28 22:46] LABS: Amorphous Sediment 1+ URATE; Calcium Oxalate Crystals Ur RARE /hpf (<or=2+)
[2022-04-28] MEDS: Acetaminophen 325 MG Tablet 650 MG PO (22:49)
--- NOTE | 2022-04-28 23:27 | PCM.HP.STD ---
HPI - General General Date of Admission: 04/28/22 Date of Service: 04/28/22 Chief Complaint: Confusion - 1 day HPI Narrative TRISTAN KAUR, is a 81 M who presents with the above. He has past medical history of polymyalgia rheumatica on chronic prednisone, GERD with Betancur's esophagus, BPH, carcinoma of the stomach, on chemotherapy, follows with [facility] oncology. Patient was recently discharged on 04/23/2022 after admission for acute Klebsiella pneumonia UTI secondary to acute urinary retention. He was discharged on oral cefdinir and Ortiz catheter. Patient was said to be doing well at home according to his at home. They were being followed by home health . She had an upper respiratory illness the day before admission. On the day of admission, patient started acting confused, developed a fever, was pulling on his Ortiz catheter and suddenly was not able to walk. His vitals in the ED showed blood pressure 153/80, heart rate 109, respiratory rate 19, temperature 101.9F, oxygen sats was 100% on room air. WBC count was 7.3, hemoglobin 11.3, platelet count 404, BMP remarkable for BUN of 13, creatinine 1.13 from previous 0.93, lactic acid was 2.7. UA was slightly cloudy, nitrate negative, leukocyte esterase positive, WBC count 0-5. Rapid influenza screen was positive. Blood cultures and urine cultures were pending. [facility] Medical History Arthritis Betancur's esophagus without dysplasia Bilateral low back pain with sciatica Cancer Diabetes mellitus Difficulty swallowing Erectile dysfunction Former smoker Gastric reflux History of steroid therapy Polymyalgia rheumatica Wears dentures Wears hearing aid Home Medications ondansetron HCl 4 mg tablet 8 mg PO Q8H PRN PRN Nausea 12/06/21 [History Last Taken Unknown] pantoprazole 40 mg tablet,delayed release (Protonix) 40 mg PO BID GERD 12/06/21 [History Last Taken 12/07/21 07:00] prednisone 10 mg tablet 20 mg PO DAILY Check with primary doctor 12/06/21 [History Last Taken Unknown] tamsulosin 0.4 mg capsule 0.4 mg PO QHS urine flow 12/06/21 [History Last Taken Unknown] hydrocodone-homatropine 5 mg-1.5 mg/5 mL oral syrup 5 ml PO Q6H PRN Cough 04/19/22 [History Last Taken Unknown] olanzapine 10 mg tablet (Zyprexa) 10 mg PO DAILY 04/19/22 [History Last Taken Unknown] cefdinir 300 mg capsule 300 mg PO Q12 9 days #18 caps 04/23/22 [Rx Last Taken Unknown] finasteride 5 mg tablet 5 mg PO DAILY 04/28/22 [History Last Taken Unknown] Allergy/AdvReac Type Severity Reaction Status Date / Time No Known Allergies Allergy Verified 04/18/22 22:33 Family History Mother CVA (cerebral vascular accident) Cancer kidney Surgical History History of carpal tunnel release of both wrists History of esophagogastroduodenoscopy (EGD) Social History household members: spouse Smoking Status: Former smoker Tobacco: How many years used: 25 how long ago did patient quit smokin, 0.5ppd second hand exposure: Yes ROS Review of Systems ROS Unobtainable: due to encephalopathy Vital Signs Vital Signs Vital Signs: 04/28/22 21:15 04/28/22 21:40 04/28/22 21:48 Temperature 101.9 F H 102.9 F H 102.8 F H Temperature Source Temporal Oral Oral Pulse Rate 109 H 105 H 109 H Respiratory Rate 19 H 26 H 27 H Respiratory Effort Respiratory Pattern Blood Pressure 153/80 H 143/103 H 143/103 H Blood Pressure Mean 104 116 116 Pulse Ox 100 98 96 Oxygen Delivery Method Room Air Room Air Room Air 04/28/22 22:00 04/28/22 22:19 04/28/22 22:31 Temperature 103.2 F H Temperature Source Oral Pulse Rate 110 H Respiratory Rate 28 H Respiratory Effort Short of Breath Respiratory Pattern Tachypnea Blood Pressure 153/77 H Blood Pressure Mean 102 Pulse Ox 98 94 Oxygen Delivery Method Room Air Room Air 04/28/22 22:53 04/28/22 23:21 Temperature 103.2 F H 102.9 F H Temperature Source Oral Oral Pulse Rate 105 H 96 Respiratory Rate 26 H 20 H Respiratory Effort Respiratory Pattern Blood Pressure 163/96 H 127/79 H Blood Pressure Mean 118 95 Pulse Ox 94 95 Oxygen Delivery Method Room Air Room Air Weight Weight: 86.183 kg Body Mass Index (BMI) 26.4 Physical Exam Narrative Physical exam: General: Alert, confused, oriented to self, obese HEENT: Atraumatic Oral: Moist Mucosa Neck: Supple Lungs: Diminished to auscultation Cardiovascular: HS I+II, regular, no murmurs Abdomen: Bowel Sounds Present, Soft, Non Tender Extremities: Bilateral pedal edema, trace Skin: No rashes, No breakdown Neurological: Grossly intact Psych/Mental Status: Appropriate Results Lab / Micro Data Result Diagrams: 04/28/22 21:55 04/28/22 21:55 Labs: Laboratory Results - last 24 hr 04/28/22 21:55: WBC 7.3, RBC 4.00 L, Hgb 11.3 L, Hct 36.8 L, MCV 92.0, MCH 28.3, MCHC 30.7 L, RDW Std Deviation 51.1 H, RDW Coeff of Nancy 15.4 H, Plt Count 404, MPV 9.1, Neut % (Auto) Not Reportable, Absolute Neuts (auto) 6.6, Absolute Lymphs (auto) 0.22 L, Total Counted 100, Neutrophils % (Manual) 83 H, Band Neutrophils % 1, Lymphocytes % (Manual) 3 L, Monocytes % (Manual) 6, Eosinophils % (Manual) 1, Metamyelocytes % 3 H, Myelocytes % 3 H, Diff Path Review May foll, Platelet Estimate ADEQUATE, RBC Morphology N CYTIC, Polychromasia RARE 04/28/22 21:55: PT 13.0, INR 1.0, APTT 28.2 04/28/22 21:55: Sodium 138, Potassium 4.3, Chloride 102, Carbon Dioxide 29.0, Anion Gap 7, BUN 13, Creatinine 1.12, Estim Creat Clear Calc 56.96, Est GFR (MDRD) Af Amer 81, Est GFR (MDRD) Non-Af 67, BUN/Creatinine Ratio 11.6, Glucose 108 H, Calcium 8.9, Total Bilirubin 0.20, AST 21, ALT 24, Alkaline Phosphatase 70, Total Protein 7.1, Albumin 3.4, Globulin 3.7, Albumin/Globulin Ratio 0.9 04/28/22 21:55: Lactic Acid 2.7 H* 04/28/22 22:10: Urine Color Yellow, Urine Clarity Sl. Cloudy, Urine pH 6.0, Ur Specific [place] 1.010, Urine Protein 30 H, Urine Glucose (UA) Normal, Urine Ketones Negative, Urine Occult Blood 250 H, Urine Nitrite Negative, Urine Bilirubin Negative, Urine Urobilinogen Normal, Ur Leukocyte Esterase 25 H, Urine RBC 50-100 SEEN, Urine WBC 0-5 SEEN, Ur Squamous Epith Cells 0-5 SEEN, Calcium Oxalate Crystal RARE, Amorphous Sediment 1+ URATE, Urine Bacteria 0 SEEN, Urine Mucus 0 SEEN Micro: Microbiology 04/28/22 22:35 Nasal Secretion SARS-CoV-2 & FLU Antigen (Rapid) - Final Influenzae A Radiology Impression Chest X-Ray 04/28/22 22:10 IMPRESSION: 1. No change central line. 2. Minimal patchy opacity right lung base improved compared to the previous exam. Electronically Signed: Myles Mayberry MD at 22:45 EST , Assessment & Plan Assessment/Plan (1) Urinary tract infection: (2) Acute metabolic encephalopathy: (3) Influenza due to influenza virus, type A, human: PLAN: Plan 1. Acute metabolic encephalopathy secondary to acute influenza A, in the setting of recent Klebsiella pneumonia UTI Patient is confused, oriented to self only, continue to monitor 2. Acute influenza A without hypoxia, started on Tamiflu, will continue to monitor 3. Recent Klebsiella pneumoniae UTI, with acute urinary retention, status post Ortiz catheter Discharged on cefdinir, repeat urine cultures are pending, will switch antibiotics to IV ceftriaxone for now 4. Cancer of stomach, on chemotherapy, follows with [facility] oncology 5. Rest of chronic medical conditions including anemia of chronic disease/polymyalgia rheumatica anxiety/depression/chronic insomnia Continue finasteride, olanzapine, chronic prednisone, PPI, Flomax 6. DVT PPx- Heparin SC Total time spent: 75 minutes of which more > 50% was spent in reviewing patient's chart, laboratory investigations, imaging, taking history and physical examining patient and discussing plan of care with at the bedside. Charges/Coding Visit Charges Inpatient E&M: 51899 Init Hosp L3
[2022-04-28] MEDS: Oseltamivir Phosphate 75 MG Capsule PO (23:42)
[2022-04-29] VITALS (9 sets, daily range): BP systolic 115–138; BP diastolic 54–66; PULSE 79–89; RESP 17–20; TEMP 37–38.8; O2SAT 87–94; BMI 26.0
[2022-04-29 02:03] LABS: Reflex Lactate? Y
[2022-04-29 03:16] LABS: Lactic Acid 1.4 mmol/L (0.4-1.9)
[2022-04-29] MEDS: Heparin Injection (Vial) 5,000 UNIT/ML VIAL 5000 UNIT SC ×3 (07:26→21:49)
[2022-04-29] MEDS: Acetaminophen 325 MG Tablet 650 MG PO ×2 (08:41→21:48)
[2022-04-29] MEDS: predniSONE 20 MG Tablet PO (08:42)
[2022-04-29] MEDS: OLANZapine 10 MG Tablet PO (08:42)
[2022-04-29] MEDS: Finasteride 5 MG Tablet PO (08:42)
[2022-04-29] MEDS: Oseltamivir Phosphate 30 MG Capsule PO ×2 (08:42→21:49)
[2022-04-29] MEDS: 0.9% Normal Saline 1,000 ML 150 ML IV (08:42)
[2022-04-29] MEDS: Pantoprazole Sodium 40 MG Tablet PO ×2 (08:42→21:49)
[2022-04-29] MEDS: Ceftriaxone 1 GM/50 ML BAG IV (09:24)
--- NOTE | 2022-04-29 13:10 | PN.HOSP_ITS ---
Subjective Subjective Patient seen and examined. He had no active complaints. He denied fever, chills, cough, chest pain, palpitations, dizziness, nausea, vomiting or diarrhea. Review of systems is otherwise negative. Objective Data Objective Data Vital Signs: Vital Signs Temp Pulse Resp BP Pulse Ox O2 Del Method 101.0 F H 85 18 138/66 H 93 Room Air 04/29/22 10:47 04/29/22 10:47 04/29/22 10:47 04/29/22 10:47 04/29/22 10:47 04/29/22 10:48 Oxygen Delivery Method Room Air Weight: 186 lb 15.232 oz Body Mass Index (BMI) 26.0 Intake & Output: Intake and Output for Last 24 Hours 04/27/22 04/28/22 04/29/22 23:59 23:59 23:59 Intake Total 100 / 100 1590 / 1590 Output Total 1450 / 1450 Balance 100 / 100 140 / 140 Lab / Micro Data Result Diagrams: 04/28/22 21:55 04/28/22 21:55 Labs: Laboratory Results - last 24 hr 04/28/22 21:55: WBC 7.3, RBC 4.00 L, Hgb 11.3 L, Hct 36.8 L, MCV 92.0, MCH 28.3, MCHC 30.7 L, RDW Std Deviation 51.1 H, RDW Coeff of Nancy 15.4 H, Plt Count 404, MPV 9.1, Neut % (Auto) Not Reportable, Absolute Neuts (auto) 6.6, Absolute Lymphs (auto) 0.22 L, Total Counted 100, Neutrophils % (Manual) 83 H, Band Neutrophils % 1, Lymphocytes % (Manual) 3 L, Monocytes % (Manual) 6, Eosinophils % (Manual) 1, Metamyelocytes % 3 H, Myelocytes % 3 H, Diff Path Review May , Platelet Estimate ADEQUATE, RBC Morphology N CYTIC, Polychromasia RARE 04/28/22 21:55: PT 13.0, INR 1.0, APTT 28.2 04/28/22 21:55: Sodium 138, Potassium 4.3, Chloride 102, Carbon Dioxide 29.0, Anion Gap 7, BUN 13, Creatinine 1.12, Estim Creat Clear Calc 56.96, Est GFR (MDRD) Af Amer 81, Est GFR (MDRD) Non-Af 67, BUN/Creatinine Ratio 11.6, Glucose 108 H, Calcium 8.9, Total Bilirubin 0.20, AST 21, ALT 24, Alkaline Phosphatase 70, Total Protein 7.1, Albumin 3.4, Globulin 3.7, Albumin/Globulin Ratio 0.9 04/28/22 21:55: Lactic Acid 2.7 H* 04/28/22 22:10: Urine Color Yellow, Urine Clarity Sl. Cloudy, Urine pH 6.0, Ur Specific [place] 1.010, Urine Protein 30 H, Urine Glucose (UA) Normal, Urine Ketones Negative, Urine Occult Blood 250 H, Urine Nitrite Negative, Urine Bilirubin Negative, Urine Urobilinogen Normal, Ur Leukocyte Esterase 25 H, Urine RBC 50-100 SEEN, Urine WBC 0-5 SEEN, Ur Squamous Epith Cells 0-5 SEEN, Calcium Oxalate Crystal RARE, Amorphous Sediment 1+ URATE, Urine Bacteria 0 SEEN, Urine Mucus 0 SEEN 04/29/22 02:25: Lactic Acid 1.4 Micro: Microbiology 04/28/22 22:35 Nasal Secretion SARS-CoV-2 & FLU Antigen (Rapid) - Final Influenzae A Radiography Diagnostic Testing: Radiology Impression Chest X-Ray 04/28/22 22:10 IMPRESSION: 1. No change central line. 2. Minimal patchy opacity right lung base improved compared to the previous exam. Electronically Signed: Myles Mayberry MD at 22:45 EST , Physical Exam Const alert, oriented x3 and no apparent distress HEENT head/scalp atraumatic, moist oral mucous membranes and oropharynx normal Head and Scalp: normocephalic Mouth: oral and palatal mucosa normal Eyes PERRL, EOMs intact bilaterally and conjunctivae normal Neck no lymphadenopathy, supple and no JVD Resp normal respiratory effort, no retractions, no use of accessory muscles and clear to auscultation bilaterally Cardio regular rate, regular rhythm, S1 normal heart sound, S2 normal heart sound and no murmurs GI normal to inspection, nondistended, normoactive bowel sounds, soft to palpation, non-tender and non-distended Extremity normal to inspection, full ROM and no clubbing, cyanosis or edema Neuro oriented x3, CN's II-XII intact bilaterally, moves all extremities and no focal motor deficits Sensorium / Orientation: awake and alert Coordination / Balance: [id number] test normal Motor Exam: strength 5/5 throughout Psych affect normal Assessment & Plan Assessment/Plan (1) Acute metabolic encephalopathy: (2) Influenza due to influenza virus, type A, human: (3) Urinary tract infection: PLAN: Plan #Acute encephalopathy due to UTI and influenza * patient now more oriented; confusion has resolved * on tamiflu; to complete a 10 day course. * recently had Klebsiella UTI. Now on IV ceftriaxone. * urine cultures pending * #Stomach cancer * follows with [facility] oncology. * on chemotherapy * #Anxiety and depression; on olanzapine #POlymyalgia rheumatica: on prednisone #BPH: on flomax DVT prophylaxis: heparin Charges/Coding Visit Charges Inpatient E&M: 37728 Subs Hosp L2
--- NOTE | 2022-04-29 14:00 | CASEMGMT ---
QUINTON REA readmission note: Prior admission: Admitted 04/19 w/acute klebsiella pneumonia secondary to acute urinary retention. Pt on chemo for carcinoma of the stomach and follows with [facility] oncology. Pt was having difficulty w/urinary retention prior to this admission, went to urologist and was self-cathing. Pt discharged [facility] w/ 04/23 w/ F/C, PO atb's, and [facility]: PT/OT and SN. Current admission: Pt admitted 04/28/22 w/acute met encephalopathy, Influenza A, and UTI. QUINTON REA to room. @ bedside. She states pt has been taking medications as prescribed and has went to appt's as scheduled. His next f/u appt with PCP, [place], is on 05/03 @ 2:20 PM. Pt is active w/[facility]. states they would like to resume HHC w/[facility] and declines wanting list of other HHC options. Order placed for [facility]. inquiring about a Palliative referral. She also asks if ST can work w/pt, stating he was having some coughing when she was feeding him. Dr Samuels notified and orders received for Palliative referral and ST eval. denies having other discharge planning needs at this time. Plan: Home w/family support and [facility]: SN, PT/OT, ST Palliative referral per family request. Juanpablo MURPHY RN, CM
[2022-04-29] MEDS: Tamsulosin HCl 0.4 MG Capsule PO (21:49)
--- NOTE | 2022-04-29 21:51 | NURSING ---
This nurse charted on patency of patients Ortiz catheter but this nurse is unsure if catheter was placed before admission or on admission.
[2022-04-30] VITALS (12 sets, daily range): BP systolic 93–127; BP diastolic 40–97; PULSE 63–83; RESP 18–20; TEMP 36.6–37.5; O2SAT 90–98
[2022-04-30 06:24] LABS: Absolute Lymphocyte Count 1.54 X10^3/uL (0.83-4.51); Basophil# 0.03 X10^3/uL; Basophil% 0.4 % (0-1); Eosinophil# 0.01 X10^3/uL; Eosinophils% 0.1 % (0-5); Hematocrit 38.5 % (40-54); Hemoglobin 11.9 g/dL (13.0-16.5); Lymphocyte # 1.54 X10^3/ul (0.83-4.51); Lymphocyte % 18.9 % (19-41); Mean Corp Hgb Conc 30.9 g/dL (32-36); Mean Corpuscular Hgb 28.5 pg (27.0-32.0); Mean Corpuscular Volume 92.1 fL (80-94); Monocyte# 0.49 X10^3/uL; NRBC Flagged by Analyzer 0 % (0-5); Neutrophil # 6.02 X10^3/uL (2.7-7.7); Neutrophil % 73.9 % (47-70); Platelet Count 301 K/mm3 (150-450); RBC Distribution Width CV 15.9 % (11.6-14.6); RBC Distribution Width SD 53.1 fl (35.1-43.9); Red Blood Count 4.18 M/mm3 (4.6-6.2); White Blood Count 8.2 K/mm3 (4.4-11.0)
[2022-04-30 06:55] LABS: Anion Gap 4 (5-15); BUN 16 mg/dL (7-18); BUN/Creat Ratio 15.8 RATIO (10-20); Chloride 108 mmol/L (98-107); Creatinine, Serum 1.01 mg/dL (0.70-1.30); EST Glomerular Filtration Rate 76 mL/min (>60); Est Glom Filt Rate - Afr Amer 92 mL/min (>60); Estimated Creatinine Clearance 63.16 ml/min; Glucose 95 mg/dL (74-106); Potassium 4.1 mmol/L (3.5-5.1); Sodium Level 140 mmol/L (136-145)
[2022-04-30] MEDS: Heparin Injection (Vial) 5,000 UNIT/ML VIAL 5000 UNIT SC ×3 (06:55→20:37)
[2022-04-30] MEDS: OLANZapine 10 MG Tablet PO (08:48)
[2022-04-30] MEDS: Oseltamivir Phosphate 30 MG Capsule PO ×2 (08:48→20:36)
[2022-04-30] MEDS: predniSONE 20 MG Tablet PO (08:48)
[2022-04-30] MEDS: Finasteride 5 MG Tablet PO (08:48)
[2022-04-30] MEDS: Pantoprazole Sodium 40 MG Tablet PO ×2 (08:48→20:36)
[2022-04-30 09:39] LABS: Pathologist Review Reviewed
[2022-04-30] MEDS: Ceftriaxone 1 GM/50 ML BAG IV (10:46)
[2022-04-30] MEDS: 0.9% Saline Lock 10 ML Syringe IV (10:46)
--- NOTE | 2022-04-30 11:18 | PN.HOSP_ITS ---
Subjective Subjective Patient seen and examined. was by his bedside. She was trying to help him eat breakfast, but stated that he was having difficulty swallowing. He had only been able to eat a grape, but was choking when trying to eat anything else. Speech therapy is on board. Review of systems was otherwise negative. Objective Data Objective Data Vital Signs: Vital Signs Temp Pulse Resp BP Pulse Ox O2 Del Method O2 Flow Rate 99 F 69 18 93/50 L 94 Nasal Cannula 2 04/30/22 09:45 04/30/22 09:45 04/30/22 09:45 04/30/22 09:45 04/30/22 10:52 04/30/22 10:52 04/30/22 10:52 Oxygen Flow Rate (L/min) 2 Oxygen Delivery Method Nasal Cannula Weight: 186 lb 15.232 oz Body Mass Index (BMI) 26.0 Intake & Output: Intake and Output for Last 24 Hours 04/28/22 04/29/22 04/30/22 23:59 23:59 23:59 Intake Total 100 / 100 2590 / 2590 50 / 50 Output Total 2250 / 2600 350 / 350 Balance 100 / 100 340 / -10 -300 / -300 Lab / Micro Data Result Diagrams: 04/30/22 06:08 04/30/22 06:08 Labs: Laboratory Results - last 24 hr 04/28/22 21:55: Diff Path Review Reviewed 04/30/22 06:08: WBC 8.2, RBC 4.18 L, Hgb 11.9 L, Hct 38.5 L, MCV 92.1, MCH 28.5, MCHC 30.9 L, RDW Std Deviation 53.1 H, RDW Coeff of Nancy 15.9 H, Plt Count 301, MPV 9.0, Immature Gran % (Auto) 0.700, Neut % (Auto) 73.9 H, Lymph % (Auto) 18.9 L, [place] % (Auto) 6.0, Eos % (Auto) 0.1, Baso % (Auto) 0.4, Absolute Neuts (auto) 6.0, Absolute Lymphs (auto) 1.54, Nucleated RBC % 0 04/30/22 06:08: Sodium 140, Potassium 4.1, Chloride 108 H, Carbon Dioxide 28.0, Anion Gap 4 L, BUN 16, Creatinine 1.01, Estim Creat Clear Calc 63.16, Est GFR (MDRD) Af Amer 92, Est GFR (MDRD) Non-Af 76, BUN/Creatinine Ratio 15.8, Glucose 95, Calcium 9.0 Micro: Microbiology 04/28/22 22:10 Urine Catheter - Ortiz Urine Culture - Final Presumptive C albicans 04/28/22 22:35 Nasal Secretion SARS-CoV-2 & FLU Antigen (Rapid) - Final Influenzae A Physical Exam Const alert, oriented x3 and no apparent distress HEENT head/scalp atraumatic and moist oral mucous membranes Head and Scalp: normocephalic Mouth: oral and palatal mucosa normal Eyes PERRL, EOMs intact bilaterally and conjunctivae normal Neck no lymphadenopathy and supple Resp Resp Narrative: mildly diminished breath sounds bibasally, no wheezes or crackles. On 2L of oxygen. Cardio regular rate, regular rhythm, S1 normal heart sound, S2 normal heart sound and no murmurs GI normal to inspection, nondistended, normoactive bowel sounds, soft to palpation, non-tender and non-distended Extremity normal to inspection, full ROM and no clubbing, cyanosis or edema Neuro oriented x3, CN's II-XII intact bilaterally, moves all extremities and no focal motor deficits Sensorium / Orientation: awake and alert Motor Exam: strength 5/5 throughout Psych affect normal Assessment & Plan Assessment/Plan (1) Acute metabolic encephalopathy: (2) Influenza due to influenza virus, type A, human: (3) Urinary tract infection: PLAN: Plan #Acute encephalopathy due to UTI and influenza * patient now more oriented; * on tamiflu; to complete a 10 day course. * recently had Klebsiella UTI. Now on IV ceftriaxone. * urine cultures pending * #Dysphagia * was choking on his breakfast this morning. * speech therapy on board. Will await their recommendations * #Hypoxia due to influenza infection * on 2L of oxygen. Doesnt wear oxygen at home * titrate oxygen to maintain sats >905 * breathing treatment with bronchodilators. * #Stomach cancer * follows with [facility] oncology. * on chemotherapy * #Anxiety and depression; on olanzapine #POlymyalgia rheumatica: on prednisone #BPH: on flomax DVT prophylaxis: heparin Charges/Coding Visit Charges Inpatient E&M: 98576 Subs Hosp L2 Reason for Visit Reason for Visit: Diagnoses Metabolic encephalopathy (04/28/22) Influenza due to other identified influenza virus with other respiratory manifestations (04/28/22) Urinary tract infection, site not specified (04/28/22)
[2022-04-30] MEDS: Tamsulosin HCl 0.4 MG Capsule PO (20:36)
[2022-04-30] MEDS: guaiFENesin 1,200 MG Tablet 1200 MG PO (20:36)
[2022-04-30] MEDS: Acetaminophen 325 MG Tablet 650 MG PO (22:41)
[2022-04-30] MEDS: MELATONIN 3 MG TABLET PO (22:41)
[2022-05-01] MEDS: QUEtiapine 25 MG Tablet PO ×2 (00:55→20:12)
[2022-05-01 03:30] VITALS: BP 111/49; PULSE 73; RESP 18; TEMP 37.2; O2SAT 94
[2022-05-01] MEDS: Heparin Injection (Vial) 5,000 UNIT/ML VIAL 5000 UNIT SC ×3 (05:33→20:11)
[2022-05-01 06:05] LABS: Absolute Lymphocyte Count 1.82 X10^3/uL (0.83-4.51); Absolute Neutrophil Count 8.3 X10^3/uL (2.0-7.7); Basophil# 0.02 X10^3/uL; Basophil% 0.2 % (0-1); Hematocrit 36.4 % (40-54); Hemoglobin 11.3 g/dL (13.0-16.5); Lymphocyte # 1.82 X10^3/ul (0.83-4.51); Lymphocyte % 16.7 % (19-41); Mean Corpuscular Hgb 28.5 pg (27.0-32.0); Mean Corpuscular Volume 91.9 fL (80-94); Mean Platelet Vol. 9.4 fl (6.2-12.0); Monocyte# 0.67 X10^3/uL; Monocyte% 6.2 % (0-10); NRBC Flagged by Analyzer 0 % (0-5); Neutrophil # 8.31 X10^3/uL (2.7-7.7); Neutrophil % 76.3 % (47-70); Platelet Count 320 K/mm3 (150-450); RBC Distribution Width CV 15.7 % (11.6-14.6); RBC Distribution Width SD 51.5 fl (35.1-43.9); Red Blood Count 3.96 M/mm3 (4.6-6.2); White Blood Count 10.9 K/mm3 (4.4-11.0)
[2022-05-01 06:35] LABS: Anion Gap 9 (5-15); BUN 23 mg/dL (7-18); BUN/Creat Ratio 18.3 RATIO (10-20); Calcium,Total 8.9 mg/dL (8.5-10.1); Chloride 104 mmol/L (98-107); Creatinine, Serum 1.26 mg/dL (0.70-1.30); EST Glomerular Filtration Rate 59 mL/min (>60); Est Glom Filt Rate - Afr Amer 71 mL/min (>60); Estimated Creatinine Clearance 50.63 ml/min; Glucose 119 mg/dL (74-106); Potassium 3.5 mmol/L (3.5-5.1); Sodium Level 139 mmol/L (136-145)
[2022-05-01] MEDS: Finasteride 5 MG Tablet PO (08:10)
[2022-05-01] MEDS: Oseltamivir Phosphate 30 MG Capsule PO ×2 (08:10→20:13)
[2022-05-01] MEDS: OLANZapine 10 MG Tablet PO (08:10)
[2022-05-01] MEDS: predniSONE 20 MG Tablet PO (08:10)
[2022-05-01] MEDS: Pantoprazole Sodium 40 MG Tablet PO ×2 (08:10→20:12)
[2022-05-01 08:53] VITALS: BP 139/52; PULSE 76; RESP 18; TEMP 37.4; O2SAT 92
[2022-05-01] MEDS: guaiFENesin 1,200 MG Tablet 1200 MG PO ×2 (09:55→20:13)
[2022-05-01] MEDS: Ceftriaxone 1 GM/50 ML BAG IV (09:55)
[2022-05-01] MEDS: 0.9% Saline Lock 10 ML Syringe IV (09:56)
--- NOTE | 2022-05-01 11:10 | PN.HOSP_ITS ---
Reason for Visit Reason for Visit: Diagnoses Metabolic encephalopathy (04/28/22) Influenza due to other identified influenza virus with other respiratory manifestations (04/28/22) Urinary tract infection, site not specified (04/28/22) Subjective Subjective Patient seen and examined. was by his bedside. His speech and swallowing has improved, and he is able to tolerate a diet. He has been having diarrhea since yesterday. Review of systems is otherwise negative. Objective Data Objective Data Vital Signs: Vital Signs Temp Pulse Resp BP Pulse Ox O2 Del Method O2 Flow Rate 99.4 F H 76 18 139/52 H 92 Room Air 2 05/01/22 08:53 05/01/22 08:53 05/01/22 08:53 05/01/22 08:53 05/01/22 08:53 05/01/22 09:05 04/30/22 20:30 Oxygen Flow Rate (L/min) 2 Oxygen Delivery Method Room Air Weight: 186 lb 15.232 oz Body Mass Index (BMI) 26.0 Intake & Output: Intake and Output for Last 24 Hours 04/29/22 04/30/22 05/01/22 23:59 23:59 23:59 Intake Total 2590 / 2590 50 / 50 50 / 50 Output Total 2250 / 2600 1100 / 1100 200 / 200 Balance 340 / -10 -1050 / -1050 -150 / -150 Lab / Micro Data Result Diagrams: 05/01/22 05:38 05/01/22 05:38 Labs: Laboratory Results - last 24 hr 05/01/22 05:38: WBC 10.9, RBC 3.96 L, Hgb 11.3 L, Hct 36.4 L, MCV 91.9, MCH 28.5, MCHC 31.0 L, RDW Std Deviation 51.5 H, RDW Coeff of Nancy 15.7 H, Plt Count 320, MPV 9.4, Immature Gran % (Auto) 0.600, Neut % (Auto) 76.3 H, Lymph % (Auto) 16.7 L, [place] % (Auto) 6.2, Eos % (Auto) 0.0, Baso % (Auto) 0.2, Absolute Neuts (auto) 8.3 H, Absolute Lymphs (auto) 1.82, Nucleated RBC % 0 05/01/22 05:38: Sodium 139, Potassium 3.5, Chloride 104, Carbon Dioxide 26.0, Anion Gap 9, BUN 23 H, Creatinine 1.26, Estim Creat Clear Calc 50.63, Est GFR (MDRD) Af Amer 71, Est GFR (MDRD) Non-Af 59 L, BUN/Creatinine Ratio 18.3, Glucose 119 H, Calcium 8.9 Micro: Microbiology 05/01/22 01:35 Stool C. difficile GDH Antigen & Toxins - Final Toxigenic C. difficile 05/01/22 01:35 Stool C. difficile DNA Amplification - Final 04/28/22 22:10 Blood Culture (Wb) - Port Blood Culture - Preliminary No growth in 48 hours. 04/28/22 21:55 Blood Culture (Wb) - Anticubital Right Blood Culture - Preliminary No growth in 48 hours. 05/01/22 01:35 Stool Enteric Bacteriology - Final 04/28/22 22:10 Urine Catheter - Ortiz Urine Culture - Final Presumptive C albicans 04/28/22 22:35 Nasal Secretion SARS-CoV-2 & FLU Antigen (Rapid) - Final Influenzae A Physical Exam Const alert, oriented x3 and no apparent distress HEENT head/scalp atraumatic, moist oral mucous membranes and oropharynx normal Head and Scalp: normocephalic Mouth: oral and palatal mucosa normal Eyes PERRL, EOMs intact bilaterally and conjunctivae normal Neck no lymphadenopathy, supple and no JVD Resp normal respiratory effort, no retractions, no use of accessory muscles and clear to auscultation bilaterally Resp Narrative: mildly diminished breath sounds bibasally, no wheezes or crackles. On room air Cardio regular rate, regular rhythm, S1 normal heart sound, S2 normal heart sound and no murmurs GI normal to inspection, nondistended, normoactive bowel sounds, soft to palpation, non-tender and non-distended Extremity normal to inspection, full ROM and no clubbing, cyanosis or edema Neuro oriented x3, CN's II-XII intact bilaterally, moves all extremities and no focal motor deficits Sensorium / Orientation: awake and alert Coordination / Balance: [id number] test normal Motor Exam: strength 5/5 throughout Psych affect normal Assessment & Plan Assessment/Plan (1) Acute metabolic encephalopathy: (2) Influenza due to influenza virus, type A, human: (3) Urinary tract infection: PLAN: Plan #Acute encephalopathy due to UTI and influenza * resolved. On tamiflu. to finish a 10 day course * on IV ceftriaxone * urine culture grew presumptive C albicans. * * #Dysphagia * was choking on his breakfast this morning. * speech therapy on board. His choking has improved markedly. * on modified diet per speech therapy. * #C Diff infection * started having diarrhea yesterday * C Diff screen positive for both toxin and antigen * started on PO vancomycin 125mg qid x 10 days * #Hypoxia due to influenza infection * now on room air. * titrate oxygen to maintain sats .90% * * #Stomach cancer * follows with [facility] oncology. * on chemotherapy * #Anxiety and depression; on olanzapine #POlymyalgia rheumatica: on prednisone #BPH: on flomax DVT prophylaxis: heparin Disposition: anticipate dc within the next 24-48 hours. Charges/Coding Visit Charges Inpatient E&M: 11472 Subs Hosp L2
[2022-05-01] MEDS: Vancomycin 125 MG/5 ML Susp PO.SYRINGE PO ×3 (12:25→23:30)
[2022-05-01 14:41] VITALS: BP 100/54; PULSE 68; RESP 16; TEMP 36.9; O2SAT 93
[2022-05-01] MEDS: Ensure Plus High Protein 120 ML LIQUID PO ×3 (15:02→20:13)
[2022-05-01 20:07] VITALS: BP 126/63; PULSE 73; RESP 18; TEMP 36.5; O2SAT 95
[2022-05-01] MEDS: MELATONIN 3 MG TABLET PO (20:12)
[2022-05-01] MEDS: Acetaminophen 325 MG Tablet 650 MG PO (20:13)
[2022-05-01] MEDS: Tamsulosin HCl 0.4 MG Capsule PO (20:13)
[2022-05-01 23:32] VITALS: BP 156/69; PULSE 58; RESP 18; TEMP 36.6; O2SAT 97
[2022-05-02 04:59] VITALS: BP 138/40; PULSE 54; RESP 18; TEMP 36.6; O2SAT 94
[2022-05-02] MEDS: Heparin Injection (Vial) 5,000 UNIT/ML VIAL 5000 UNIT SC (05:03)
[2022-05-02] MEDS: Vancomycin 125 MG/5 ML Susp PO.SYRINGE PO ×2 (05:04→12:05)
[2022-05-02 05:31] LABS: Hematocrit 33.4 % (40-54); Hemoglobin 10.3 g/dL (13.0-16.5); Mean Corp Hgb Conc 30.8 g/dL (32-36); Mean Corpuscular Hgb 28.1 pg (27.0-32.0); RBC Distribution Width CV 15.3 % (11.6-14.6); RBC Distribution Width SD 50.4 fl (35.1-43.9); Red Blood Count 3.67 M/mm3 (4.6-6.2); White Blood Count 7.2 K/mm3 (4.4-11.0)
[2022-05-02 05:32] LABS: Absolute Lymphocyte Count 1.67 X10^3/uL (0.83-4.51); Absolute Neutrophil Count 4.9 X10^3/uL (2.0-7.7); Basophil# 0.02 X10^3/uL; Basophil% 0.3 % (0-1); Eosinophil# 0.01 X10^3/uL; Eosinophils% 0.1 % (0-5); Lymphocyte # 1.67 X10^3/ul (0.83-4.51); Lymphocyte % 23.2 % (19-41); Mean Platelet Vol. 9.5 fl (6.2-12.0); Monocyte# 0.53 X10^3/uL; Monocyte% 7.4 % (0-10); NRBC Flagged by Analyzer 0 % (0-5); Neutrophil # 4.92 X10^3/uL (2.7-7.7); Neutrophil % 68.3 % (47-70); Platelet Count 263 K/mm3 (150-450)
[2022-05-02 05:54] LABS: Anion Gap 4 (5-15); BUN 25 mg/dL (7-18); BUN/Creat Ratio 27.8 RATIO (10-20); Calcium,Total 8.8 mg/dL (8.5-10.1); Chloride 109 mmol/L (98-107); EST Glomerular Filtration Rate 87 mL/min (>60); Est Glom Filt Rate - Afr Amer 105 mL/min (>60); Estimated Creatinine Clearance 70.88 ml/min; Glucose 122 mg/dL (74-106); Sodium Level 141 mmol/L (136-145)
[2022-05-02 09:31] VITALS: BP 98/61; PULSE 69; RESP 18; TEMP 36.6; O2SAT 94
[2022-05-02] MEDS: Oseltamivir Phosphate 30 MG Capsule PO (09:47)
[2022-05-02] MEDS: predniSONE 20 MG Tablet PO (09:47)
[2022-05-02] MEDS: Ceftriaxone 1 GM/50 ML BAG IV (09:47)
[2022-05-02] MEDS: OLANZapine 10 MG Tablet PO (09:47)
[2022-05-02] MEDS: guaiFENesin 1,200 MG Tablet 1200 MG PO (09:47)
[2022-05-02] MEDS: Pantoprazole Sodium 40 MG Tablet PO (09:47)
[2022-05-02] MEDS: Finasteride 5 MG Tablet PO (09:47)
[2022-05-02] MEDS: Ensure Plus High Protein 120 ML LIQUID PO (09:54)
[2022-05-02 09:55] VITALS: O2SAT 93
[2022-05-02 10:43] VITALS: O2SAT 91; O2SAT 94
--- NOTE | 2022-05-02 11:47 | DS.PCM_ITS ---
Providers Date of Admission: 04/28/22 Date of Discharge: 05/02/22 Primary Care Physician: Dr. Cecelia Villasenor, DO Reason For Visit: CONFUSION Diagnosis Discharge Diagnosis (1) Acute metabolic encephalopathy: Status: Resolved Code(s): G93.41 - Metabolic encephalopathy (2) Influenza due to influenza virus, type A, human: Status: Acute Code(s): J10.1 - Influenza due to other identified influenza virus with other respiratory manifestations (3) Urinary tract infection: Status: Deleted Code(s): N39.0 - Urinary tract infection, site not specified Plan #Acute encephalopathy due to UTI and influenza * resolved. On tamiflu. to finish a 10 day course * on IV ceftriaxone * urine culture grew presumptive C albicans. * * #Dysphagia * was choking on his breakfast this morning. * speech therapy on board. His choking has improved markedly. * on modified diet per speech therapy. * #C Diff infection * started having diarrhea yesterday * C Diff screen positive for both toxin and antigen * started on PO vancomycin 125mg qid x 10 days * #Hypoxia due to influenza infection * now on room air. * titrate oxygen to maintain sats .90% * * #Stomach cancer * follows with [facility] oncology. * on chemotherapy * #Anxiety and depression; on olanzapine #POlymyalgia rheumatica: on prednisone #BPH: on flomax DVT prophylaxis: heparin Disposition: anticipate dc within the next 24-48 hours. Medications at Discharge Home Medications ondansetron HCl 4 mg tablet 8 mg PO Q8H PRN PRN Nausea 12/06/21 pantoprazole 40 mg tablet,delayed release (Protonix) 40 mg PO BID GERD 12/06/21 prednisone 10 mg tablet 20 mg PO DAILY Check with primary doctor 12/06/21 tamsulosin 0.4 mg capsule 0.4 mg PO QHS urine flow 12/06/21 hydrocodone-homatropine 5 mg-1.5 mg/5 mL oral syrup 5 ml PO Q6H PRN Cough 04/19/22 olanzapine 10 mg tablet (Zyprexa) 10 mg PO DAILY 04/19/22 finasteride 5 mg tablet 5 mg PO DAILY 04/28/22 oseltamivir 30 mg capsule 30 mg PO BID #2 caps 05/02/22 vancomycin 25 mg/mL oral solution (Firvanq) 125 mg (5 mL) PO Q6 9 days #180 mL 05/02/22 Hospital Course Operations None Procedures None Summary of Care Provided Minutes Spent on Discharge: 45 Hospital Course: Patient is a 81-year-old male with past medical history as outlined was admitted through the ED on 04/28/2022 with a complaint of confusion which have been going on for 1 day. Patient had recently been discharged after being admitted for UTI and pneumonia was found to have Klebsiella. Urine cultures. He was discharged on oral cefdinir. He subsequently started having a fever and was also confused and was pulling on his Ortiz catheter. He was also having difficulty ambulating. Of note his had had a respiratory infection just prior to his symptoms starting. On admission in the ED urinalysis showed evidence of UTI still with positive leukocyte esterase. Influenza screen was also positive. He was admitted and managed for acute encephalopathy likely due to influenza infection. He was started on Tamiflu. His symptoms subsequently improved and his mentation improved. Hospital course was complicated by diarrhea and patient tested positive for C. difficile. He was therefore commenced on p.o. vancomycin 125 mg 6 hourly. Patient also had difficulty with swallowing and was seen by speech therapy. He apparently did have known dysphagia and his diet was modified as per speech therapy recommendation. He did complete a 5-day course of IV ceftriaxone for UTI. Patient's symptoms improved and his diarrhea resolved. He was discharged 05/02/2022. He is to follow-up with his PCP within 1 to 2 weeks. Patient seen and examined prior to discharge. He felt well and had no active complaints. He had not had any more diarrhea since yesterday. Labs and vitals reviewed. Home medication reviewed and reconciled. Physical Exam Const alert, oriented x3 and no apparent distress General Appearance: cooperative and comfortable Orientation / Consciousness: awake Exam Limitations: no limitations HEENT normocephalic, head/scalp atraumatic, hearing grossly normal bilaterally, moist oral mucous membranes and oropharynx normal Mouth: oral and palatal mucosa normal Eyes PERRL, EOMs intact bilaterally and conjunctivae normal Neck no lymphadenopathy, supple and no JVD Resp normal respiratory effort, no retractions, no use of accessory muscles and clear to auscultation bilaterally Resp Narrative: mildly diminished breath sounds bibasally, no wheezes or crackles. On room air Cardio regular rate, regular rhythm, S1 normal heart sound, S2 normal heart sound and no murmurs GI normal to inspection, nondistended, normoactive bowel sounds, soft to palpation, non-tender and non-distended Extremity normal to inspection, full ROM and no clubbing, cyanosis or edema Skin no rashes or lesions noted Neuro oriented x3, CN's II-XII intact bilaterally, moves all extremities and no focal motor deficits Sensorium / Orientation: awake and alert Coordination / Balance: [id number] test normal Motor Exam: strength 5/5 throughout Psych affect normal Medical Records Data Medical Nutrition Assessment Dietitian: Malnutrition Criteria Met Start: 05/01/22 11:41 Freq: Status: Active Protocol: Document 05/01/22 11:41 AG (Rec: 05/01/22 11:41 [id number]) Nutrition Malnutrition Evidence of Malnutrition Exists Yes Malnutrition (moderate): Acute Illness/Injury Evidenced By Suboptimal Energy Intake ( Moderate),Weight Loss ( Moderate) Clinical Problem Acute Disease or Injury Related Malnutrition Etiology moderate acute malnutrition related to decreased appetite w/ acute illness, difficulty swallowing Signs/Symptoms as evidenced by estimated PO intake meeting ~75% of estimated energy needs x 1 week; unintentional wt loss of 3#/1.6% x 1 week Status Active Problem Recommendation Dietitian Recommendations/Changes regular diet- texture/ consistency per [employer] TUBE BENDER; will add 120mL Ensure Plus High Protein 4x/day w/ medpass given evidence of acute malnutrition Weight / BMI Weight Weight: 186 lb 15.232 oz Body Mass Index (BMI) 26.0 ABG / Lab / Microbiology Data Result Diagrams: 05/02/22 05:16 05/02/22 05:16 Laboratory: Laboratory Results - last 24 hr 05/02/22 05:16: WBC 7.2, RBC 3.67 L, Hgb 10.3 L, Hct 33.4 L, MCV 91.0, MCH 28.1, MCHC 30.8 L, RDW Std Deviation 50.4 H, RDW Coeff of Nancy 15.3 H, Plt Count 263, MPV 9.5, Immature Gran % (Auto) 0.700, Neut % (Auto) 68.3, Lymph % (Auto) 23.2, [place] % (Auto) 7.4, Eos % (Auto) 0.1, Baso % (Auto) 0.3, Absolute Neuts (auto) 4.9, Absolute Lymphs (auto) 1.67, Nucleated RBC % 0 05/02/22 05:16: Sodium 141, Potassium 4.0, Chloride 109 H, Carbon Dioxide 28.0, Anion Gap 4 L, BUN 25 H, Creatinine 0.90, Estim Creat Clear Calc 70.88, Est GFR (MDRD) Af Amer 105, Est GFR (MDRD) Non-Af 87, BUN/Creatinine Ratio 27.8 H, Glucose 122 H, Calcium 8.8 Microbiology: Microbiology 05/01/22 01:35 Stool C. difficile GDH Antigen & Toxins - Final Toxigenic C. difficile 05/01/22 01:35 Stool C. difficile DNA Amplification - Final 04/28/22 22:10 Blood Culture (Wb) - Port Blood Culture - Preliminary No growth in 48 hours. 04/28/22 21:55 Blood Culture (Wb) - Anticubital Right Blood Culture - Preliminary No growth in 48 hours. 05/01/22 01:35 Stool Enteric Bacteriology - Final 04/28/22 22:10 Urine Catheter - Ortiz Urine Culture - Final Presumptive C albicans 04/28/22 22:35 Nasal Secretion SARS-CoV-2 & FLU Antigen (Rapid) - Final Influenzae A D/C Instructions Discharge Diet: Low fat / Low cholesterol Discharge Activity: Return to Normal Activity Weight Bearing Status: Weight bearing as tolerated Call your doctor if you observe: Fever of 101 or Higher, Shortness of breath, Dizziness, Swelling in the ankles, Chest pain and - (diarrhea) Meaningful Use Info Meaningful Use Diagnoses (Choose all that apply): None applicable Discharge Plan Admission Admit Date/Time: 04/28/22 23:13 Primary Reason for Your Visit: UTI, influenza, C diff infection Attending Provider: Melia Samuels Primary Care Provider: Cecelia Villasenor Consulting Providers: Nany Monge Instructions Patient Instructions: C diff, ED Influenza (Adult) Discharge Orders/Prescriptions Prescriptions: New oseltamivir 30 mg Capsule 30 mg PO BID Qty: 2 0RF Firvanq 25 mg/mL Recon Soln 125 mg PO Q6 9 Days Qty: 180 0RF Continued prednisone 10 mg tablet 20 mg PO DAILY Label Comments: TAKE 2 TABLETS BY MOUTH ONCE DAILY ondansetron HCl 4 mg tablet 8 mg PO Q8H PRN PRN (Reason: Nausea) Label Comments: TAKE 1 TABLET BY MOUTH EVERY 8 HOURS NEEDED FOR NAUSEA AND VOMITING pantoprazole [Protonix] 40 mg Tablet,Delayed Release (Dr/Ec) 40 mg PO BID tamsulosin 0.4 mg capsule 0.4 mg PO QHS Label Comments: TAKE 1 CAPSULE BY MOUTH ONCE DAILY AT BEDTIME olanzapine [Zyprexa] 10 mg Tablet 10 mg PO DAILY hydrocodone-homatropine 5-1.5 mg/5 mL syrup 5 ml PO Q6H PRN (Reason: Cough) Label Comments: TAKE 5 ML BY MOUTH EVERY 6 HOURS NEEDED UP TO 7 DAYS finasteride 5 mg tablet 5 mg PO DAILY Discontinued cefdinir 300 mg Capsule 300 mg PO Q12 9 Days Qty: 18 0RF Referrals / Follow Up: Cecelia Villasenor DO [Primary Care Provider] - 05/03/22 2:20 pm (as previously scheduled) Disposition Disposition (needs filled in before D/C Order can be placed): Home, Self Care Charges/Coding Visit Charges Inpatient E&M: 68603 Disch Hosp >30min
--- NOTE | 2022-05-02 13:09 | CASEMGMT ---
QUINTON REA Follow-up: Pt out of the room for testing. Pt's present. Reviewed discharge plan including resumption of home [place] services. Pt's asked about possible home health aide services. Explained that these may be available since pt is to receive skilled services but would need to verify with [facility]. Pt's states she thinks they will be fine and will ask later if decided would be beneficial. Call placed to Deja at [facility] and notified of pt's discharge and possible SOAKER need at a future date. Contacted Neil Valero for cost of prescriptions. Verified with Kristyn that oseltamivir will be $16.70 and Firvanq will be $162.61. These were provided to pt's who states this is affordable and denies any concerns with paying. No additional needs identified at this time. Molly Carrasquillo RN CM
--- NOTE | 2022-05-02 14:22 | SP.MBSS_ITS ---
Modified Barium Swallow - Patient Information Study Date: 05/02/22 Study Time: 13:00 Direct Billable Minutes: 112 Total Minutes procedure & reportin Diagnosis: Infectious encephalopathy (G93.49), Influenza A (J10.1) Referring Physician: Melia Samuels Reason for Referral: Objectively assess swallow function, assess risk for aspiration, and determine recommendations for least restrictive diet textures and compensatory strategies to improve safety of swallow. Medical History: José Luis Gonsalez is a 81 M who presented to [facility] ED 04/28/2021 with confusion, fever, and increased difficulty walking in the past day before presentation. He has past medical history of polymyalgia rheumatica on chronic prednisone, GERD with Betancur's esophagus, BPH, carcinoma of the stomach, on chemotherapy, follows with [facility] oncology. Patient was recently discharged on 04/23/2022 after admission for acute Klebsiella pneumonia and UTI secondary to acute urinary retention. During the stay, he was recommended for MBSS by speech therapy to assess concerns for aspiration. MBSS revealed mild oropharyngeal dysphagia and recommended Regular textures / Thin liquids with No Straws, Small Bites, Small Sips - HARD/EFFORTFUL SWALLOWS, Slow Rate, Multiple Swallows - DOUBLE SWALLOWS ON EACH SIP, Sitting upright, Remain sitting upright for 30 minutes after PO intake Supervision: 1:1 Close Supervision - ok to provide supervision if present. HEAVY EQUIPMENT FIELD MECHANIC followed during current POC due to frequent coughing, both with and without oral intake. HEAVY EQUIPMENT FIELD MECHANIC recommended repeat MBSS today due to worsening lung sounds in the lung bases bilaterally and frequent coughing with administration of medications in applesauce and thin liquids. Current Diet Ordered: Soft and bite size textures / Thin liquids Respiratory Status: Oxygenating on Room Air - Penetration-Aspiration Scale Penetration-Aspiration Scale: OBJECTIVE ASSESSMENT OF SWALLOW FUNCTION (QUANTITATIVE ? PER TRIAL): PENETRATION / ASPIRATION SCALE (ALLAN): 1 = does not enter airway 2 = enters airway/above vocal folds/ejected 3 = enters airway/above vocal folds/not ejected 4 = enters airway/contacts vocal folds/ejected 5 = enters airway/contacts vocal folds/not ejected 6 = enters airway/below vocal folds/ejected 7 = enters airway/below vocal folds/not ejected despite effort 8 = enters airway/below vocal folds/no effort VIDEOFLOROSCOPIC SCALE SCORE (ALLAN): Grade I = aspiration of material that has penetrated into the laryngeal vestibule, intact cough reflex Grade II = aspiration < 10 % of the bolus, intact cough reflex Grade III = aspiration of < 10 % of the bolus, reduced cough reflex or aspiration of > 10 % of the bolus, intact cough reflex Grade IV = aspiration of > 10 % of the bolus, reduced cough reflex - Penetration-Aspiration Scale Score Thin Liquid via teaspoon Result: 3= enters airways/above vocal folds/not ejected Thin Liquid via small single sip from cup Result: 7= enters airways/below vocal folds/not ejected despite effort Comment: Pt claimed use of a hard swallow, HEAVY EQUIPMENT FIELD MECHANIC cued re-swallow after coughing episode. [place] Thick Liquid via small single sip from cup Result: 3= enters airways/above vocal folds/not ejected - Post prandial aspiration of residues of previous trial. Honey Thick Liquid via small single sip from cup Result: 7= enters airways/below vocal folds/not ejected despite effort - Post prandial aspiration of residues of previous trial. Pudding via teaspoon Result: 1= does not enter airway 1/4 Cookie with esophageal screen Result: 1= does not enter airway Thin Liquid via small single sip from cup Chin tuck Result: 7= enters airways/below vocal folds/not ejected despite effort - Poor execution of chin tuck due to hx of injury to neck per pt Thin Liquid via teaspoon Effortful swallow Result: 5= enters airways/contacts vocal folds/not ejected - Cued cough and re- swallow after trial [place] Thick Liquid via teaspoon Result: 3= enters airways/above vocal folds/not ejected - Post prandial aspiration of residues of previous trial. [place] Thick Liquid via teaspoon Effortful swallow with Cough and Re- swallow Result: 2= enter airway/above vocal folds/ejected - Post prandial aspiration of residues of previous trial. - Oral Phase Labial Seal: No Labial Escape Tongue Control During Bolus Hold: Posterior escape of less than half of bolus Bolus Preparation/Mastication: Slow prolonged chewing/mashing with complete recollection Bolus Transport/Lingual Motion: Repetitive/disorganized tongue motion Oral Residue: Majority of bolus remaining - piecemeal deglutition of pudding and certain liquid trials - Pharyngeal Phase Initiation of Pharyngeal Swallow: Bolus head at posterior laryngeal surgace of epiglottis Laryngeal Elevation: Partial superior movement thyroid cart/partial apprx aryt- epig petiole Anterior Hyoid Excursion: Partial anterior movement Epiglottic Movement: Partial inversion Laryngeal Vestibule Closure at Height of Swallow: Incomplete; narrow column of air/contrast in laryngeal vestibule Pharyngeal Stripping Wave: Present - diminished Pharyngoesophageal Segment Opening: Parital distension and partial duration; parital obstruction of flow Tongue Base Retraction: Wide column of contrast between tongue base & post. pharyngeal wall Pharyngeal Residue: Collection of residue within or on pharyngeal structures - Esophageal Phase Esophageal Clearance: Esophageal retention - Diagnosis/Impression Diagnosis: Moderate-severe oropharyngeal phase dysphagia (R13.12) Impression: The oral phase is primarily marked by... -Decreased bolus control with <1/2 of the bolus spilling posteriorly to the posterior surface of the epiglottis prior to swallow onset. -Lingual pumping for A-P transport of pudding. -Majority of bolus remaining in oral cavity after the initial swallow with cup sips and pudding, which mostly cleared with independent initiation of a second and third swallows as needed. -Prolonged, but adequate mastication of cookie trial. The pharyngeal phase is primarily marked by... -Decreased airway closure during the swallow due to mildly decreased anterior hyoid excursion, partial epiglottic inversion, and mildly decreased laryngeal elevation. -Moderate-severely decreased tongue base retraction, moderately decreased UES opening/duration, and mildly decreased pharyngeal stripping wave with resulting moderate pharyngeal residues after the swallow. Thin and nectar thick liquid residue in the pyriforms and vallecula was observed to spill into the laryngeal vestibule after the swallow with resulting post prandial aspiration. -Aspiration of thin liquids via cup, honey thick liquids via cup, and thin liquids via cup with chin tuck during the swallow. Post prandial aspiration of residue thin liquids via cup, nectar thick liquids via cup, and nectar thick liquids via tsp. The esophageal phase is primarily marked by... -Esophageal retention of cookie observed throughout upper, middle, and lower esophagus, which remained below the upper esophageal sphincter. - Recommendations Diet: Osburn-thick Liquids - Soft and Bite Size Textures (IDDSI Level 6) Compensatory Strategies: Small Bites - chew thoroughly , No Straws, Liquid by Teaspoon Only - hard swallow, cough and re-swallow EVERY SIP, Slow Rate, Sitting upright, Remain sitting upright for 30 minutes after PO intake Supervision: 1:1 Close Supervision Recommend Repeat Modified Barium Swallow: Yes - 3-5 weeks after implementation of oropharyngeal exercise program Need for Skilled Speech Therapy Services: Yes Comment: Will recommend the patient for home health dysphagia therapy to address increased deficits in oropharyngeal swallow function. Will recommend the patient for oropharyngeal strengthening to improve laryngeal elevation, hyoid excursion, tongue base retraction, pharyngeal contraction, and duration of UES opening (effortful swallow, Negar, effortful breath hold and swallow, Samra). The patient would benefit from thorough education regarding diet recommendations and recommended compensatory strategies. Would consider the patient for implementation of Gonsales Free Water Protocol (FFWP) to encourage hydration and promote increased opportunities for swallowing throughout the day if deemed appropriate by HH ST - pt would benefit from strategies including, small sips, multiple swallows, cough and re-swallows. Recommended Referrals: GI Consult - Consider GI consult if pt experiences increased reflux or regurgitation. Education Completed: 1. Described result of evaluation., 2. Pt understands evaluation & agrees with goals and treatment plan., 4. Family/caregivers understand evaluation & agree w/ goals & tx plan., 7. Pt requires further education on strategies & risks., 8. Family/caregivers require further education on strategies & risks. - Status Active ST Patient: Active - Contact Information [facility] Speech Therapy:: Joseline Stubbs M.A. [facility]-HEAVY EQUIPMENT FIELD MECHANIC Speech-Language Pathologist [facility] [address] [place] [address] [email or web address] [phone] 05/02/22 14:31
[2022-05-02 15:28] VITALS: BP 102/58; PULSE 69; RESP 16; TEMP 36.7; O2SAT 92
[2022-05-02] MEDS: 0.9% Saline Lock 10 ML Syringe IV (15:31)
== END 2022-05-02 15:45 | disposition home or self-care (01) | DRG 193 ==
LOC: ED 23:22 → MS3 23:31
PROVIDERS: Admitting Provider Internal Medicine; Emergency Provider Emergency Medicine; PCP Family Medicine; Visit Provider Student in an Organized Health Care Education/Training Program
DX: J10.1 Influenza due to other identified influenza virus with other respiratory manifestations (principal); G93.41 Metabolic encephalopathy; E44.0 Moderate protein-calorie malnutrition; A04.72 Enterocolitis due to Clostridium difficile, not specified as recurrent; D84.821 Immunodeficiency due to drugs; E87.20 Acidosis, unspecified; C16.9 Malignant neoplasm of stomach, unspecified; N39.0 Urinary tract infection, site not specified; D63.8 Anemia in other chronic diseases classified elsewhere; E11.9 Type 2 diabetes mellitus without complications; M35.3 Polymyalgia rheumatica; Z87.891 Personal history of nicotine dependence; R03.0 Elevated blood-pressure reading, without diagnosis of hypertension; Z92.21 Personal history of antineoplastic chemotherapy; B96.1 Klebsiella pneumoniae [K. pneumoniae] as the cause of diseases classified elsewhere; Z79.52 Long term (current) use of systemic steroids; B97.89 Other viral agents as the cause of diseases classified elsewhere; F32.A Depression, unspecified; N40.0 Benign prostatic hyperplasia without lower urinary tract symptoms; R13.10 Dysphagia, unspecified; Z68.26 Body mass index [BMI] 26.0-26.9, adult
CPT/HCPCS: 36415; 36591; 71045; 74230; 80048; 80053; 81001; 83605; 85025; 85610; 85730; 87040; 87086; 87088; 87428; 87493; 87506; 92526; 92610; 92611; 93005; 94762; 97162; 97166; 97530; 97535; 99285; J7030; J7040; A4216

== ENCOUNTER 2022-05-07 18:07 | Outpatient (RCR) | payer MEDICARE, OTHER, SELFPAY | END 2022-05-07 18:08 | disposition home or self-care (01) | LOC: HHLAB 18:07 | PROVIDERS: PCP Family Medicine | DX: R82.90 Unspecified abnormal findings in urine (principal) | CPT/HCPCS: 87086; 87088 ==

== ENCOUNTER → 2022-05-20 | Outpatient (CLI) | payer MEDICARE, OTHER, SELFPAY ==
--- NOTE | 2022-05-20 14:08 | ST.MBS ---
Modified Barium Swallow - Patient Information Study Date: 05/20/22 Study Time: 13:05 Direct Billable Minutes: 94 Total Minutes procedure & reportin Diagnosis: Dysphagia (R13.10) Referring Physician: Cecelia Villasenor Reason for Referral: Objectively assess swallow function, assess risk for aspiration, and determine recommendations for least restrictive diet textures and compensatory strategies to improve safety of swallow. Medical History: PMH: polymyalgia rheumatica on chronic prednisone, GERD with Betancur's esophagus, BPH, carcinoma of the stomach, on chemotherapy, follows with [facility] oncology. Patient had recent acute stay at [facility] admitted with confusion and discharged on 04/23/2022 after care for acute Klebsiella pneumonia and UTI secondary to acute urinary retention. During the stay, he was recommended for MBSS by speech therapy to assess concerns for aspiration. MBSS revealed mild oropharyngeal dysphagia and recommended Regular textures / Thin liquids with No Straws, Small Bites, Small Sips - HARD/EFFORTFUL SWALLOWS, Slow Rate, Multiple Swallows - DOUBLE SWALLOWS ON EACH SIP, Sitting upright, Remain sitting upright for 30 minutes after PO intake Supervision: 1:1 Close Supervision - ok to provide supervision if present. He was re-admitted to [facility] 04/28/2022 for influenza A. REPLENISHMENT ASSOCIATE followed during current POC due to frequent coughing, both with and without oral intake. REPLENISHMENT ASSOCIATE recommended repeat MBSS due to worsening lung sounds in the lung bases bilaterally and frequent coughing with administration of medications in applesauce and thin liquids. Repeat MBSS on 05/02/2022 revealed moderate-severe dysphagia with aspiration of thin and honey thick liquids and post prandial aspiration of thin and neck thick liquids. He was recommended for Winston-thick Liquids - Soft and Bite Size Textures (IDDSI Level 6) with the following strategies: Small Bites - chew thoroughly , No Straws, Liquid by Teaspoon Only - hard swallow, cough and re-swallow EVERY SIP, Slow Rate, Sitting upright, Remain sitting upright for 30 minutes after PO intake, 1:1 Close Supervision. He has been participating in ST and was recommended for repeat MBSS to reassess swallow function and consider the patient for diet advancement. Per , Kristyn, the patient has been experiencing confusion and sleep difficulty in the past month. He has palliative care at home. Recent chest X-ray revealed no PNA per . No concerns for trouble swallowing solids or nectar thickened liquids at home; however, per , the patient will at times forget to thicken water bottles and experience coughing with consumption. He is unable to reliably follow strategies to decrease risk for aspiration due to confusion. Current Diet Ordered: Soft and bite size / Winston thick liquids Dentition: Upper Dentures, Lower Dentures Mental Status: Impaired - confusion per Respiratory Status: Oxygenating on Room Air - Penetration-Aspiration Scale Penetration-Aspiration Scale: OBJECTIVE ASSESSMENT OF SWALLOW FUNCTION (QUANTITATIVE ? PER TRIAL): PENETRATION / ASPIRATION SCALE (ALLAN): 1 = does not enter airway 2 = enters airway/above vocal folds/ejected 3 = enters airway/above vocal folds/not ejected 4 = enters airway/contacts vocal folds/ejected 5 = enters airway/contacts vocal folds/not ejected 6 = enters airway/below vocal folds/ejected 7 = enters airway/below vocal folds/not ejected despite effort 8 = enters airway/below vocal folds/no effort VIDEOFLOROSCOPIC SCALE SCORE (ALLAN): Grade I = aspiration of material that has penetrated into the laryngeal vestibule, intact cough reflex Grade II = aspiration < 10 % of the bolus, intact cough reflex Grade III = aspiration of < 10 % of the bolus, reduced cough reflex or aspiration of > 10 % of the bolus, intact cough reflex Grade IV = aspiration of > 10 % of the bolus, reduced cough reflex - Penetration-Aspiration Scale Score Thin Liquid via teaspoon Result: 2= enter airway/above vocal folds/ejected Thin Liquid via teaspoon Trial 2 Result: 2= enter airway/above vocal folds/ejected Thin Liquid via large single sip from cup Result: 5= enters airways/contacts vocal folds/not ejected - trace laryngeal penetration on third swallow of pharyngeal residue spilling from the pyriforms to the vocal folds Winston Thick Liquid via small single sip from cup Result: 2= enter airway/above vocal folds/ejected Pudding via teaspoon Result: 2= enter airway/above vocal folds/ejected 1/2 Cookie Result: 1= does not enter airway Thin Liquid via large single sip from cup Effortful swallow Result: 5= enters airways/contacts vocal folds/not ejected - trace laryngeal penetration on second swallow of pharyngeal residue spilling from the pyriforms to the vocal folds Thin Liquid via teaspoon Effortful swallow Result: 1= does not enter airway Winston Thick Liquid via small single sip from cup Trial 2 Result: 1= does not enter airway - Oral Phase Labial Seal: Escape progressing to mid-chin Tongue Control During Bolus Hold: Posterior escape of less than half of bolus Bolus Preparation/Mastication: Slow prolonged chewing/mashing with complete recollection Bolus Transport/Lingual Motion: Repetitive/disorganized tongue motion Oral Residue: Residue collection on oral structures - piecemeal - Pharyngeal Phase Initiation of Pharyngeal Swallow: Bolus head in pyriforms Soft Palate Elevation: Trace column of contrast/air between soft palate and pharyngeal wall Laryngeal Elevation: Partial superior movement thyroid cart/partial apprx aryt-epig petiole Epiglottic Movement: Partial inversion Laryngeal Vestibule Closure at Height of Swallow: Incomplete; narrow column of air/contrast in laryngeal vestibule Pharyngeal Stripping Wave: Present - diminished Pharyngoesophageal Segment Opening: Parital distension and partial duration; parital obstruction of flow Tongue Base Retraction: Wide column of contrast between tongue base & post. pharyngeal wall Pharyngeal Residue: Collection of residue within or on pharyngeal structures - Esophageal Phase Esophageal Clearance: Esophageal retention w/ retrograde flow through pharyngoesophageal seg - Diagnosis/Impression Diagnosis: Mild-moderate oropharyngeal dysphagia (R13.12) Impression: The oral phase is primarily marked by... -Decreased bolus control with <1/2 of the bolus spilling posteriorly to the posterior surface of the epiglottis prior to swallow onset observed with thin liquids. -Lingual pumping for A-P transport of pudding. -Piecemeal deglutition of pudding and cookie, which cleared with independent initiation of multiple swallows as needed. -Prolonged, but adequate mastication of cookie trial. The pharyngeal phase is primarily marked by... -Decreased airway closure during the swallow due to mildly decreased anterior hyoid excursion, partial epiglottic inversion, and mildly decreased laryngeal elevation. -Moderately decreased tongue base retraction, moderately decreased UES opening/duration, and mildly decreased pharyngeal stripping wave with resulting moderate pharyngeal residues after the swallow. Thin thick liquid residue in the pyriforms was observed to spill to the vocal folds on second or third swallows - no throat clear or cough reflex in response to laryngeal penetration to the vocal folds. -No aspiration was observed this study. Laryngeal penetration of thin by cup to the vocal folds without full ejection. Despite cues to take small sip, pt continued with medium-large cup sips of thin. The esophageal phase is primarily marked by... -Esophageal retention of pudding observed in the lower esophagus with retrograde flow which remained below the upper esophageal sphincter (UES). -Trace laryngeal retention of thin in the upper esophagus with trace retrograde flow through the UES. - Recommendations Diet: Winston-thick Liquids - Easy to Chew textures (IDDSI Level 7) Comment: Will recommend implementation of [place]ales Free Water Protocol (FFWP) with the instruction of home health speech therapist - may consider use of Provale bolus control cup if patient is unable to reliably control bolus size/rate with FFWP. Compensatory Strategies: Small Bites, Small Sips - encourage effortful swallows, Slow Rate, Multiple Swallows - Continue double swallows as needed, Sitting upright, Remain sitting upright for 30 minutes after PO intake Supervision: 1:1 Close Supervision - to continue assisting with verbal cues as able Recommend Repeat Modified Barium Swallow: Yes - no cough response for laryngeal penetration of thin to the vocal folds - would strongly consider repeat MBSS prior to further diet advancement 3-5 weeks after implementation of continued oropharyngeal strengthening Need for Skilled Speech Therapy Services: Yes Comment: Will recommend the patient for home health dysphagia therapy to address increased deficits in oropharyngeal swallow function. Will recommend the patient for continued oropharyngeal strengthening to improve laryngeal elevation, hyoid excursion, tongue base retraction, pharyngeal contraction, and duration of UES opening (effortful swallow, Negar, effortful breath hold and swallow, Samra). SEE FFWP recommendations above. Education Completed: 1. Described result of evaluation., 4. Family/caregivers understand evaluation & agree w/ goals & tx plan., 6. Family/caregivers demonstrate recommended strategies., 7. Pt requires further education on strategies & risks. - Status Active ST Patient: Active - Contact Information [facility] Speech Therapy:: Joseline Stubbs M.A. [facility]-REPLENISHMENT ASSOCIATE Speech-Language Pathologist [facility] [address] [place] [address] [email or web address] [phone] 05/20/22 14:17
== END | disposition home or self-care (01) ==
LOC: RAD 12:47
PROVIDERS: PCP Family Medicine; Referring Provider Family Medicine; Visit Provider Family Medicine
DX: R13.10 Dysphagia, unspecified (principal)
CPT/HCPCS: 74230; 92611

== ENCOUNTER 2022-07-13 10:14 | Inpatient (IN) | payer MEDICARE, OTHER, SELFPAY ==
[2022-07-13] VITALS (9 sets, daily range): BP systolic 99–124; BP diastolic 56–96; PULSE 75–127; RESP 14–25; TEMP 36.9–37.8; O2SAT 95–98; BMI 26.4
--- NOTE | 2022-07-13 10:38 | EKG12_ITS ---
Test Reason : LOC Blood Pressure : / mmHG Vent. Rate : 126 BPM Atrial Rate : 126 BPM P-R Int : 148 ms QRS Dur : 128 ms QT Int : 308 ms P-R-T Axes : 044 070 006 degrees QTc Int : 446 ms Sinus tachycardia with Premature atrial complexes Right bundle branch block Abnormal ECG Confirmed by ESTRELLITA TRUJILLO, CARLTON ([id number]), assistant production editor NITA ACEVEDO ([id number]) on 07/15/2022 11:18:25 AM Referred By: Confirmed By:CARLTON HARO MD
--- NOTE | 2022-07-13 10:39 | EDS_ITS ---
HPI History of Present Illness Chief Complaint: Alt LOC Narrative Narrative: 81-year-old male past medical history of gastric carcinoma, presents with his because of fever and mental status change. His history and physical is limited secondary to patient condition/mental status change. According to his , he recently finished antibiotics for pneumonia and urinary tract infection. This was on , 3 days ago. Yesterday he had a good day, but this morning he awoke with elevated temperature 100.4 ?F and increased confusion. He has been taking ciprofloxacin and doxycycline that he was put on by his oncologist, Dr. Oakes. Additionally, he has chronic use of steroids for polymyalgia. notes that palliative care recently put him on [place] for his back pain but he only took 1 dose yesterday. He has had problems with confusion with urinary tract infection. She presents him because of the mental status change and fever. [facility] Medical History Adenocarcinoma of stomach Arthritis Betancur's esophagus without dysplasia Bilateral low back pain with sciatica Cancer Complicated UTI (urinary tract infection) Diabetes mellitus Difficulty swallowing Erectile dysfunction Former smoker Gastric reflux History of steroid therapy Immunosuppression due to drug therapy Polymyalgia rheumatica Wears dentures Wears hearing aid Home Medications ondansetron HCl 4 mg tablet 8 mg PO Q8H PRN PRN Nausea 12/06/21 [History Last Taken Unknown] pantoprazole 40 mg tablet,delayed release (Protonix) 40 mg PO BID GERD 12/06/21 [History Last Taken 12/07/21 07:00] prednisone 10 mg tablet 20 mg PO DAILY Check with primary doctor 12/06/21 [History Last Taken Unknown] tamsulosin 0.4 mg capsule 0.4 mg PO QHS urine flow 12/06/21 [History Last Taken Unknown] hydrocodone-homatropine 5 mg-1.5 mg/5 mL oral syrup 5 ml PO Q6H PRN Cough 04/19/22 [History Last Taken Unknown] olanzapine 10 mg tablet (Zyprexa) 10 mg PO DAILY 04/19/22 [History Last Taken Unknown] finasteride 5 mg tablet 5 mg PO DAILY 04/28/22 [History Last Taken Unknown] oseltamivir 30 mg capsule 30 mg PO BID #2 caps 05/02/22 [Rx Last Taken Unknown] vancomycin 25 mg/mL oral solution (Firvanq) 125 mg (5 mL) PO Q6 9 days #180 mL 05/02/22 [Rx Last Taken Unknown] Allergy/AdvReac Type Severity Reaction Status Date / Time No Known Allergies Allergy Verified 07/13/22 10:17 Family History Mother CVA (cerebral vascular accident) Cancer kidney Surgical History History of carpal tunnel release of both wrists History of esophagogastroduodenoscopy (EGD) Social History household members: spouse Smoking Status: Former smoker Tobacco: How many years used: 25 how long ago did patient quit smokin, 0.5ppd second hand exposure: Yes ROS ROS ED ROS Narrative Constitutional: +100.4 ?F fever, no chills. Positive confusion. HEENT: No sore throat. No neck pain. No loss of vision. No rhinorrhea. Cardiovascular: No chest pain. No palpitations. No pedal edema. Respiratory: No cough, no shortness of breath. Abdominal: No abdominal pain. No nausea. No vomiting. Genitourinary: No dysuria. No hematuria. Musculoskeletal: No myalgias. No arthralgias. Neurologic: No headaches. No dizziness. No lightheadedness. Skin: No rash. No change in color. Psychiatric: No depression. No anxiety. EXAM Physical Exam Narrative Exam Narrative: Temperature 100.0 ?F vital signs noted. Mildly anxious. HEENT: Normocephalic. Atraumatic. PERRL, EOMI. Neck soft and supple. No point tenderness or step off. Cardiovascular: Positive tachycardia. No murmurs, rubs, or gallops appreciated. Respiratory: No tachypnea. Lungs clear to auscultation bilaterally. Gastrointestinal: Abdomen soft, nontender, with normoactive bowel sounds. No rebound or guarding. Neurological: Awake. Alert. Nonfocal, nonlateralizing. Skin: No rash. Normal color. No pallor. Musculoskeletal: No pedal edema. Full range of motion extremities. Const Vital Signs: 07/13/22 10:17 07/13/22 10:22 07/13/22 10:38 Temperature 100.0 F H 100.0 F H Temperature Source Temporal Temporal Pulse Rate 127 H 126 H Respiratory Rate 25 H 24 H Respiratory Effort Respiratory Depth Respiratory Pattern Blood Pressure 118/96 H 103/87 H Blood Pressure Mean 103 92 Pulse Ox 95 95 Oxygen Delivery Method Non-Rebreather Non-Rebreather Non-Rebreather Oxygen Flow Rate (L/min) 11 11 Fraction of Inspired Oxygen (FIO2) 11 07/13/22 11:12 07/13/22 11:22 07/13/22 12:00 Temperature 100.0 F H Temperature Source Temporal Pulse Rate 104 H 96 Respiratory Rate 20 H 20 H Respiratory Effort Short of Breath Labored Respiratory Depth Normal Respiratory Pattern Tachypnea Blood Pressure 123/63 H 124/56 H Blood Pressure Mean 83 78 Pulse Ox 96 98 Oxygen Delivery Method Non-Rebreather Non-Rebreather Room Air Oxygen Flow Rate (L/min) 11 6 Fraction of Inspired Oxygen (FIO2) Sepsis Attestation Sepsis Alert: Yes Sepsis Attestation: Agree w/Sepsis Date exam was performed: 07/13/22 Time exam was performed: 12:20 Possible Source of Sepsis: Pulmonary and Genitourinary Sepsis Organ Dysfunction Criteria Present: Lactic Acid > 2 mmol/L and New/Unexplained change in mental status MDM MDM MDM Narrative Medical decision making narrative: Sepsis work-up was pursued. Patient does have an indwelling Ortiz catheter currently. As he has had recent chemotherapy and is supposed to have another dose next week as they are performing chemotherapy every other week, neutropenic fever work-up was pursued/sepsis work-up. Blood cultures were obtained. He will be bolused normal saline 1 L intravenously initially as a source of infection we will attempted to be identify. He was swabbed for COVID and influenza. Chest x-ray will be obtained to look for consolidation. Urinalysis and culture will be sent. I reviewed the patient's laboratory work and he actually has an elevated white count of 12.7, not neutropenic, hemoglobin stable at 10.9 with hematocrit 34.9, coagulation studies were negative in the sepsis work-up with an INR of 1.1, chloride slightly elevated at 113 but normal sodium of 141, potassium normal at 3.5. Lactic acid is elevated at 3.0. He will be bolused IV fluids for a total of 2520 mL. In review of his urinalysis, he does have WBC count greater than 100. According to his he had an indwelling Ortiz catheter the last 2 to 3 months secondary to an enlarged prostate. He is supposed to undergo a voiding trial in the near future to see if it can be removed as he is currently on 2 medications for his enlarged prostate. Additionally, chest x-ray was obtained and interpreted independently by myself which shows a right lower lobe pneumonia. I reviewed the radiology report which confirms my independent interpretation. As he has recently finished ciprofloxacin and doxycycline, I chose meropenem to cover both the urinary tract infection for his indwelling Ortiz catheter and his pneumonia. Blood cultures are currently pending along with urine culture. I discussed patient with Dr. Oakes with oncology who agrees with admission. As he was tachycardic at 127, he is less tachycardic at 96 bpm. I do feel that he may becoming sepsis from both infections in his lung and urinary tract. I discussed patient with Dr. Emerson. I do feel that he is stable for admission to the general medical floor. He was reportedly hypoxic per EMS, but is currently satting 98 percent on room air without evidence of hypoxia. Disposition is admit in stable condition. Critical care time 24 minutes including time spent arranging admission and discussing with consultants, discussing patient with family, and bedside care. History & Record Review Discussion w/independent historian: Family Additional record(s) reviewed:: Prior outpatient record and Prior ED visit Lab Data Attestation: I reviewed the patient's lab results. Labs: Laboratory Results - last 24 hr 07/13/22 07/13/22 07/13/22 10:40 10:40 10:40 WBC 12.7 H RBC 3.89 L Hgb 10.9 L Hct 34.9 L MCV 89.7 MCH 28.0 MCHC 31.2 L RDW Std Deviation 56.6 H RDW Coeff of Nancy 17.4 H Plt Count 245 MPV 9.8 Immature Gran % (Auto) 0.500 Neut % (Auto) 88.3 H Lymph % (Auto) 8.9 L [place] % (Auto) 2.0 Eos % (Auto) 0.2 Baso % (Auto) 0.1 Absolute Neuts (auto) 11.3 H Absolute Lymphs (auto) 1.13 Nucleated RBC % 0 PT 14.1 INR 1.1 APTT 26.2 Sodium 141 Potassium 3.5 Chloride 113 H Carbon Dioxide 23.0 Anion Gap 5 BUN 24 H Creatinine 1.03 Estim Creat Clear Calc 60.05 Est GFR (MDRD) Af Amer 90 Est GFR (MDRD) Non-Af 74 BUN/Creatinine Ratio 23.3 H Glucose 150 H Lactic Acid Calcium 8.4 L Total Bilirubin 0.60 AST 14 L ALT 18 Alkaline Phosphatase 69 Total Protein 5.5 L Albumin 2.7 L Globulin 2.8 Albumin/Globulin Ratio 1.0 Urine Color Urine Clarity Urine pH Ur Specific [place] Urine Protein Urine Glucose (UA) Urine Ketones Urine Occult Blood Urine Nitrite Urine Bilirubin Urine Urobilinogen Ur Leukocyte Esterase Urine RBC Urine WBC Ur Squamous Epith Cells Urine Bacteria Urine Mucus Urine Yeast 07/13/22 07/13/22 10:40 11:14 WBC RBC Hgb Hct MCV MCH MCHC RDW Std Deviation RDW Coeff of Nancy Plt Count MPV Immature Gran % (Auto) Neut % (Auto) Lymph % (Auto) [place] % (Auto) Eos % (Auto) Baso % (Auto) Absolute Neuts (auto) Absolute Lymphs (auto) Nucleated RBC % PT INR APTT Sodium Potassium Chloride Carbon Dioxide Anion Gap BUN Creatinine Estim Creat Clear Calc Est GFR (MDRD) Af Amer Est GFR (MDRD) Non-Af BUN/Creatinine Ratio Glucose Lactic Acid 3.0 H* Calcium Total Bilirubin AST ALT Alkaline Phosphatase Total Protein Albumin Globulin Albumin/Globulin Ratio Urine Color Yellow Urine Clarity Cloudy Urine pH 6.0 Ur Specific [place] 1.010 Urine Protein 30 H Urine Glucose (UA) Normal Urine Ketones Negative Urine Occult Blood 150 H Urine Nitrite Negative Urine Bilirubin Negative Urine Urobilinogen Normal Ur Leukocyte Esterase 500 H Urine RBC 10-25 SEEN Urine WBC >100 SEEN Ur Squamous Epith Cells 0 SEEN Urine Bacteria 1+ Urine Mucus 0 SEEN Urine Yeast 2+ Radiography Diagnostic Testing: Clinical Impression(s) from Imaging Studies Chest X-Ray 07/13/22 11:33 IMPRESSION: Right lung pneumonia, new since 04/28/2022. Electronically Signed: Nick Meier MD at 12:20 EDT , Management Discussion w/another healthcare provider: Hospitalist and Gynecologist Discharge Plan Dx/Rx/DC Orders Clinical Impression: RLL pneumonia, Complicated urinary tract infection, Gastric carcinoma, Sepsis, Confusion Disposition Disposition: Acute Care Hospital [facility]
[2022-07-13] MEDS: 0.9% Normal Saline 1,000 ML 999 ML IV ×4 (10:47→14:23)
[2022-07-13 10:59] LABS: Absolute Lymphocyte Count 1.13 X10^3/uL (0.83-4.51); Absolute Neutrophil Count 11.3 X10^3/uL (2.0-7.7); Basophil# 0.01 X10^3/uL; Basophil% 0.1 % (0-1); Eosinophil# 0.02 X10^3/uL; Eosinophils% 0.2 % (0-5); Hematocrit 34.9 % (40-54); Hemoglobin 10.9 g/dL (13.0-16.5); Lymphocyte # 1.13 X10^3/ul (0.83-4.51); Lymphocyte % 8.9 % (19-41); Mean Corp Hgb Conc 31.2 g/dL (32-36); Mean Corpuscular Volume 89.7 fL (80-94); Mean Platelet Vol. 9.8 fl (6.2-12.0); Monocyte# 0.25 X10^3/uL; NRBC Flagged by Analyzer 0 % (0-5); Neutrophil # 11.25 X10^3/uL (2.7-7.7); Neutrophil % 88.3 % (47-70); Platelet Count 245 K/mm3 (150-450); RBC Distribution Width CV 17.4 % (11.6-14.6); RBC Distribution Width SD 56.6 fl (35.1-43.9); Red Blood Count 3.89 M/mm3 (4.6-6.2); White Blood Count 12.7 K/mm3 (4.4-11.0)
[2022-07-13 11:09] LABS: International Normalized Ratio 1.1; Prothrombin Time (Protime)PT. 14.1 SECONDS (11.7-14.9)
[2022-07-13 11:10] LABS: Partial Thromboplast Time 26.2 Seconds (24.1-36.2)
[2022-07-13 11:20] LABS: Mucous, Urine 0 SEEN /hpf (<or=2+); Squamous Epithelial Cells - UA 0 SEEN /hpf (0-5)
[2022-07-13 11:24] LABS: AST(SGOT) 14 U/L (15-37); Alanine Aminotransfer ALT/SGPT 18 U/L (16-61); Albumin, Serum 2.7 g/dL (3.2-5.0); Alkaline Phosphatase 69 U/L (45-117); Anion Gap 5 (5-15); BUN 24 mg/dL (7-18); BUN/Creat Ratio 23.3 RATIO (10-20); Calcium,Total 8.4 mg/dL (8.5-10.1); Chloride 113 mmol/L (98-107); Creatinine, Serum 1.03 mg/dL (0.70-1.30); EST Glomerular Filtration Rate 74 mL/min (>60); Est Glom Filt Rate - Afr Amer 90 mL/min (>60); Estimated Creatinine Clearance 60.05 ml/min; Globulin 2.8 g/dL (2.2-4.2); Glucose 150 mg/dL (74-106); Potassium 3.5 mmol/L (3.5-5.1); Protein, Total 5.5 g/dL (6.4-8.2); Sodium Level 141 mmol/L (136-145)
[2022-07-13 11:30] LABS: Color, Urine Yellow (Yellow); Glucose, Dipstick Normal (Normal); Ketone-Dipstick Negative (Negative); Leukocyte Esterase-Dipstick 500 /ul (Negative); Nitrite-Dipstick Negative (Negative); Occult Blood-Urine 150 /ul (Negative); Protein-Dipstick 30 mg/dl (Negative); Urine Bilirubin Dipstick Negative (Negative); Urine Clarity Cloudy (Clear); Urine Urobilinogen Normal (Normal)
--- NOTE | 2022-07-13 11:33 | RAD_ITS ---
EXAM: XR CHEST, 1 VIEW CLINICAL INDICATION: Fever. TECHNIQUE: Frontal view of the chest. This report was created using [employer] report generation technology. COMPARISON: 04/28/2022. FINDINGS: LUNGS AND PLEURAL SPACES: Prominent ill-defined infiltrates in the right lower lobe, right middle lobe at least in the medial aspect of the right upper lobe. No pneumothorax. No effusion. HEART: Unremarkable. Cardiac silhouette not enlarged. MEDIASTINUM: Central airways and mediastinal contour are unremarkable. BONES/JOINTS: Unremarkable. SOFT TISSUES: Unremarkable. TUBES, LINES AND DEVICES: Right IJ approach portacatheter tip is in the mid SVC. RAD/Chest 1 View (Portable) IMPRESSION: Right lung pneumonia, new since 04/28/2022. Electronically Signed: Nick Meier MD at 12:20 EDT ,
[2022-07-13 11:49] LABS: Bacteria 1+ /hpf (None Seen); Red Blood Cells-Urine 10-25 SEEN /hpf (0-5); White Blood Cells >100 SEEN /hpf (0-5); Yeast-Urine 2+ /hpf (None Seen)
--- NOTE | 2022-07-13 13:22 | PCM.HP.STD ---
HPI - General General Date of Admission: 07/13/22 Date of Service: 07/13/22 Chief Complaint: confusion HPI Narrative TRISTAN KAUR, is a 81 M who presents with confusion and rigors today. Recently, patient was taking cipro and doxycycline for 10 days, which she completed on 07/11. He was taking abx for a pneumonia and UTI. Patient has a chronic catheter due to BPH. In ED, patient was encephalopathic. He received IVF. He was diagnosed with pneumonia and UTI. Given his recent abx, he received meropenem. While in the ED, he had a BM and his mental status returned to normal. His BM was reported as normal. [facility] Medical History Adenocarcinoma of stomach Arthritis Betancur's esophagus without dysplasia Bilateral low back pain with sciatica Cancer Complicated UTI (urinary tract infection) Diabetes mellitus Difficulty swallowing Erectile dysfunction Former smoker Gastric reflux History of steroid therapy Immunosuppression due to drug therapy Polymyalgia rheumatica Wears dentures Wears hearing aid Home Medications ondansetron HCl 4 mg tablet 8 mg PO Q8H PRN PRN Nausea 12/06/21 [History Last Taken Unknown] pantoprazole 40 mg tablet,delayed release (Protonix) 40 mg PO BID GERD 12/06/21 [History Last Taken 12/07/21 07:00] prednisone 10 mg tablet 20 mg PO DAILY Check with primary doctor 12/06/21 [History Last Taken Unknown] tamsulosin 0.4 mg capsule 0.4 mg PO QHS urine flow 12/06/21 [History Last Taken Unknown] hydrocodone-homatropine 5 mg-1.5 mg/5 mL oral syrup 5 ml PO Q6H PRN Cough 04/19/22 [History Last Taken Unknown] olanzapine 10 mg tablet (Zyprexa) 10 mg PO DAILY 04/19/22 [History Last Taken Unknown] finasteride 5 mg tablet 5 mg PO DAILY 04/28/22 [History Last Taken Unknown] oseltamivir 30 mg capsule 30 mg PO BID #2 caps 05/02/22 [Rx Last Taken Unknown] vancomycin 25 mg/mL oral solution (Firvanq) 125 mg (5 mL) PO Q6 9 days #180 mL 05/02/22 [Rx Last Taken Unknown] Allergy/AdvReac Type Severity Reaction Status Date / Time No Known Allergies Allergy Verified 07/13/22 10:17 Family History Mother CVA (cerebral vascular accident) Cancer kidney Surgical History History of carpal tunnel release of both wrists History of esophagogastroduodenoscopy (EGD) Social History household members: spouse Smoking Status: Former smoker Tobacco: How many years used: 25 how long ago did patient quit smokin, 0.5ppd second hand exposure: Yes ROS ROS Narrative +sore throat. Denies diarrhea. All review of systems were negative except as mentioned above in the history of present illness and the other review of systems. Vital Signs Vital Signs Vital Signs: 07/13/22 10:17 07/13/22 10:22 07/13/22 10:38 Temperature 37.8 C H 37.8 C H Temperature Source Temporal Temporal Pulse Rate 127 H 126 H Respiratory Rate 25 H 24 H Respiratory Effort Respiratory Depth Respiratory Pattern Blood Pressure 118/96 H 103/87 H Blood Pressure Mean 103 92 Pulse Ox 95 95 Oxygen Delivery Method Non-Rebreather Non-Rebreather Non-Rebreather Oxygen Flow Rate (L/min) 11 11 Fraction of Inspired Oxygen (FIO2) 11 07/13/22 11:12 07/13/22 11:22 07/13/22 12:00 Temperature 37.8 C H Temperature Source Temporal Pulse Rate 104 H 96 Respiratory Rate 20 H 20 H Respiratory Effort Short of Breath Labored Respiratory Depth Normal Respiratory Pattern Tachypnea Blood Pressure 123/63 H 124/56 H Blood Pressure Mean 83 78 Pulse Ox 96 98 Oxygen Delivery Method Non-Rebreather Non-Rebreather Room Air Oxygen Flow Rate (L/min) 11 6 Fraction of Inspired Oxygen (FIO2) 07/13/22 13:00 Temperature 36.9 C Temperature Source Temporal Pulse Rate 89 Respiratory Rate 14 Respiratory Effort Respiratory Depth Respiratory Pattern Blood Pressure 99/58 L Blood Pressure Mean 71 Pulse Ox 95 Oxygen Delivery Method Room Air Oxygen Flow Rate (L/min) Fraction of Inspired Oxygen (FIO2) Weight Weight: 83.6 kg Body Mass Index (BMI) 26.4 Physical Exam Const alert and no apparent distress Constitutional Narrative: Pleasant. Making jokes during encounter. HEENT normocephalic and head/scalp atraumatic Neck no lymphadenopathy Resp normal respiratory effort and no retractions Resp Narrative: Crackles in right lower lobe Cardio regular rate, regular rhythm, S1 normal heart sound and S2 normal heart sound GI normal to inspection, nondistended, normoactive bowel sounds, soft to palpation, non-tender and non-distended GI Narrative: Ortiz catheter in place. Extremity normal to inspection, full ROM and no clubbing, cyanosis or edema Neuro oriented x3 Sensorium / Orientation: awake and alert Psych affect normal Results Lab / Micro Data Attestation: I reviewed the patient's lab results. Lab results narrative: Chest x-ray personally reviewed and shows diffuse right-sided infiltrates are more prominent in the lower lobes. Result Diagrams: 07/13/22 10:40 07/13/22 10:40 Labs: Laboratory Results - last 24 hr 07/13/22 10:40: WBC 12.7 H, RBC 3.89 L, Hgb 10.9 L, Hct 34.9 L, MCV 89.7, MCH 28.0, MCHC 31.2 L, RDW Std Deviation 56.6 H, RDW Coeff of Nancy 17.4 H, Plt Count 245, MPV 9.8, Immature Gran % (Auto) 0.500, Neut % (Auto) 88.3 H, Lymph % (Auto) 8.9 L, [place] % (Auto) 2.0, Eos % (Auto) 0.2, Baso % (Auto) 0.1, Absolute Neuts (auto) 11.3 H, Absolute Lymphs (auto) 1.13, Nucleated RBC % 0 07/13/22 10:40: PT 14.1, INR 1.1, APTT 26.2 07/13/22 10:40: Sodium 141, Potassium 3.5, Chloride 113 H, Carbon Dioxide 23.0, Anion Gap 5, BUN 24 H, Creatinine 1.03, Estim Creat Clear Calc 60.05, Est GFR (MDRD) Af Amer 90, Est GFR (MDRD) Non-Af 74, BUN/Creatinine Ratio 23.3 H, Glucose 150 H, Calcium 8.4 L, Total Bilirubin 0.60, AST 14 L, ALT 18, Alkaline Phosphatase 69, Total Protein 5.5 L, Albumin 2.7 L, Globulin 2.8, Albumin/Globulin Ratio 1.0 07/13/22 10:40: Lactic Acid 3.0 H* 07/13/22 11:14: Urine Color Yellow, Urine Clarity Cloudy, Urine pH 6.0, Ur Specific [place] 1.010, Urine Protein 30 H, Urine Glucose (UA) Normal, Urine Ketones Negative, Urine Occult Blood 150 H, Urine Nitrite Negative, Urine Bilirubin Negative, Urine Urobilinogen Normal, Ur Leukocyte Esterase 500 H, Urine RBC 10-25 SEEN, Urine WBC >100 SEEN, Ur Squamous Epith Cells 0 SEEN, Urine Bacteria 1+, Urine Mucus 0 SEEN, Urine Yeast 2+ Micro: Microbiology 07/13/22 10:38 Nasal Secretion SARS-CoV-2 & FLU Antigen (Rapid) - Final Radiology Impression Chest X-Ray 07/13/22 11:33 IMPRESSION: Right lung pneumonia, new since 04/28/2022. Electronically Signed: Nick Meier MD at 12:20 EDT , Assessment & Plan Assessment/Plan (1) Sepsis: PLAN: Secondary to pneumonia with or without a urinary tract infection qSOFA, on admission, was 3 with encephalopathy, tachypnea with a respiratory rate of 25 and blood pressure of 99/58 Patient received 30 cc/kg of IV fluids in the emergency room for total of 2520 mL. Follow-up cultures (2) RLL pneumonia: PLAN: Patient was previously treated with antibiotics with ciprofloxacin and doxycycline as outpatient and completed that 2 days ago. Patient received meropenem in the emergency room. I will the patient on Zosyn and vancomycin Pulmonary toilet Check sputum culture Check urinary antigens for Streptococcus and Legionella Check respiratory panel COVID-19 and influenza were negative (3) Complicated urinary tract infection: PLAN: Suspected catheter associated urinary tract infection, however, with pneumonia that seem to be more likely source of infection Patient's urinalysis is abnormal but could be just due to chronic irritation from having a chronic Ortiz catheter. Antibiotics as above Follow-up urine cultures (4) Metabolic encephalopathy: PLAN: Secondary to sepsis Patient appeared to have had a dramatic recovery in the emergency room where he was very confused earlier and is back to his normal self. No additional work-up at this time. PLAN: Plan Chronic conditions Gastric cancer: Follow-up with oncology as outpatient Betancur's esophagus/GERD: Continue PPI PMR: Continue with prednisone BPH: Continue with the tamsulosin and finasteride. Patient has a chronic catheter and will continue with that. Follow-up with his urologist at the [facility] per routine. VTE prophylaxis with low molecular weight heparin CODE STATUS: Addressed the patient is family. Patient is DNR Comfort Care arrest no intubation. Charges/Coding Visit Charges Inpatient E&M: 92314 Init Hosp L3
[2022-07-13 14:55] LABS: Reflex Lactate? Y
--- NOTE | 2022-07-13 15:33 | PCM.RX.CS ---
Consult Pharmacy has been consulted to manage selected antiobiotic: Vancomycin Type of Consult: New start Suspected Infection: Sepsis, Pneumonia Labs: Sodium 141 mmol/L (136-145) 07/13/22 10:40 Potassium 3.5 mmol/L (3.5-5.1) 07/13/22 10:40 Chloride 113 mmol/L (98-107) H 07/13/22 10:40 Carbon Dioxide 23.0 mmol/L (21.0-32.0) 07/13/22 10:40 Anion Gap 5 (5-15) 07/13/22 10:40 BUN 24 mg/dL (7-18) H 07/13/22 10:40 Creatinine 1.03 mg/dL (0.70-1.30) 07/13/22 10:40 Est GFR (MDRD) Af Amer 90 mL/min (>60) 07/13/22 10:40 Est GFR (MDRD) Non-Af 74 mL/min (>60) 07/13/22 10:40 BUN/Creatinine Ratio 23.3 RATIO (10-20) H 07/13/22 10:40 Glucose 150 mg/dL (74-106) H 07/13/22 10:40 Microbiology: Microbiology 07/13/22 10:38 Nasal Secretion SARS-CoV-2 & FLU Antigen (Rapid) - Final Weight used for dosin.6 kg Estimated Creatinine Clearance: 60ML/MIN Goal Trough: 15-20 mcg/mL Pharmacy Plan for Drug Dosing: Give initial standard dose of 1250mg IV x1, then continue with 1000mg IV q12h per [facility] dosing protocol. Will order a trough before the 4th total dose. Pharmacy Service will continue to monitor and adjust dosing as required. Follow-Up Labs: Trough Vancomycin Labs to be done on [date and time ordered]: 07/15/22 02:30
--- NOTE | 2022-07-13 16:18 | CASEMGMT ---
Social Work Pt has POA for Healthcare on file, Mari Gonsalez is pt's healthcare POA. DARLENE Almodovar
[2022-07-13 16:24] LABS: Lactic Acid 1.5 mmol/L (0.4-1.9)
[2022-07-13] MEDS: Ipratropium/Albuterol Sulfate 3 ML AMPUL.NEB INHALATION (19:35)
[2022-07-13 19:53] LABS: M R Staph aureus DNA By PCR Negative (Negative); Probe Check PASS; Specimen Processing Control PASS
[2022-07-13] MEDS: Pantoprazole Sodium 40 MG Tablet PO (20:11)
[2022-07-13] MEDS: guaiFENesin 1,200 MG Tablet 1200 MG PO (20:11)
[2022-07-13] MEDS: Tamsulosin HCl 0.4 MG Capsule PO (20:12)
[2022-07-13] MEDS: Acetaminophen 325 MG Tablet 650 MG PO (20:12)
[2022-07-13] MEDS: Ondansetron ODT 4 MG Tablet 8 MG PO (20:12)
[2022-07-14] VITALS (7 sets, daily range): BP systolic 95–110; BP diastolic 52–59; PULSE 58–88; RESP 18–21; TEMP 36.7–37; O2SAT 96–99
[2022-07-14] MEDS: Vancomycin IV 1,000 MG/200 ML BAG 200 MG IV ×2 (02:47→15:43)
[2022-07-14 06:25] LABS: Absolute Lymphocyte Count 1.41 X10^3/uL (0.83-4.51); Absolute Neutrophil Count 13.9 X10^3/uL (2.0-7.7); Basophil# 0.02 X10^3/uL; Basophil% 0.1 % (0-1); Eosinophil# 0.09 X10^3/uL; Eosinophils% 0.6 % (0-5); Hematocrit 27.9 % (40-54); Hemoglobin 8.5 g/dL (13.0-16.5); Lymphocyte # 1.41 X10^3/ul (0.83-4.51); Lymphocyte % 8.7 % (19-41); Mean Corp Hgb Conc 30.5 g/dL (32-36); Mean Corpuscular Hgb 27.9 pg (27.0-32.0); Mean Corpuscular Volume 91.5 fL (80-94); Mean Platelet Vol. 9.6 fl (6.2-12.0); Monocyte# 0.75 X10^3/uL; Monocyte% 4.6 % (0-10); NRBC Flagged by Analyzer 0 % (0-5); Neutrophil # 13.85 X10^3/uL (2.7-7.7); Neutrophil % 85.6 % (47-70); Platelet Count 160 K/mm3 (150-450); RBC Distribution Width CV 17.7 % (11.6-14.6); RBC Distribution Width SD 59.3 fl (35.1-43.9); Red Blood Count 3.05 M/mm3 (4.6-6.2); White Blood Count 16.2 K/mm3 (4.4-11.0)
[2022-07-14 06:34] LABS: Anion Gap 1 (5-15); BUN 20 mg/dL (7-18); Calcium,Total 7.4 mg/dL (8.5-10.1); Chloride 115 mmol/L (98-107); Creatinine, Serum 0.77 mg/dL (0.70-1.30); EST Glomerular Filtration Rate 104 mL/min (>60); Est Glom Filt Rate - Afr Amer 126 mL/min (>60); Estimated Creatinine Clearance 61.85 ml/min; Glucose 98 mg/dL (74-106); Potassium 3.1 mmol/L (3.5-5.1); Sodium Level 141 mmol/L (136-145)
[2022-07-14] MEDS: Ipratropium/Albuterol Sulfate 3 ML AMPUL.NEB INHALATION ×3 (07:00→19:30)
--- NOTE | 2022-07-14 07:21 | PN.HOSP_ITS ---
Reason for Visit Reason for Visit: Diagnoses Sepsis, unspecified organism (07/13/22) Metabolic encephalopathy (07/13/22) Pneumonia, unspecified organism (07/13/22) Urinary tract infection, site not specified (07/13/22) Subjective Subjective Feels great. No events overnight. Did not sleep well last night, he would like melatonin tonight. Objective Data Objective Data Vital Signs: Vital Signs Temp Pulse Resp BP Pulse Ox O2 Del Method O2 Flow Rate 36.7 C 58 L 18 95/52 L 99 Room Air 6 07/14/22 02:50 07/14/22 02:50 07/14/22 02:50 07/14/22 02:50 07/14/22 02:50 07/14/22 02:50 07/13/22 11:22 FiO2 11 07/13/22 10:22 Oxygen Flow Rate (L/min) 6 Oxygen Delivery Method Room Air Weight: 83.6 kg Body Mass Index (BMI) 26.4 Intake & Output: Intake and Output for Last 24 Hours 07/12/22 07/13/22 07/14/22 23:59 23:59 23:59 Intake Total 3477.55 / 3477.55 250 / 250 Output Total 750 / 750 300 / 300 Balance 2727.55 / 2727.55 -50 / -50 Lab / Micro Data Result Diagrams: 07/14/22 05:38 07/14/22 05:38 Labs: Laboratory Results - last 24 hr 07/13/22 10:40: WBC 12.7 H, RBC 3.89 L, Hgb 10.9 L, Hct 34.9 L, MCV 89.7, MCH 28.0, MCHC 31.2 L, RDW Std Deviation 56.6 H, RDW Coeff of Nancy 17.4 H, Plt Count 245, MPV 9.8, Immature Gran % (Auto) 0.500, Neut % (Auto) 88.3 H, Lymph % (Auto) 8.9 L, [place] % (Auto) 2.0, Eos % (Auto) 0.2, Baso % (Auto) 0.1, Absolute Neuts (auto) 11.3 H, Absolute Lymphs (auto) 1.13, Nucleated RBC % 0 07/13/22 10:40: PT 14.1, INR 1.1, APTT 26.2 07/13/22 10:40: Sodium 141, Potassium 3.5, Chloride 113 H, Carbon Dioxide 23.0, Anion Gap 5, BUN 24 H, Creatinine 1.03, Estim Creat Clear Calc 60.05, Est GFR (MDRD) Af Amer 90, Est GFR (MDRD) Non-Af 74, BUN/Creatinine Ratio 23.3 H, Glucose 150 H, Calcium 8.4 L, Total Bilirubin 0.60, AST 14 L, ALT 18, Alkaline Phosphatase 69, Total Protein 5.5 L, Albumin 2.7 L, Globulin 2.8, Albumin/Globulin Ratio 1.0 07/13/22 10:40: Lactic Acid 3.0 H* 07/13/22 11:14: Urine Color Yellow, Urine Clarity Cloudy, Urine pH 6.0, Ur Specific Avery 1.010, Urine Protein 30 H, Urine Glucose (UA) Normal, Urine Ketones Negative, Urine Occult Blood 150 H, Urine Nitrite Negative, Urine Bilirubin Negative, Urine Urobilinogen Normal, Ur Leukocyte Esterase 500 H, Urine RBC 10-25 SEEN, Urine WBC >100 SEEN, Ur Squamous Epith Cells 0 SEEN, Urine Bacteria 1+, Urine Mucus 0 SEEN, Urine Yeast 2+ 07/13/22 15:50: Lactic Acid 1.5 07/13/22 17:35: MRSA (PCR) Cancelled 07/13/22 18:00: MRSA (PCR) Negative 07/14/22 05:38: Sodium 141, Potassium 3.1 L, Chloride 115 H, Carbon Dioxide 25.0, Anion Gap 1 L, BUN 20 H, Creatinine 0.77, Estim Creat Clear Calc 61.85, Est GFR (MDRD) Af Amer 126, Est GFR (MDRD) Non-Af 104, BUN/Creatinine Ratio 26.0 H, Glucose 98, Calcium 7.4 L 07/14/22 05:38: WBC 16.2 H, RBC 3.05 L, Hgb 8.5 L, Hct 27.9 L, MCV 91.5, MCH 27.9, MCHC 30.5 L, RDW Std Deviation 59.3 H, RDW Coeff of Nancy 17.7 H, Plt Count 160, MPV 9.6, Immature Gran % (Auto) 0.400, Neut % (Auto) 85.6 H, Lymph % (Auto) 8.7 L, [place] % (Auto) 4.6, Eos % (Auto) 0.6, Baso % (Auto) 0.1, Absolute Neuts (auto) 13.9 H, Absolute Lymphs (auto) 1.41, Nucleated RBC % 0 Micro: Microbiology 07/13/22 Unknown Mucosa - Nose Respiratory Panel (PCR) - Final 07/13/22 16:50 Urine Catheter - [facility] Streptococcus pneumoniae Antigen (M - Final 07/13/22 16:50 Urine Catheter - [facility] Legionella Antigen - Final 07/13/22 10:38 Nasal Secretion SARS-CoV-2 & FLU Antigen (Rapid) - Final Radiography Diagnostic Testing: Radiology Impression Chest X-Ray 07/13/22 11:33 IMPRESSION: Right lung pneumonia, new since 04/28/2022. Electronically Signed: Nick Meier MD at 12:20 EDT , Physical Exam Const alert and average body habitus Constitutional Narrative: up in chair. HEENT head/scalp atraumatic and moist oral mucous membranes Resp normal respiratory effort and no retractions Resp Narrative: RLL crackles. Cardio regular rate, regular rhythm, S1 normal heart sound and S2 normal heart sound GI normal to inspection, nondistended, normoactive bowel sounds, soft to palpation, non-tender and non-distended Extremity normal to inspection Assessment & Plan Assessment/Plan (1) Sepsis: PLAN: Present on admission Secondary to pneumonia with or without a urinary tract infection qSOFA, on admission, was 3 with encephalopathy, tachypnea with a respiratory rate of 25 and blood pressure of 99/58 Patient received 30 cc/kg of IV fluids in the emergency room for total of 2520 mL. Follow-up cultures (2) RLL pneumonia: PLAN: Patient was previously treated with antibiotics with ciprofloxacin and doxycycline as outpatient and completed that 2 days ago. Patient received meropenem in the emergency room. I will the patient on Zosyn and vancomycin Pulmonary toilet Check sputum culture urinary antigens for Streptococcus and Legionella negative Check respiratory panel COVID-19 and influenza were negative Check CT as pt had recently been on 10-days of cipro and doxy. (3) Complicated urinary tract infection: PLAN: Suspected catheter associated urinary tract infection, however, with pneumonia that seem to be more likely source of infection Patient's urinalysis is abnormal but could be just due to chronic irritation from having a chronic Ortiz catheter. Antibiotics as above Follow-up urine cultures (4) Metabolic encephalopathy: PLAN: Secondary to sepsis Patient appeared to have had a dramatic recovery in the emergency room where he was very confused earlier and is back to his normal self. No additional work-up at this time. PLAN: Plan Chronic conditions * Gastric cancer: Follow-up with oncology as outpatient * Betancur's esophagus/GERD: Continue PPI * PMR: Continue with prednisone * BPH: Continue with the tamsulosin and finasteride. Patient has a chronic catheter and will continue with that. Follow-up with his urologist at the [facility] per routine. VTE prophylaxis with low molecular weight heparin CODE STATUS: Addressed the patient is family. Patient is DNR Comfort Care arrest no intubation. Charges/Coding Visit Charges Inpatient E&M: 97202 Subs Hosp L2
[2022-07-14] MEDS: Enoxaparin 40 MG/0.4 ML Syringe SC (07:54)
[2022-07-14] MEDS: Finasteride 5 MG Tablet PO (07:55)
[2022-07-14] MEDS: predniSONE 10 MG Tablet 20 MG PO (07:55)
[2022-07-14] MEDS: guaiFENesin 1,200 MG Tablet 1200 MG PO ×2 (07:55→21:12)
[2022-07-14] MEDS: OLANZapine 10 MG Tablet PO (07:56)
[2022-07-14] MEDS: Pantoprazole Sodium 40 MG Tablet PO ×2 (07:56→21:12)
--- NOTE | 2022-07-14 12:56 | CT_ITS ---
INDICATION: pneumonia EXAMINATION: CT CHEST WITH CONTRAST - CT Chest W/ Contrast Injection TECHNIQUE: Helically acquired images were obtained of the chest following IV contrast. A radiation dose optimization technique was used for this scan. IV Contrast dosage and agent: RADIATION DOSAGE (If Supplied By Facility): CTDIvol = ( 11.39 ) mGy, DLP = ( 437.53 ) mGycm COMPARISON: CT of the abdomen and pelvis dated December 26, 2021 FINDINGS: Motion artifact degrades anatomic detail. LUNGS, PLEURA AND LARGE AIRWAYS: There are small bilateral pleural effusions. There are patchy and groundglass opacities throughout the right lung, most pronounced within the right lower lobe. There are patchy and groundglass opacities within the left lower lobe as well. THYROID: No thyroid lesions. HEART AND PERICARDIUM: Heart size is normal. No pericardial effusion. There are coronary artery calcifications. VESSELS: Thoracic aorta is not dilated. No aortic dissection. No obvious central pulmonary embolism although this study was not performed with the pulmonary embolism protocol. There are peripheral calcifications of the thoracic aorta. There is a Mediport in place with its tip within the caval atrial junction. MEDIASTINUM AND ASHLEE: No mediastinal or hilar adenopathy. Esophagus is unremarkable. No hiatal hernia. UPPER ABDOMEN: No acute pathology. BONES: There are degenerative changes of the thoracic spine. CT/Chest WITH Contrast IMPRESSION: Bilateral pleural effusions associated with bilateral patchy and groundglass opacities throughout the right lung, most pronounced within the right lower lobe, and within the left lower lobe which may be secondary to multifocal pneumonia. Atherosclerosis. Electronically Signed: Deidra Kelly MD at 15:17 EDT ,
[2022-07-14] MEDS: Acetaminophen 325 MG Tablet 650 MG PO (21:12)
[2022-07-14] MEDS: Tamsulosin HCl 0.4 MG Capsule PO (21:12)
[2022-07-14] MEDS: MELATONIN 10 MG TABLET PO (21:12)
[2022-07-15] VITALS (9 sets, daily range): BP systolic 102–129; BP diastolic 52–59; PULSE 64–84; RESP 16–18; TEMP 36.5–36.8; O2SAT 94–99
[2022-07-15 02:30] LABS: Absolute Lymphocyte Count 1.05 X10^3/uL (0.83-4.51); Absolute Neutrophil Count 10.9 X10^3/uL (2.0-7.7); Basophil# 0.01 X10^3/uL; Basophil% 0.1 % (0-1); Eosinophil# 0.03 X10^3/uL; Eosinophils% 0.2 % (0-5); Hematocrit 26.8 % (40-54); Hemoglobin 8.4 g/dL (13.0-16.5); Lymphocyte # 1.05 X10^3/ul (0.83-4.51); Lymphocyte % 8.3 % (19-41); Mean Corp Hgb Conc 31.3 g/dL (32-36); Mean Corpuscular Hgb 28.1 pg (27.0-32.0); Mean Corpuscular Volume 89.6 fL (80-94); Mean Platelet Vol. 9.8 fl (6.2-12.0); Monocyte# 0.56 X10^3/uL; Monocyte% 4.4 % (0-10); NRBC Flagged by Analyzer 0 % (0-5); Neutrophil # 10.85 X10^3/uL (2.7-7.7); Neutrophil % 86.3 % (47-70); Platelet Count 159 K/mm3 (150-450); RBC Distribution Width CV 17.4 % (11.6-14.6); RBC Distribution Width SD 56.6 fl (35.1-43.9); Red Blood Count 2.99 M/mm3 (4.6-6.2); White Blood Count 12.6 K/mm3 (4.4-11.0)
[2022-07-15 02:44] LABS: Anion Gap 3 (5-15); BUN 16 mg/dL (7-18); BUN/Creat Ratio 19.2 RATIO (10-20); Calcium,Total 7.9 mg/dL (8.5-10.1); Chloride 115 mmol/L (98-107); Creatinine, Serum 0.83 mg/dL (0.70-1.30); EST Glomerular Filtration Rate 94 mL/min (>60); Est Glom Filt Rate - Afr Amer 114 mL/min (>60); Estimated Creatinine Clearance 74.51 ml/min; Glucose 169 mg/dL (74-106); Potassium 3.2 mmol/L (3.5-5.1); Sodium Level 142 mmol/L (136-145)
[2022-07-15 02:55] LABS: Vancomycin, Trough Level 12.5 ug/mL (5.0-15.0)
[2022-07-15] MEDS: Vancomycin IV 1,000 MG/200 ML BAG 200 MG IV (03:06)
--- NOTE | 2022-07-15 03:36 | PCM.RX.CS ---
Consult Pharmacy has been consulted to manage selected antiobiotic: Vancomycin Type of Consult: Follow-up Labs: Sodium 142 mmol/L (136-145) 07/15/22 02:20 Potassium 3.2 mmol/L (3.5-5.1) L 07/15/22 02:20 Chloride 115 mmol/L (98-107) H 07/15/22 02:20 Carbon Dioxide 24.0 mmol/L (21.0-32.0) 07/15/22 02:20 Anion Gap 3 (5-15) L 07/15/22 02:20 BUN 16 mg/dL (7-18) 07/15/22 02:20 Creatinine 0.83 mg/dL (0.70-1.30) 07/15/22 02:20 Est GFR (MDRD) Af Amer 114 mL/min (>60) 07/15/22 02:20 Est GFR (MDRD) Non-Af 94 mL/min (>60) 07/15/22 02:20 BUN/Creatinine Ratio 19.2 RATIO (10-20) 07/15/22 02:20 Glucose 169 mg/dL (74-106) H 07/15/22 02:20 Vancomycin Trough 12.5 ug/mL (5.0-15.0) 07/15/22 02:20 Microbiology: Microbiology 07/13/22 11:14 Urine Catheter - [facility] Urine Culture - Preliminary Coag Negative Staph 07/13/22 Unknown Mucosa - Nose Respiratory Panel (PCR) - Final 07/13/22 16:50 Urine Catheter - [facility] Streptococcus pneumoniae Antigen (M - Final 07/13/22 16:50 Urine Catheter - [facility] Legionella Antigen - Final 07/13/22 10:38 Nasal Secretion SARS-CoV-2 & FLU Antigen (Rapid) - Final Pharmacy Plan for Drug Dosing: Pharmacy Service will continue to monitor and adjust dosing as required. TROUGH 12.5 @ 11.5 HRS. INCREASE TO 1250 Q12H AND FOLLOW UP TROUGH PRIOR TO 4TH DOSE
--- NOTE | 2022-07-15 06:42 | PCM.PN.HOSP ---
Reason for Visit Reason for Visit: Diagnoses Sepsis, unspecified organism (07/13/22) Metabolic encephalopathy (07/13/22) Pneumonia, unspecified organism (07/13/22) Urinary tract infection, site not specified (07/13/22) Subjective Subjective Pain works overnight he thinks he got a little confused when he woke up but is feeling much better today and is feeling stronger however still does feel somewhat weak. Eating well. Denies any abdominal pain. Denies any breathing complaints at this time. Objective Data Objective Data Vital Signs: Vital Signs Temp Pulse Resp BP Pulse Ox O2 Del Method O2 Flow Rate 97.7 F L 64 18 124/56 H 98 Room Air 6 07/15/22 03:09 07/15/22 03:09 07/15/22 03:09 07/15/22 03:09 07/15/22 03:09 07/15/22 03:10 07/13/22 11:22 FiO2 11 07/13/22 10:22 Oxygen Flow Rate (L/min) 6 Oxygen Delivery Method Room Air Weight: 83.6 kg Body Mass Index (BMI) 26.4 Intake & Output: Intake and Output for Last 24 Hours 07/13/22 07/14/22 07/15/22 23:59 23:59 23:59 Intake Total 3477.55 / 3477.55 1050.00 / 1050.00 250 / 250 Output Total 750 / 750 1150 / 1150 180 / 180 Balance 2727.55 / 2727.55 -100.00 / -100.00 70 / 70 Lab / Micro Data Result Diagrams: 07/15/22 02:20 07/15/22 02:20 Labs: Laboratory Results - last 24 hr 07/15/22 02:20: Vancomycin Trough 12.5 07/15/22 02:20: WBC 12.6 H, RBC 2.99 L, Hgb 8.4 L, Hct 26.8 L, MCV 89.6, MCH 28.1, MCHC 31.3 L, RDW Std Deviation 56.6 H, RDW Coeff of Nancy 17.4 H, Plt Count 159, MPV 9.8, Immature Gran % (Auto) 0.700, Neut % (Auto) 86.3 H, Lymph % (Auto) 8.3 L, [place] % (Auto) 4.4, Eos % (Auto) 0.2, Baso % (Auto) 0.1, Absolute Neuts (auto) 10.9 H, Absolute Lymphs (auto) 1.05, Nucleated RBC % 0 07/15/22 02:20: Sodium 142, Potassium 3.2 L, Chloride 115 H, Carbon Dioxide 24.0, Anion Gap 3 L, BUN 16, Creatinine 0.83, Estim Creat Clear Calc 74.51, Est GFR (MDRD) Af Amer 114, Est GFR (MDRD) Non-Af 94, BUN/Creatinine Ratio 19.2, Glucose 169 H, Calcium 7.9 L Micro: Microbiology 07/13/22 11:14 Urine Catheter - [facility] Urine Culture - Preliminary Coag Negative Staph 07/13/22 Unknown Mucosa - Nose Respiratory Panel (PCR) - Final 07/13/22 16:50 Urine Catheter - [facility] Streptococcus pneumoniae Antigen (M - Final 07/13/22 16:50 Urine Catheter - Ortiz Legionella Antigen - Final 07/13/22 10:38 Nasal Secretion SARS-CoV-2 & FLU Antigen (Rapid) - Final Radiography Diagnostic Testing: Radiology Impression Chest CT 07/14/22 12:56 IMPRESSION: Bilateral pleural effusions associated with bilateral patchy and groundglass opacities throughout the right lung, most pronounced within the right lower lobe, and within the left lower lobe which may be secondary to multifocal pneumonia. Atherosclerosis. Electronically Signed: Deidra Kelly MD at 15:17 EDT , Physical Exam Narrative General: Alert, no apparent distress HEENT: Atraumatic, normocephalic Eyes: Anicteric, normal conjunctiva, extraocular movements grossly intact Neck: Supple Respiratory: Clear to auscultation bilaterally, normal respiratory effort Cardiovascular: Regular rate GI: Soft, nontender, nondistended Extremities: No edema Musculoskeletal: Moving all extremities Neuro: No overt focal neurological deficits Skin: No rashes appreciated Psych: Cooperative Assessment & Plan Assessment/Plan (1) Sepsis: (2) RLL pneumonia: (3) Complicated urinary tract infection: (4) Metabolic encephalopathy: PLAN: Plan #Sepsis secondary to pneumonia and urinary tract infection?present on admission -Received a 30 cc/kg IV fluids -On vancomycin and Zosyn -Urinary strep and Legionella antigens negative as was COVID-19 and respiratory panel -CT chest showed multifocal pneumonia -Urine culture growing coag negative staph -Blood cultures pending #Right lower lobe pneumonia -See above -Continue Mucinex and nebs #Urinary tract infection -Urine growing coag negative staph -Continue antibiotics, follow blood cultures #Metabolic encephalopathy -Secondary to sepsis and UTI -Improved significantly #Gastric cancer: Follow-up with oncology as outpatient #Betancur's esophagus/GERD: Continue PPI #PMR: Continue with prednisone #BPH: Continue with the tamsulosin and finasteride.? Patient has a chronic catheter and will continue with that.? Follow-up with his urologist at the [facility] per routine. #DVT ppx: Lovenox subcu Nazia Diaz MD Time spent in the patient's overall evaluation,decision-making process, review of diagnostic data, adjustment of management, discussion with other providers, nursing nursing and ancillary staff involved in patient's care documentation, 30 minutes Charges/Coding Visit Charges Inpatient E&M: 09795 Subs Hosp L2
[2022-07-15] MEDS: Ipratropium/Albuterol Sulfate 3 ML AMPUL.NEB INHALATION ×3 (07:10→20:13)
[2022-07-15] MEDS: predniSONE 10 MG Tablet 20 MG PO (07:19)
[2022-07-15] MEDS: Potassium Chloride Oral Tablet 20 MEQ 60 MEQ PO (07:19)
[2022-07-15] MEDS: Enoxaparin 40 MG/0.4 ML Syringe SC (10:04)
[2022-07-15] MEDS: Finasteride 5 MG Tablet PO (10:05)
[2022-07-15] MEDS: guaiFENesin 1,200 MG Tablet 1200 MG PO ×2 (10:05→20:40)
[2022-07-15] MEDS: Pantoprazole Sodium 40 MG Tablet PO ×2 (10:06→20:40)
[2022-07-15] MEDS: OLANZapine 10 MG Tablet PO (10:06)
--- NOTE | 2022-07-15 13:55 | CASEMGMT ---
RN CM into pt room, pt asks for RN CM to come back when present for assessment.
[2022-07-15] MEDS: Oxybutynin 5 MG Tablet PO ×2 (13:56→20:40)
[2022-07-15 15:03] LABS: M R Staph aureus DNA By PCR Negative (Negative); Probe Check PASS; Specimen Processing Control PASS
--- NOTE | 2022-07-15 15:10 | CASEMGMT ---
QUINTON REA Assessment: Face to Face with pt for initial transition planning/care coordination assessment. QUINTON REA introduced self and role at [facility], pt voices understanding and consents to assessment. Pt is A/O x4 and answers all questions appropriately at this time. Pt defers most questions to who is in room. Care providers, pharmacy, and demographics verified/updated. Admitting Dx: sepsis, UTI PCP:[facility] Specialists:Champ, onc; Bethany, uro; Ellie, rheum Preferred Pharmacy: [facility] Insurance: Medicare Prescription Benefit: yes LNOK: Kristyn Gonsalez, Living Arrangements: Pt lives with in a bilevel home with 7 steps to enter, a landing and another 7 steps. The pt main living area is on that floor then. Pt reports he is I in ADL's until this hospitalization. Pt denies concerns at home. Transportation: Pt drives self and denies concerns with transportation. DME/HHC/SNF: Pt has a grab bar in the shower and at the toilet, walk in shower, FWW and bed cane. Pt does not typically use AD. Pt is active with [facility] SN monthly for cath changes. Pt states he has had ST and PT in the past. Pt denies SNF stays. Pt states no concerns with going home at time of dc. He would like to resume SN services, swallow eval per pt tomorrow. Pt denies need for list of other [facility] agencies. Pt is active with palliative care and email received confirming this. Pt states no further concerns/needs. CM to follow. Advised pt to ask CM if any further question/concerns/needs arise, voices understanding. Pt Goal: Home with HHC resuming Plan: Home with HHC resuming
[2022-07-15] MEDS: Ensure Plus High Protein 120 ML LIQUID PO (17:10)
[2022-07-15] MEDS: MELATONIN 10 MG TABLET PO (20:40)
[2022-07-15] MEDS: Tamsulosin HCl 0.4 MG Capsule PO (20:40)
[2022-07-16] VITALS (8 sets, daily range): BP systolic 96–148; BP diastolic 45–61; PULSE 68–83; RESP 16–20; TEMP 36.5–37; O2SAT 95–98
[2022-07-16] MEDS: Ipratropium/Albuterol Sulfate 3 ML AMPUL.NEB INHALATION ×4 (01:34→19:44)
[2022-07-16] MEDS: Haloperidol Lactate 5 MG/ML Vial 4 MG IM (01:57)
[2022-07-16] MEDS: Oxybutynin 5 MG Tablet PO ×3 (05:23→21:14)
[2022-07-16 06:41] LABS: Absolute Lymphocyte Count 1.31 X10^3/uL (0.83-4.51); Absolute Neutrophil Count 8.9 X10^3/uL (2.0-7.7); Basophil# 0.02 X10^3/uL; Basophil% 0.2 % (0-1); Eosinophil# 0.02 X10^3/uL; Eosinophils% 0.2 % (0-5); Hematocrit 30.1 % (40-54); Hemoglobin 9.4 g/dL (13.0-16.5); Lymphocyte # 1.31 X10^3/ul (0.83-4.51); Lymphocyte % 12.1 % (19-41); Mean Corp Hgb Conc 31.2 g/dL (32-36); Mean Corpuscular Hgb 28.4 pg (27.0-32.0); Mean Corpuscular Volume 90.9 fL (80-94); Mean Platelet Vol. 9.8 fl (6.2-12.0); Monocyte# 0.51 X10^3/uL; Monocyte% 4.7 % (0-10); NRBC Flagged by Analyzer 0 % (0-5); Neutrophil # 8.86 X10^3/uL (2.7-7.7); Neutrophil % 81.6 % (47-70); Platelet Count 205 K/mm3 (150-450); RBC Distribution Width CV 18.1 % (11.6-14.6); RBC Distribution Width SD 59.9 fl (35.1-43.9); Red Blood Count 3.31 M/mm3 (4.6-6.2); White Blood Count 10.9 K/mm3 (4.4-11.0)
[2022-07-16 07:10] LABS: Anion Gap 1 (5-15); BUN 11 mg/dL (7-18); BUN/Creat Ratio 11.1 RATIO (10-20); Calcium,Total 8.4 mg/dL (8.5-10.1); Chloride 115 mmol/L (98-107); Creatinine, Serum 0.99 mg/dL (0.70-1.30); EST Glomerular Filtration Rate 78 mL/min (>60); Est Glom Filt Rate - Afr Amer 94 mL/min (>60); Estimated Creatinine Clearance 62.47 ml/min; Glucose 122 mg/dL (74-106); Potassium 3.3 mmol/L (3.5-5.1); Sodium Level 143 mmol/L (136-145)
[2022-07-16] MEDS: Enoxaparin 40 MG/0.4 ML Syringe SC (09:44)
[2022-07-16] MEDS: Finasteride 5 MG Tablet PO (09:44)
[2022-07-16] MEDS: guaiFENesin 1,200 MG Tablet 1200 MG PO ×2 (09:44→21:11)
[2022-07-16] MEDS: Ensure Plus High Protein 120 ML LIQUID PO ×2 (09:44→14:17)
[2022-07-16] MEDS: predniSONE 10 MG Tablet 20 MG PO (09:45)
[2022-07-16] MEDS: OLANZapine 10 MG Tablet PO (09:45)
[2022-07-16] MEDS: Pantoprazole Sodium 40 MG Tablet PO ×2 (09:46→21:11)
[2022-07-16] MEDS: Potassium Chloride Oral Tablet 20 MEQ 40 MEQ PO (09:50)
--- NOTE | 2022-07-16 09:54 | PCM.PN.HOSP ---
Reason for Visit Reason for Visit: Diagnoses Sepsis, unspecified organism (07/13/22) Metabolic encephalopathy (07/13/22) Pneumonia, unspecified organism (07/13/22) Urinary tract infection, site not specified (07/13/22) Subjective Subjective Had episode of sundowning overnight and received Haldol and this morning was tired and somewhat confused but did improve throughout the day and was feeling better towards the afternoon. did say that he sundown's at home and they have not been able to find anything that is worked particularly well for this. Patient for swallow eval today Objective Data Objective Data Vital Signs: Vital Signs Temp Pulse Resp BP Pulse Ox O2 Del Method O2 Flow Rate 97.7 F L 83 18 96/45 L 97 Room Air 6 07/16/22 09:41 07/16/22 09:41 07/16/22 09:41 07/16/22 09:41 07/16/22 09:41 07/16/22 09:41 07/13/22 11:22 FiO2 11 07/13/22 10:22 Oxygen Flow Rate (L/min) 6 Oxygen Delivery Method Room Air Weight: 83.6 kg Body Mass Index (BMI) 26.4 Intake & Output: Intake and Output for Last 24 Hours 07/14/22 07/15/22 07/16/22 23:59 23:59 23:59 Intake Total 1050.00 / 1050.00 625 / 625 375 / 375 Output Total 1150 / 1150 1480 / 1480 1550 / 1550 Balance -100.00 / -100.00 -855 / -855 -1175 / -1175 Lab / Micro Data Result Diagrams: 07/16/22 06:25 07/16/22 06:25 Labs: Laboratory Results - last 24 hr 07/15/22 10:00: MRSA (PCR) Negative 07/16/22 06:25: WBC 10.9, RBC 3.31 L, Hgb 9.4 L, Hct 30.1 L, MCV 90.9, MCH 28.4, MCHC 31.2 L, RDW Std Deviation 59.9 H, RDW Coeff of Nancy 18.1 H, Plt Count 205, MPV 9.8, Immature Gran % (Auto) 1.200 H, Neut % (Auto) 81.6 H, Lymph % (Auto) 12.1 L, [place] % (Auto) 4.7, Eos % (Auto) 0.2, Baso % (Auto) 0.2, Absolute Neuts (auto) 8.9 H, Absolute Lymphs (auto) 1.31, Nucleated RBC % 0 07/16/22 06:25: Sodium 143, Potassium 3.3 L, Chloride 115 H, Carbon Dioxide 27.0, Anion Gap 1 L, BUN 11, Creatinine 0.99, Estim Creat Clear Calc 62.47, Est GFR (MDRD) Af Amer 94, Est GFR (MDRD) Non-Af 78, BUN/Creatinine Ratio 11.1, Glucose 122 H, Calcium 8.4 L Micro: Microbiology 07/13/22 11:14 Urine Catheter - Ortiz Urine Culture - Preliminary Coag Negative Staph Klebsiella pneumoniae sp pneum 07/13/22 10:40 Blood Culture (Wb) - Venous Blood Culture - Preliminary No growth in 48 hours. 07/13/22 10:40 Blood Culture (Wb) - Venous Blood Culture - Preliminary No growth in 48 hours. 07/13/22 Unknown Mucosa - Nose Respiratory Panel (PCR) - Final 07/13/22 16:50 Urine Catheter - Ortiz Streptococcus pneumoniae Antigen (M - Final 07/13/22 16:50 Urine Catheter - Ortiz Legionella Antigen - Final 07/13/22 10:38 Nasal Secretion SARS-CoV-2 & FLU Antigen (Rapid) - Final Physical Exam Narrative General: More alert as the day went on without apparent distress HEENT: Atraumatic, normocephalic Eyes: Anicteric, normal conjunctiva, extraocular movements grossly intact Neck: Supple Respiratory: Clear to auscultation bilaterally, normal respiratory effort Cardiovascular: Regular rate GI: Soft, nontender, nondistended Extremities: No edema Musculoskeletal: Moving all extremities Neuro: No overt focal neurological deficits Skin: No rashes appreciated Psych: Cooperative Assessment & Plan Assessment/Plan (1) Sepsis: (2) RLL pneumonia: (3) Complicated urinary tract infection: (4) Metabolic encephalopathy: PLAN: Plan #Sepsis secondary to pneumonia and urinary tract infection?present on admission -Received a 30 cc/kg IV fluids -On vancomycin and Zosyn -Urinary strep and Legionella antigens negative as was COVID-19 and respiratory panel -CT chest showed multifocal pneumonia -Urine culture growing coag negative staph -Blood cultures pending -07/16: Final cultures pending, will likely DC tomorrow #Right lower lobe pneumonia -See above -Continue Mucinex and nebs #Urinary tract infection -Urine growing coag negative staph -Continue antibiotics, follow blood cultures -07/16: Final culture results pending, will likely DC tomorrow #Metabolic encephalopathy -Secondary to sepsis and UTI -Improved significantly -07/16: Does sundown at bedtime confirmed by even at home, continue melatonin, takes Hiprex at home which was continued, will add mirtazapine. #Gastric cancer: Follow-up with oncology as outpatient #Betancur's esophagus/GERD: Continue PPI #PMR: Continue with prednisone #BPH: Continue with the tamsulosin and finasteride.? Patient has a chronic catheter and will continue with that.? Follow-up with his urologist at the [facility] per routine. #DVT ppx: Lovenox subcu Nazia iDaz MD Time spent in the patient's overall evaluation,decision-making process, review of diagnostic data, adjustment of management, discussion with other providers, nursing nursing and ancillary staff involved in patient's care documentation, 30 minutes Charges/Coding Visit Charges Inpatient E&M: 43548 Subs Hosp L2
[2022-07-16] MEDS: 0.9% Saline Lock 10 ML Syringe IV ×2 (12:12→14:17)
--- NOTE | 2022-07-16 14:35 | ST.MBS ---
Modified Barium Swallow - Patient Information Study Date: 07/16/22 Study Time: 12:25 Direct Billable Minutes: 106 Total Minutes procedure & reportin Diagnosis: RLL PNA (J18.9) Referring Physician: Nazia Diaz Reason for Referral: Objectively assess swallow function, assess risk for aspiration, and determine recommendations for least restrictive diet textures and compensatory strategies to improve safety of swallow. Medical History: José Luis Gonsalez is a 81-year-old male who presented to ER with confusion and rigors on 07/13/2022. Recently, patient was taking cipro and doxycycline for 10 days, which she completed on 07/11. He was taking abx for a pneumonia and UTI. In ED, patient was encephalopathic. He received IVF. He was diagnosed with pneumonia and UTI. Given his recent abx, he received meropenem. While in the ED, he had a BM and his mental status returned to normal. Per conversation with pt's Kristyn, via phone call, pt was discharged from home health speech therapy, on thin liquids with a hard swallow, and was scheduled for a repeat MBSS which was cancelled due to pt illness and chemotherapy. Pt's reported she began thickening pt's liquids to slightly thick liquids (nectar thick liquids with extra water) for ~2.5 weeks, due to PNA and UTI dx. Pt's reported pt has been treated for UTI and PNA with antibiotics for the last 10 days. Additionally, pt's reported pt had no PNA's at home when on nectar/mildly thick liquids. Chest x-ray completed on 07/13/22 with right lung pneumonia. Chest CT completed on 07/14/22 with Bilateral pleural effusions associated with bilateral patchy and groundglass opacities throughout the right lung, most pronounced within the right lower lobe, and within the left lower lobe which may be secondary to multifocal pneumonia. Per most recent MBSS completed on 05/20/22, pt was recommended Easy to Chew Textures, and nectar/mildly thick liquids. Thin by cup sips with PAS of 5, and thin by tsp with PAS of 2. See MBSS completed on 05/20/22 for full report. Pt was seen by speech over the weekend, 07/14/22, and recommended for thin liquids/regular textures, with recommended repeat MBSS during current hospitalization. See speech evaluation on 07/14/22 for full report. Pt seen again on 07/15/22 by speech and recommended for thin liquids by tsp with hard swallow, soft and bite size textures, and plan for MBSS on 07/16/22. Current Diet Ordered: Soft and bite size textures / Thin liquids Dentition: Upper Dentures, Lower Dentures Mental Status: Impaired - confusion Respiratory Status: Oxygenating on Room Air - Penetration-Aspiration Scale Penetration-Aspiration Scale: OBJECTIVE ASSESSMENT OF SWALLOW FUNCTION (QUANTITATIVE ? PER TRIAL): PENETRATION / ASPIRATION SCALE (ALLAN): 1 = does not enter airway 2 = enters airway/above vocal folds/ejected 3 = enters airway/above vocal folds/not ejected 4 = enters airway/contacts vocal folds/ejected 5 = enters airway/contacts vocal folds/not ejected 6 = enters airway/below vocal folds/ejected 7 = enters airway/below vocal folds/not ejected despite effort 8 = enters airway/below vocal folds/no effort VIDEOFLOROSCOPIC SCALE SCORE (ALLAN): Grade I = aspiration of material that has penetrated into the laryngeal vestibule, intact cough reflex Grade II = aspiration < 10 % of the bolus, intact cough reflex Grade III = aspiration of < 10 % of the bolus, reduced cough reflex or aspiration of > 10 % of the bolus, intact cough reflex Grade IV = aspiration of > 10 % of the bolus, reduced cough reflex - Penetration-Aspiration Scale Score Thin Liquid via teaspoon Result: 2= enter airway/above vocal folds/ejected Thin Liquid via small single sip from cup Effortful swallow Result: 1= does not enter airway [place] Thick Liquid via small single sip from cup Result: 2= enter airway/above vocal folds/ejected Pudding via teaspoon w/esophageal screen Result: 2= enter airway/above vocal folds/ejected - Trace post prandial penetration to the VF, no cough response. 1/2 Cookie Result: 1= does not enter airway - Trace post prandial penetration to the VF, no cough response. Thin Liquid via teaspoon Effortful swallow cued cough and re-swallow Result: 4= enters airway/contacts vocal folds/ejected - Trace post prandial penetration to the VF. - Oral Phase Labial Seal: No Labial Escape Tongue Control During Bolus Hold: Posterior escape of greater than half of bolus Bolus Preparation/Mastication: Slow prolonged chewing/mashing with complete recollection Bolus Transport/Lingual Motion: Repetitive/disorganized tongue motion Oral Residue: Residue collection on oral structures - Pharyngeal Phase Initiation of Pharyngeal Swallow: Bolus head in pyriforms Soft Palate Elevation: No bolus between soft palate and pharyngeal wall Laryngeal Elevation: Partial superior movement thyroid cart/partial apprx aryt-epig petiole Anterior Hyoid Excursion: Partial anterior movement Epiglottic Movement: Partial inversion Laryngeal Vestibule Closure at Height of Swallow: Incomplete; narrow column of air/contrast in laryngeal vestibule Pharyngeal Stripping Wave: Present - diminished Pharyngoesophageal Segment Opening: Parital distension and partial duration; parital obstruction of flow Tongue Base Retraction: Wide column of contrast between tongue base & post. pharyngeal wall Pharyngeal Residue: Collection of residue within or on pharyngeal structures - Esophageal Phase Esophageal Clearance: Complete clearance - Treatment Strategies Effects of treatment strategies attemped:: Double swallow = somewhat effective. Decreased bolus size = somewhat effective. Effortful swallow = no impact. Cough and re-swallow = effective. - Diagnosis/Impression Diagnosis: Moderate Oropharyngeal Dysphagia (R13.12) Impression: The oral phase is primarily marked by.... -Decreased bolus control with premature posterior loss of bolus to the pyriforms prior to swallow onset most notable with thin and mildly/nectar thickened liquid trials. -Disorganized tongue motion for A-P transport, most notable with pudding and cookie. -Prolonged, but adequate mastication of???cookie. -Piecemeal deglutition of pudding, pt independently cleared moderate oral residue with independent initiation of a double swallow. The pharyngeal phase is primarily marked by... -Decreased airway closure during the swallow due to decreased anterior hyoid excursion, laryngeal elevation, and partial epiglottic inversion on certain trials. -Moderately decreased tongue base retraction, moderately decreased pharyngeal stripping wave, and mildly decreased UES opening contributing to mild-moderate pharyngeal residues after the swallow, which the patient somewhat cleared with independent use of double swallows. Residues remaining in the pyriforms spilled post prandially to the vocal folds for nectar and pudding thick. Residues of thin liquids remaining in the pyriforms resulted in SILENT post prandial aspiration. He benefits from double swallow, which he independently initiated throughout the study. -Laryngeal penetration of across all liquid and pudding consistencies. No cough reflex with post prandial aspiration of thin liquids by cup or with post prandial laryngeal penetration of nectar thick liquids by cup & pudding by tsp to the vocal folds. Patient required a cued cough and re-swallow to clear post prandial penetration from pharyngeal residues and to clear laryngeal penetration of thin liquids. - Recommendations Diet: Thin Liquids - Soft and Bite Size Textures Comment: Cough and re-swallow with EVERY bite/sip. Compensatory Strategies: Small Bites, Liquid by Teaspoon Only, Slow Rate, Multiple Swallows, Sitting upright, Assist with verbal cues to use recommended strategies Supervision: 1:1 Close Supervision Recommend Repeat Modified Barium Swallow: TBD Need for Skilled Speech Therapy Services: Yes Comment: Will recommend the patient for intensive dysphagia therapy to address deficits in oropharyngeal swallow function. Will recommend the patient for oropharyngeal strengthening to improve tongue base retraction, hyolaryngeal elevation, pharyngeal stripping wave, and duration of UES opening (Negar, CTAR, effortful swallow, effortful breath hold and swallow, Samra). The patient and family would benefit from thorough education regarding diet recommendations and recommended compensatory strategies.? Would strongly consider the patient for implementation of [place] Free Water Protocol (FFWP) at next level of care to encourage hydration and promote increased opportunities for swallowing throughout the day. Education Completed: 1. Described result of evaluation., 2. Pt understands evaluation & agrees with goals and treatment plan., 7. Pt requires further education on strategies & risks. - Status Active ST Patient: Active - Contact Information [facility] Speech Therapy:: Joseline Stubbs M.A. [facility] Speech-Language Pathologist [facility] [address] [place] [address] [email or web address] [phone] 07/16/22 15:15
--- NOTE | 2022-07-16 15:43 | CASEMGMT ---
Discussed joycelyn salazar with ST, will add ST to C orders. Updated Deja at [facility].
[2022-07-16] MEDS: MELATONIN 10 MG TABLET PO (21:11)
[2022-07-16] MEDS: Tamsulosin HCl 0.4 MG Capsule PO (21:11)
[2022-07-16] MEDS: Mirtazapine 15 MG Tablet 7.5 MG PO (21:11)
[2022-07-17 02:55] VITALS: BP 148/77; PULSE 64; RESP 18; TEMP 36.9; O2SAT 99
[2022-07-17 03:10] LABS: Absolute Lymphocyte Count 1.06 X10^3/uL (0.83-4.51); Absolute Neutrophil Count 9.7 X10^3/uL (2.0-7.7); Basophil# 0.02 X10^3/uL; Basophil% 0.2 % (0-1); Eosinophil# 0.03 X10^3/uL; Eosinophils% 0.3 % (0-5); Hematocrit 30.6 % (40-54); Hemoglobin 9.4 g/dL (13.0-16.5); Lymphocyte # 1.06 X10^3/ul (0.83-4.51); Lymphocyte % 9.2 % (19-41); Mean Corp Hgb Conc 30.7 g/dL (32-36); Mean Corpuscular Hgb 28.1 pg (27.0-32.0); Mean Corpuscular Volume 91.6 fL (80-94); Mean Platelet Vol. 10.2 fl (6.2-12.0); Monocyte# 0.55 X10^3/uL; Monocyte% 4.8 % (0-10); NRBC Flagged by Analyzer 0 % (0-5); Neutrophil # 9.66 X10^3/uL (2.7-7.7); Neutrophil % 84.3 % (47-70); Platelet Count 225 K/mm3 (150-450); RBC Distribution Width CV 18.2 % (11.6-14.6); RBC Distribution Width SD 61.1 fl (35.1-43.9); Red Blood Count 3.34 M/mm3 (4.6-6.2); White Blood Count 11.5 K/mm3 (4.4-11.0)
[2022-07-17 03:40] LABS: Anion Gap 2 (5-15); BUN 11 mg/dL (7-18); Calcium,Total 8.5 mg/dL (8.5-10.1); Chloride 112 mmol/L (98-107); Creatinine, Serum 0.85 mg/dL (0.70-1.30); EST Glomerular Filtration Rate 93 mL/min (>60); Est Glom Filt Rate - Afr Amer 112 mL/min (>60); Estimated Creatinine Clearance 72.76 ml/min; Glucose 152 mg/dL (74-106); Potassium 3.2 mmol/L (3.5-5.1); Sodium Level 141 mmol/L (136-145)
[2022-07-17 03:43] LABS: Vancomycin, Trough Level 20.6 ug/mL (5.0-15.0)
--- NOTE | 2022-07-17 03:50 | PCM.RX.CS ---
Consult Pharmacy has been consulted to manage selected antiobiotic: Vancomycin Type of Consult: Follow-up Labs: Sodium 141 mmol/L (136-145) 07/17/22 02:40 Potassium 3.2 mmol/L (3.5-5.1) L 07/17/22 02:40 Chloride 112 mmol/L (98-107) H 07/17/22 02:40 Carbon Dioxide 27.0 mmol/L (21.0-32.0) 07/17/22 02:40 Anion Gap 2 (5-15) L 07/17/22 02:40 BUN 11 mg/dL (7-18) 07/17/22 02:40 Creatinine 0.85 mg/dL (0.70-1.30) 07/17/22 02:40 Est GFR (MDRD) Af Amer 112 mL/min (>60) 07/17/22 02:40 Est GFR (MDRD) Non-Af 93 mL/min (>60) 07/17/22 02:40 BUN/Creatinine Ratio 13.0 RATIO (10-20) 07/17/22 02:40 Glucose 152 mg/dL (74-106) H 07/17/22 02:40 Vancomycin Trough 20.6 ug/mL (5.0-15.0) H 07/17/22 02:40 Microbiology: Microbiology 07/13/22 11:14 Urine Catheter - Ortiz Urine Culture - Final Presumptive C albicans Klebsiella pneumoniae sp pneum 07/13/22 10:40 Blood Culture (Wb) - Venous Blood Culture - Preliminary No growth in 48 hours. 07/13/22 10:40 Blood Culture (Wb) - Venous Blood Culture - Preliminary No growth in 48 hours. 07/13/22 Unknown Mucosa - Nose Respiratory Panel (PCR) - Final 07/13/22 16:50 Urine Catheter - Ortiz Streptococcus pneumoniae Antigen (M - Final 07/13/22 16:50 Urine Catheter - Ortiz Legionella Antigen - Final 07/13/22 10:38 Nasal Secretion SARS-CoV-2 & FLU Antigen (Rapid) - Final Goal Trough: 15-20 mcg/mL Pharmacy Plan for Drug Dosing: Pharmacy Service will continue to monitor and adjust dosing as required. TROUGH 20.6 @ 11 HRS. SCr DECREASED FROM 0.99 TO 0.85. NO CHANGES, FOLLOW UP TROUGH IN 24 HOURS Follow-Up Labs: Trough Vancomycin Labs to be done on [date and time ordered]: 07/18 @ 2400
[2022-07-17] MEDS: Oxybutynin 5 MG Tablet PO (05:56)
[2022-07-17 07:10] VITALS: PULSE 75; RESP 24; O2SAT 95
[2022-07-17] MEDS: Ipratropium/Albuterol Sulfate 3 ML AMPUL.NEB INHALATION (07:10)
--- NOTE | 2022-07-17 07:10 | CPS ---
Pt tore mask off face, won't finish tx or do I.S., is confused.
[2022-07-17] MEDS: Potassium Chloride 10mEq/100mL 10 MEQ/100 ML IV.SOLN. 100 MEQ IV BOLUS ×3 (07:33→10:29)
[2022-07-17 07:45] VITALS: BP 148/53; PULSE 96; RESP 18; TEMP 36.6; O2SAT 96
[2022-07-17] MEDS: predniSONE 10 MG Tablet 20 MG PO (08:56)
[2022-07-17] MEDS: Ensure Plus High Protein 120 ML LIQUID PO (08:58)
[2022-07-17] MEDS: Pantoprazole Sodium 40 MG Tablet PO (10:29)
[2022-07-17] MEDS: Enoxaparin 40 MG/0.4 ML Syringe SC (10:29)
[2022-07-17] MEDS: guaiFENesin 1,200 MG Tablet 1200 MG PO (10:29)
[2022-07-17] MEDS: Finasteride 5 MG Tablet PO (10:30)
--- NOTE | 2022-07-17 11:37 | DS.PCM_ITS ---
Providers Date of Admission: 07/13/22 Date of Discharge: 07/17/22 Primary Care Physician: Dr. Cecelia Villasenor, DO Reason For Visit: Pneumonia Diagnosis Discharge Diagnosis (1) Sepsis: Status: Acute Code(s): A41.9 - Sepsis, unspecified organism (2) RLL pneumonia: Status: Acute Code(s): J18.9 - Pneumonia, unspecified organism (3) Complicated urinary tract infection: Status: Acute Code(s): N39.0 - Urinary tract infection, site not specified (4) Metabolic encephalopathy: Status: Acute Code(s): G93.41 - Metabolic encephalopathy Plan #Sepsis secondary to pneumonia- present on admission #Polymyalgia rheumatica #Right lower lobe pneumonia #Urinary tract infection ruled out #Metabolic encephalopathy- resolved #Hyperactive delirium-resolved #Gastric cancer #Betancur's esophagus/GERD #BPH Medications at Discharge Home Medications ondansetron HCl 4 mg tablet 8 mg PO Q8H PRN PRN Nausea 12/06/21 pantoprazole 40 mg tablet,delayed release (Protonix) 40 mg PO BID GERD 12/06/21 tamsulosin 0.4 mg capsule 0.4 mg PO QHS urine flow 12/06/21 hydrocodone-homatropine 5 mg-1.5 mg/5 mL oral syrup 5 ml PO Q6H PRN Cough 0 04/19/22 finasteride 5 mg tablet 5 mg PO DAILY 04/28/22 oxybutynin chloride 5 mg tablet 5 mg PO TID bladder 07/15/22 amoxicillin 875 mg-potassium clavulanate 125 mg tablet 1 tab PO BID 2 days #5 tabs 07/17/22 mirtazapine 15 mg tablet 7.5 mg PO QHS 30 days #15 tabs 07/17/22 prednisone 10 mg tablet 10 mg PO DAILY Check with primary doctor 30 days #0 tabs 07/17/22 Hospital Course Procedures - (Modified barium swallow, chest CT) Summary of Care Provided Minutes Spent on Discharge: 35 Hospital Course: 81-year-old male with gastric carcinoma, polymyalgia rheumatica, 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 He recently was taking Cipro and Doxy which he completed on 07/11 and reportedly this was for pneumonia and UTI. In the ED he was confused, there was concern for right lower lobe pneumonia and possible UA. Was given IVF and given recent antibiotics he was given meropenem. Mental status returned to normal while he was in the ED. He was diagnosed with sepsis secondary to pneumonia versus urinary tract infection due to qSOFA on admission being 3 with encephalopathy, tachypnea with respiratory rate of 25 and blood pressure of 99/58. He was given 30 cc/kg and IV fluids and he was admitted and started on vancomycin and Zosyn and cultures were obtained. CT chest showed what was co ncerning for multifocal pneumonia, respiratory panel, COVID, urine antigens negative. Blood cultures no growth to date. Initially concern for UTI and urine culture report initially had said coag negative staph and gram-negative with colony count less than 1000. Coag negative staph amended to presumptive Suki albicans and suspect that this is colonization as he improved without antifungals. Given clinical picture and findings suspect sepsis was secondary to multifocal pneumonia. Patient improved significantly during admission. There was some concern about his swallowing and he had modified barium swallow which did show some dysphagia and modified diet recommended. On the night of 07/15 was very delirious which reports he sundown's at home at baseline and he received Haldol, the next day he was tired and confused, improved as the day went on. After further discussion added mirtazapine and he slept well and tolerated his medication well. On day of discharge he felt much better with no acute complaints. MRSA swab negative so antibiotics on discharge did not include MRSA coverage. Discharge instructions as followed: -You will be discharged on Augmentin for your infection, you will need to take 1 dose tonight followed by twice daily for 2 more days -Would recommend against continuing hydrocodone if at all possible due to increased risk of confusion and falls. -It is recommended that you adhere to a modified diet due to swallowing difficulty: It is recommended that you eat with direct supervision, liquids by teaspoon only, cough and re-swallow with each bite/sip.? You will have speech therapy added to your home health care -Please stop your Zyprexa as per your discussion with Dr. Oakes -You will be started on a medication, mirtazapine, which she will take at bedtime -Please follow-up with Dr. Oakes upon discharge -Continue your 10 mg of prednisone daily for your polymyalgia rheumatica -Would recommend lab work (BMP) to check your potassium level in 2 to 3 days through your primary care physician's office.? Please call their office upon discharge to obtain order for lab work. -Please call your primary care provider's office upon discharge to schedule a hospital follow up within 1 week. -For any concerning signs or symptoms please call 911 or proceed to the nearest emergency department Physical Exam Narrative General: Alert and oriented, no acute distress HEENT: Atraumatic, normocephalic Eyes: Anicteric, normal conjunctiva, extraocular movements grossly intact Neck: Supple Respiratory: Clear to auscultation bilaterally, normal respiratory effort Cardiovascular: Regular rate GI: Soft, nontender, nondistended Extremities: No edema Musculoskeletal: Moving all extremities Neuro: No overt focal neurological deficits Skin: No rashes appreciated Psych: Cooperative Weight / BMI Weight Weight: 83.6 kg Body Mass Index (BMI) 26.4 ABG / Lab / Microbiology Data Result Diagrams: 07/17/22 02:40 07/17/22 02:40 Laboratory: Laboratory Results - last 24 hr 07/17/22 02:40: Vancomycin Trough 20.6 H 07/17/22 02:40: WBC 11.5 H, RBC 3.34 L, Hgb 9.4 L, Hct 30.6 L, MCV 91.6, MCH 28.1, MCHC 30.7 L, RDW Std Deviation 61.1 H, RDW Coeff of Nancy 18.2 H, Plt Count 225, MPV 10.2, Immature Gran % (Auto) 1.200 H, Neut % (Auto) 84.3 H, Lymph % (Auto) 9.2 L, [place] % (Auto) 4.8, Eos % (Auto) 0.3, Baso % (Auto) 0.2, Absolute Neuts (auto) 9.7 H, Absolute Lymphs (auto) 1.06, Nucleated RBC % 0 07/17/22 02:40: Sodium 141, Potassium 3.2 L, Chloride 112 H, Carbon Dioxide 27.0, Anion Gap 2 L, BUN 11, Creatinine 0.85, Estim Creat Clear Calc 72.76, Est GFR (MDRD) Af Amer 112, Est GFR (MDRD) Non-Af 93, BUN/Creatinine Ratio 13.0, Glucose 152 H, Calcium 8.5 Microbiology: Microbiology 07/13/22 11:14 Urine Catheter - Ortiz Urine Culture - Final Presumptive C albicans Klebsiella pneumoniae sp pneum 07/13/22 10:40 Blood Culture (Wb) - Venous Blood Culture - Preliminary No growth in 48 hours. 07/13/22 10:40 Blood Culture (Wb) - Venous Blood Culture - Preliminary No growth in 48 hours. 07/13/22 Unknown Mucosa - Nose Respiratory Panel (PCR) - Final 07/13/22 16:50 Urine Catheter - Ortiz Streptococcus pneumoniae Antigen (M - Final 07/13/22 16:50 Urine Catheter - Ortiz Legionella Antigen - Final 07/13/22 10:38 Nasal Secretion SARS-CoV-2 & FLU Antigen (Rapid) - Final D/C Instructions Discharge Diet: - (eat with direct supervision, liquids by teaspoon only, cough and reswallow with each bite/sip) Meaningful Use Info Meaningful Use Diagnoses (Choose all that apply): None applicable Discharge Plan Admission Admit Date/Time: 07/13/22 13:14 Primary Reason for Your Visit: Confusion Attending Provider: Nazia Diaz Primary Care Provider: Cecelia Villasenor Consulting Providers: Giovani Emerson Instructions Patient Instructions: Indwelling Urinary Catheter Dc, Ortiz Catheter Male Ch, ED Ortiz Catheter, Care Additional Instructions / Restrictions: DISCHARGE INSTRUCTIONS PLEASE READ *Please take this with you to your next doctors appointment* -You will be discharged on Augmentin for your infection, you will need to take 1 dose tonight followed by twice daily for 2 more days -Would recommend against continuing hydrocodone if at all possible due to increased risk of confusion and falls. -It is recommended that you adhere to a modified diet due to swallowing difficulty: It is recommended that you eat with direct supervision, liquids by teaspoon only, cough and re-swallow with each bite/sip. You will have speech therapy added to your home health care -Please stop your Zyprexa as per your discussion with Dr. Oakes -You will be started on a medication, mirtazapine, which she will take at bedtime -Please follow-up with Dr. Oakes upon discharge -Continue your 10 mg of prednisone daily for your polymyalgia rheumatica -Would recommend lab work (BMP) to check your potassium level in 2 to 3 days through your primary care physician's office. Please call their office upon discharge to obtain order for lab work. -Please call your primary care provider's office upon discharge to schedule a h ospital follow up within 1 week. -For any concerning signs or symptoms please call 911 or proceed to the nearest emergency department Discharge Orders/Prescriptions Prescriptions: New mirtazapine 15 mg Tablet 7.5 mg PO QHS 30 Days Qty: 15 0RF amoxicillin-pot clavulanate 875-125 mg tablet 1 tab PO BID 2 Days Qty: 5 0RF Continued ondansetron HCl 4 mg tablet 8 mg PO Q8H PRN PRN (Reason: Nausea) Label Comments: TAKE 1 TABLET BY MOUTH EVERY 8 HOURS NEEDED FOR NAUSEA AND VOMITING pantoprazole [Protonix] 40 mg Tablet,Delayed Release (Dr/Ec) 40 mg PO BID tamsulosin 0.4 mg capsule 0.4 mg PO QHS Label Comments: TAKE 1 CAPSULE BY MOUTH ONCE DAILY AT BEDTIME finasteride 5 mg tablet 5 mg PO DAILY oxybutynin chloride 5 mg Tablet 5 mg PO TID Changed prednisone 10 mg tablet 10 mg PO DAILY 30 Days Qty: 0 0RF Label Comments: TAKE 2 TABLETS BY MOUTH ONCE DAILY Held hydrocodone-homatropine 5-1.5 mg/5 mL syrup 5 ml PO Q6H PRN (Reason: Cough) Hold Instructions: Resume on 07/24/22. Label Comments: TAKE 5 ML BY MOUTH EVERY 6 HOURS NEEDED UP TO 7 DAYS Discontinued olanzapine [Zyprexa] 10 mg Tablet 10 mg PO DAILY oseltamivir 30 mg Capsule 30 mg PO BID Qty: 2 0RF vancomycin [Firvanq] 25 mg/mL Recon Soln 125 mg PO Q6 9 Days Qty: 180 0RF Referrals / Follow Up: Cecelia Villasenor DO [Primary Care Provider] - Within 1 Week Disposition Disposition (needs filled in before D/C Order can be placed): Home Health Service Charges/Coding Visit Charges Inpatient E&M: 37101 Disch Hosp >30min
--- NOTE | 2022-07-17 11:56 | CASEMGMT ---
QUINTON REA NOTE: Pt being discharged. Therapy notes reviewed. QUINTON REA to room. Pt sitting up in chair. Sitting beside pt. Introduced self and role. Discussed discharge planning and HHC. Inquired if they would like PT/OT added on for HHC. declines at this time. She states is aware to let HHC know if she changes her mind and would like them added. She voices understanding. Call to Deja @ [facility] and she was made aware pt is discharging today. SOC slated for tomorrow. and pt made aware. They are also aware [facility] will be working w/pt. denies having any further discharge planning needs or concerns. Juanpablo MURPHY RN CM
[2022-07-17] MEDS: 0.9% Saline Lock 10 ML Syringe IV (12:53)
[2022-07-17 13:15] VITALS: BP 117/68; PULSE 63; RESP 18; TEMP 36.9; O2SAT 93
--- NOTE | 2022-07-17 13:52 | PHA.DC.MR ---
Pharmacy Service has performed discharge medication reconciliation for this patient. The patient's discharge medication list was reviewed for discrepancies and discrepancies were resolved. Medication education papers prepared, patient discharged before I was able to addiction counselor. Home Medications ondansetron HCl 4 mg tablet 8 mg PO Q8H PRN PRN Nausea 12/06/21 pantoprazole 40 mg tablet,delayed release (Protonix) 40 mg PO BID GERD 12/06/21 tamsulosin 0.4 mg capsule 0.4 mg PO QHS urine flow 12/06/21 hydrocodone-homatropine 5 mg-1.5 mg/5 mL oral syrup 5 ml PO Q6H PRN Cough 04/19/22 finasteride 5 mg tablet 5 mg PO DAILY 04/28/22 oxybutynin chloride 5 mg tablet 5 mg PO TID bladder 07/15/22 amoxicillin 875 mg-potassium clavulanate 125 mg tablet 1 tab PO BID 2 days #5 tabs 07/17/22 mirtazapine 15 mg tablet 7.5 mg PO QHS 30 days #15 tabs 07/17/22 prednisone 10 mg tablet 10 mg PO DAILY Check with primary doctor 30 days #0 tabs 07/17/22
== END 2022-07-17 13:20 | disposition home health service (06) | DRG 871 ==
LOC: ED 12:54 → MS3 13:07
PROVIDERS: Emergency Provider Emergency Medicine; PCP Family Medicine; Visit Provider Internal Medicine
DX: A41.9 Sepsis, unspecified organism (principal); G93.41 Metabolic encephalopathy; J18.9 Pneumonia, unspecified organism; F05 Delirium due to known physiological condition; C16.9 Malignant neoplasm of stomach, unspecified; E11.9 Type 2 diabetes mellitus without complications; M35.3 Polymyalgia rheumatica; K22.70 Barrett's esophagus without dysplasia; Z87.891 Personal history of nicotine dependence; Z92.21 Personal history of antineoplastic chemotherapy; Z79.52 Long term (current) use of systemic steroids; R13.10 Dysphagia, unspecified; N40.1 Benign prostatic hyperplasia with lower urinary tract symptoms; R33.8 Other retention of urine
CPT/HCPCS: 36415; 36591; 71045; 71260; 74230; 80048; 80053; 80202; 81001; 83605; 85025; 85610; 85730; 87040; 87077; 87086; 87088; 87186; 87428; 87449; 87633; 87641; 92526; 92610; 92611; 93005; 94640; 94667; 94668; 97110; 97162; 97166; 97530; 97535; 99252; 99285; J2185; J7030; J7050; Q9967; A4216; G0463

== ENCOUNTER 2022-08-04 20:13 | Emergency (ER) | payer MEDICARE, OTHER, SELFPAY ==
[2022-08-04 20:15] VITALS: BP 107/64; PULSE 126; RESP 26; TEMP 36.8; O2SAT 64
--- NOTE | 2022-08-04 20:25 | EKG12_ITS ---
Test Reason : SOB Blood Pressure : / mmHG Vent. Rate : 156 BPM Atrial Rate : 000 BPM P-R Int : 000 ms QRS Dur : 126 ms QT Int : 290 ms P-R-T Axes : 000 078 -28 degrees QTc Int : 467 ms Atrial fibrillation with rapid ventricular response Right bundle branch block T wave abnormality, consider inferior ischemia Abnormal ECG Confirmed by ESTRELLITA TRUJILLO, CARLTON ([id number]), copy editor NITA ACEVEDO ([id number]) on 08/06/2022 8:19:24 AM Referred By: Confirmed By:CARLTON HARO MD
--- NOTE | 2022-08-04 20:27 | CT_ITS ---
We are attempting to reach an attending provider to discuss findings. An addendum with communication details will be sent when the communication is complete. STUDY: CTA CHEST REASON FOR EXAM: Male, 81 years old. tachycardia, hypoxia RADIATION DOSAGE (If Supplied By Facility): CTDIvol = ( 9.73 ) mGy, DLP = ( 400.81 ) mGycm TECHNIQUE: The examination was performed with the intravenous administration of IV 75mL Isovue-370. Post-processing of the angiographic images was performed, with multiplanar reformation and 2D reconstruction. Individualized dose optimization techniques were used for this CT. COMPARISON: July 14, 2022 FINDINGS: There is some respiratory motion artifact. Right-sided chest port. Grossly intact thyroid gland. No pathologic axillary adenopathy is identified. No pathologic mediastinal adenopathy. Normal aortic caliber. Small pericardial fluid. Moderate bilateral pleural effusions. Allowing for motion, findings suspicious for right upper lobe of pulmonary embolism axial image 140 through 143 for example. Coronal image 159 - 161 series 601. This patient does have some patchy groundglass opacity in the upper lungs bilaterally. Improved from prior. Dependent atelectatic changes are present. There is some bronchial debris in the mid to lower lungs bilaterally improved right lower lobe airspace disease. Interval worsening of left lower lobe airspace disease compared to prior. Abnormal hypodensity in the left upper kidney, new from prior study December 26, 2021. Thickened appearing stomach. Multilevel spinal degenerative change/DISH. CT/CTA Chest W/WO Contrast IMPRESSION: Allowing for motion artifact there are findings suspicious for right upper lobe pulmonary embolism. No definitive strain pattern currently. Bilateral lower lung bronchial debris suggesting aspiration with lower lung bronchial thickening and findings suggesting possible aspiration pneumonia. Slight interval worsening of left lower lung airspace disease compared to prior study and improvement in right lower lung and right upper lung airspace disease. Bilateral pleural effusions. Possible left hydronephrosis. Electronically Signed: Kee Kamara MD at 21:44 EDT ,
--- NOTE | 2022-08-04 20:30 | EDS_ITS ---
HPI History of Present Illness Chief Complaint: Shortness of Breath Detail of Chief Complaint: Shortness of breath Informant: patient and spouse/S.O. Narrative Narrative: Patient presents with shortness of breath that started this evening. Patient was doing relatively well throughout the day but then started gasping for air. Patient currently on hospice for history of stage IV stomach cancer. called hospice and they did not have staff available to help him so they were advised to call 911. On EMS arrival his O2 sat was 35%. Patient denies any chest pain. states he also had an episode of gasping for air last night that seemed to resolve after a time. Patient is DNR comfort care. does want him stabilized but no heroic measures as far as intubation. Patient recently discharged from [facility] where he was being treated for sepsis from UTI and pneumonia. 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 Bilateral low back pain with sciatica Cancer Complicated UTI (urinary tract infection) Diabetes mellitus Difficulty swallowing Erectile dysfunction Former smoker Gastric reflux History of steroid therapy Immunosuppression due to drug therapy Polymyalgia rheumatica Wears dentures Wears hearing aid Home Medications ondansetron HCl 4 mg tablet 8 mg PO Q8H PRN PRN Nausea 12/06/21 [History Last Taken Unknown] pantoprazole 40 mg tablet,delayed release (Protonix) 40 mg PO BID GERD 12/06/21 [History Last Taken 12/07/21 07:00] tamsulosin 0.4 mg capsule 0.4 mg PO QHS urine flow 12/06/21 [History Last Taken Unknown] hydrocodone-homatropine 5 mg-1.5 mg/5 mL oral syrup 5 ml PO Q6H PRN Cough 04/19/22 [History Last Taken Unknown] finasteride 5 mg tablet 5 mg PO DAILY 04/28/22 [History Last Taken Unknown] oxybutynin chloride 5 mg tablet 5 mg PO TID bladder 07/15/22 [History Last Taken Unknown] mirtazapine 15 mg tablet 7.5 mg PO QHS 30 days #15 tabs 07/17/22 [Rx Last Taken Unknown] prednisone 10 mg tablet 10 mg PO DAILY Check with primary doctor 30 days #0 tabs 07/17/22 [Rx Last Taken Unknown] Allergy/AdvReac Type Severity Reaction Status Date / Time No Known Allergies Allergy Verified 07/13/22 10:17 Family History Mother CVA (cerebral vascular accident) Cancer kidney Surgical History History of carpal tunnel release of both wrists History of esophagogastroduodenoscopy (EGD) Social History household members: spouse Smoking Status: Former smoker Tobacco: How many years used: 25 how long ago did patient quit smokin, 0.5ppd second hand exposure: Yes ROS ROS ED Review of Systems ROS Unobtainable: other Constitutional Constitutional ED: Reports lethargy; Denies chills, fever(s), sweats or weight loss Eyes Eyes: Denies blurry vision, change in vision or diplopia ENT ENT ED: Denies rhinorrhea or sore throat Cardiovascular Cardiovascular: Denies chest pain, orthopnea or racing heartbeat Respiratory/Chest Respiratory/Chest: Reports dyspnea and dyspnea on exertion; Denies cough, orthopnea or sputum Gastrointestinal Gastrointestinal: Denies abdominal pain, diarrhea, nausea or vomiting Genitourinary Genitourinary ED: Denies dysuria, hematuria or urinary frequency Musculoskeletal Musculoskeletal: Denies arthralgias, back pain, myalgias or neck pain Integumentary Denies abscess, Abrasions or rash Neurologic Neurologic: Denies headache(s) or weakness Psychiatric Psychiatric: Denies anxiety, depression or suicidal thoughts Endocrine Endocrinology: Denies polydipsia, polyphagia or polyuria Hematologic/Lymphatic Hematologic/Lymphatic: Denies easy bleeding, easy bruising or lymphadenopathy Allergic/Immunologic Allergic/Immunologic ED: Denies mouth swelling, tongue swelling or urticaria EXAM Physical Exam Const Vital Signs: 08/04/22 20:15 08/04/22 20:44 Temperature 98.3 F Temperature Source Temporal Pulse Rate 126 H 92 Respiratory Rate 26 H 24 H Blood Pressure 107/64 Blood Pressure Mean 78 Pulse Ox 64 Oxygen Delivery Method Nasal Cannula Oxygen Flow Rate (L/min) 2 Positive well nourished and well developed General Appearance ED: well developed and NAD HEENT Reports TM's clear and moist mucous membranes normocephalic and atraumatic; Negative for trauma or tenderness Tympanic Membrane ED: Yes TM's clear Eyes PERRL and EOMs intact bilaterally General Eye ED: Negative for pale conjunctiva or scleral icterus Neck no lymphadenopathy, supple and no JVD General: Negative for tenderness Chest Wall inspection of chest normal and palpation of chest normal Chest: Negative for tenderness Resp normal respiratory effort Resp Narrative: Course breath sounds bilaterally. Mild tachypnea. No accessory muscle use or retractions. Effort and Inspection: Negative for respiratory distress or pain with movement Auscultation: Negative for rhonchi, wheezes or diminished lung sounds Cardio regular rate, regular rhythm, S1 normal heart sound, S2 normal heart sound and no murmurs Peripheral Pulses: pulses 2+ throughout GI normal to inspection, nondistended, normoactive bowel sounds, soft to palpation, non-tender, non-distended and no masses Back/Spine no CVA tenderness and no thoracic nor lumbar tenderness Extremity normal to inspection General Extremety ED: Negative for edema General Extremity: Negative for edema Neuro oriented x3, CN's II-XII intact bilaterally, no sensory deficits noted and gait normal Sensorium / Orientation: awake, alert, oriented to person, oriented to place and oriented to time Motor Exam: strength 5/5 throughout and strength abnormal Psych mental status grossly normal Skin no rashes or lesions noted and no wounds MDM MDM MDM Narrative Medical decision making narrative: once patient stabilized for his hypoxemia and dyspnea. Etiology of dyspnea at this time unclear although in the differential would be infectious etiology such as pneumonia versus PE versus acute coronary syndrome or CHF. Patient had an IV line established. He was placed on a nonrebreather mask. He was ordered a DuoNeb aerosol. IV line established. Patient placed on a monitoring analyst. Patient was placed on Airvo. Patient had blood work obtained that showed an elevated white count of 26,000. Chemistries unremarkable. Troponin was elevated at 73. CTA of the chest obtained showed a right upper lobe PE as well as concern for aspiration pneumonia and bilateral effusions. I discussed case results with patient's and patient. The hospice nurse also arrived to the emergency department to evaluate patient. Hospice and patient and his had a long discussion and they would like to go to inpatient hospice where they can treat with oxygen and comfort measures as well as antibiotics. was not darlene e if she wanted to pursue anticoagulation for the PE. Lab Data Attestation: I reviewed the patient's lab results. Critical Care Time Critical care time (excluding procedures): 30-74 minutes, Including time spent:, Discussing w/Patient &/or Family/Com Writer, Discussing w/Consultants, Arranging Admission or Transfer, Performing Direct Patient Care at Bedside and - (30 minutes) Discharge Plan Triage Chief Complaint: Shortness of Breath ED Provider: Katt Amaya Dx/Rx/DC Orders Clinical Impression: Atrial fibrillation with rapid ventricular response, Hypoxemia, Aspiration pneumonia, Pulmonary emboli Prescriptions: No Action ondansetron HCl 4 mg tablet 8 mg PO Q8H PRN PRN (Reason: Nausea) Label Comments: TAKE 1 TABLET BY MOUTH EVERY 8 HOURS NEEDED FOR NAUSEA AND VOMITING pantoprazole [Protonix] 40 mg Tablet,Delayed Release (Dr/Ec) 40 mg PO BID tamsulosin 0.4 mg capsule 0.4 mg PO QHS Label Comments: TAKE 1 CAPSULE BY MOUTH ONCE DAILY AT BEDTIME hydrocodone-homatropine 5-1.5 mg/5 mL syrup 5 ml PO Q6H PRN (Reason: Cough) Hold Instructions: Resume on 07/24/22. Label Comments: TAKE 5 ML BY MOUTH EVERY 6 HOURS NEEDED UP TO 7 DAYS finasteride 5 mg tablet 5 mg PO DAILY oxybutynin chloride 5 mg Tablet 5 mg PO TID mirtazapine 15 mg Tablet 7.5 mg PO QHS 30 Days Qty: 15 0RF prednisone 10 mg tablet 10 mg PO DAILY 30 Days Qty: 0 0RF Label Comments: TAKE 2 TABLETS BY MOUTH ONCE DAILY Primary Care Provider: Cecelia Villasenor Referrals: Cecelia Villasenor DO [Primary Care Provider] - Disposition Disposition: Hospice in Medical Facility
--- NOTE | 2022-08-04 20:40 | ED.RN ---
Pt arrives to ED via squad due to being at home on hospice, patient was filling up with fluid and they did not have comfort medications or oxygen at home. Hospice then encouraged them to call 911 to have the ED stabilize this patient. This RN calls [facility] behavioral health consultant nurse, I informed her that family is unsure of hospice guidelines and patient is getting blood work and imaging. Nurse states thats ok, once we have him stabilized I am to call her back and they can get patient set up at home with oxygen and medications to control secretions. Per EMS patient was 50% on RA and had very labored breathing. Pt arrives in same condition with dried blood around his lips. Dr Amaya spoke with patient and at length and they want to find out ' wrong to see if its reversible
[2022-08-04 20:44] VITALS: PULSE 92; RESP 32
[2022-08-04] MEDS: Ipratropium/Albuterol Sulfate 3 ML AMPUL.NEB INHALATION (20:44)
[2022-08-04] MEDS: 0.9% Normal Saline 1,000 ML 150 ML IV (20:53)
--- NOTE | 2022-08-04 20:58 | ED.RN ---
dr luna advised that bp is 95/52 (67) at this time. he requests holding cardizem for now.
[2022-08-04 21:05] VITALS: PULSE 144; RESP 32; O2SAT 88
[2022-08-04 21:17] LABS: Absolute Lymphocyte Count 1.36 X10^3/uL (0.83-4.51); Absolute Neutrophil Count 23.4 X10^3/uL (2.0-7.7); Basophil# 0.04 X10^3/uL; Basophil% 0.2 % (0-1); Eosinophil# 0.05 X10^3/uL; Eosinophils% 0.2 % (0-5); Hematocrit 33.1 % (40-54); Hemoglobin 10.1 g/dL (13.0-16.5); Lymphocyte # 1.36 X10^3/ul (0.83-4.51); Lymphocyte % 5.2 % (19-41); Mean Corp Hgb Conc 30.5 g/dL (32-36); Mean Corpuscular Hgb 28.4 pg (27.0-32.0); Mean Platelet Vol. 12.2 fl (6.2-12.0); Monocyte# 1.06 X10^3/uL; NRBC Flagged by Analyzer 0 % (0-5); Neutrophil # 23.35 X10^3/uL (2.7-7.7); Neutrophil % 88.4 % (47-70); POSITIVE DIFFERENTIAL YES; Platelet Count 340 K/mm3 (150-450); RBC Distribution Width CV 17.9 % (11.6-14.6); RBC Distribution Width SD 60.8 fl (35.1-43.9); Red Blood Count 3.56 M/mm3 (4.6-6.2); White Blood Count 26.4 K/mm3 (4.4-11.0)
[2022-08-04 21:19] LABS: Differential Indicated SCAN CRITERIA MET
--- NOTE | 2022-08-04 21:30 | ED.RN ---
bottom turner toñito present. at this time pt care focus is transitioning to comfort care measures only in anticipation of transfer to inpatient hospice.
[2022-08-04 21:37] LABS: Anion Gap 9 (5-15); BUN 50 mg/dL (7-18); BUN/Creat Ratio 42.4 RATIO (10-20); Calcium,Total 8.9 mg/dL (8.5-10.1); Chloride 110 mmol/L (98-107); Creatinine, Serum 1.18 mg/dL (0.70-1.30); EST Glomerular Filtration Rate 63 mL/min (>60); Est Glom Filt Rate - Afr Amer 77 mL/min (>60); Estimated Creatinine Clearance 54.57 ml/min; Glucose 173 mg/dL (74-106); Potassium 4.7 mmol/L (3.5-5.1); Sodium Level 142 mmol/L (136-145); Troponin-I HS 94 pg/mL (3.0-78.0)
[2022-08-04 21:50] LABS: Differential Comment SCANNED
[2022-08-04 22:06] LABS: BNP,B-Type NATRIURETIC PEPTIDE 51.8 pg/mL (0-100)
[2022-08-04] MEDS: LORazepam 2 MG/ML Syringe 1 MG IV (22:32)
[2022-08-04 23:00] VITALS: O2SAT 97
--- NOTE | 2022-08-04 23:39 | ED.RN ---
Addendum entered by Brianna Prabhakar 08/04/22 23:51: PHYSICIANS CALLED BACK [id number], [facility] GIVEN ETA 30 MIN Original Note: CALLED PHYSICIANS APPROX [id number] GIVEN ETA 5AM FOR SQUAD. PHYSICIANS WILL CALL FOR POSSIBLE OUT SOURCES AND CALL [facility] BACK.
[2022-08-05 00:16] VITALS: BP 103/65; PULSE 31; RESP 18; O2SAT 95
[2022-08-05] MEDS: LORazepam 2 MG/ML Syringe 1 MG IV (00:22)
== END 2022-08-05 00:30 | disposition hospice, inpatient (51) ==
PROVIDERS: Emergency Provider Emergency Medicine; PCP Family Medicine; Visit Provider Emergency Medicine
DX: I26.99 Other pulmonary embolism without acute cor pulmonale (principal); J69.0 Pneumonitis due to inhalation of food and vomit; I48.91 Unspecified atrial fibrillation; E11.9 Type 2 diabetes mellitus without complications; Z87.891 Personal history of nicotine dependence; R09.02 Hypoxemia; Z51.5 Encounter for palliative care; R00.0 Tachycardia, unspecified; Z85.028 Personal history of other malignant neoplasm of stomach; K21.9 Gastro-esophageal reflux disease without esophagitis; K22.70 Barrett's esophagus without dysplasia
CPT/HCPCS: 36591; 71275; 80048; 83880; 84484; 85025; 93005; 94640; 94660; 96361; 96365; 96372; 96375; 96376; 99285; J7030; Q9967; A4216